=== PATIENT | female | born 1970 ===

== ENCOUNTER 2020-05-03 10:36 | Outpatient (REF) | payer MEDICAID, SELFPAY | END 2020-05-03 10:37 | disposition home or self-care (01) | LOC: HO.LAB 10:36 | PROVIDERS: PCP Physician Assistant Medical; Visit Provider Internal Medicine Gastroenterology | DX: Z13.89 Encounter for screening for other disorder (principal) ==

== ENCOUNTER 2020-05-07 10:52 | Outpatient (REF) | payer MEDICAID, SELFPAY | END 2020-05-07 10:53 | disposition home or self-care (01) | LOC: HO.LNP 10:52 | PROVIDERS: Visit Provider Internal Medicine Gastroenterology | DX: B96.81 Helicobacter pylori [H. pylori] as the cause of diseases classified elsewhere (principal) | CPT/HCPCS: 87338 ==

== ENCOUNTER → 2020-05-24 09:30 | Outpatient (BNVA) | payer MEDICAID, SELFPAY | PROVIDERS: PCP Physician Assistant Medical; Visit Provider Internal Medicine Gastroenterology | DX: Z76.89 Persons encountering health services in other specified circumstances (principal) ==

== ENCOUNTER 2020-05-26 21:18 | Emergency (ER) | payer MEDICAID, SELFPAY ==
[2020-05-26 21:29] VITALS: BP 111/79; PULSE 94; RESP 18; TEMP 37.1; O2SAT 98; BMI 28.3
--- NOTE | 2020-05-26 21:51 | CT_ITS ---
EXAMINATION: CT ABDOMEN AND PELVIS WITH CONTRAST CLINICAL INFORMATION: Abdominal pain. COMPARISON: CT abdomen and pelvis from 12/05/2019. TECHNIQUE: Multidetector volumetric imaging was performed through the abdomen and pelvis after the administration of 85 mL of Omnipaque 350 intravenous contrast. Sagittal and coronal reformatted images were obtained on the technologist's workstation. DLP: 528 mGy-cm. This CT examination was performed using dose optimization techniques as appropriate, variously including the following: *Automated exposure control. *Adjustment of mA and/or kV according to patient size (this includes techniques or standardized protocols for targeted exams where dose is matched to indication/reason for exam; i.e. extremities or head). *Use of iterative reconstruction technique. FINDINGS: Lower Chest: Mild bilateral dependent atelectasis. Otherwise, no diffuse or focal parenchymal abnormalities in the visualized lung bases. No demonstrated abnormalities of the visualized cardiac structures. Liver, Biliary Ducts, and Gallbladder: The liver is normal in size and attenuation without focal hepatic lesions or biliary ductal dilatation. The gallbladder is physiologically distended without radiopaque gallstones, pericholecystic fluid, or significant gallbladder wall thickening. Pancreas: The pancreas is normal in appearance. Adrenal Glands: The adrenal glands are normal in appearance. Spleen: The spleen is normal in appearance. Kidneys and Ureters: The kidneys demonstrate symmetric nephrograms without evidence of nephrolithiasis or hydronephrosis. No ureterolithiasis or hydroureter. Urinary Bladder: The urinary bladder is partially distended without focal wall thickening. No bladder calculi are demonstrated. Gastrointestinal System: The stomach is decompressed and therefore not well evaluated on this exam. The small bowel is of normal caliber without regions of abnormal wall enhancement. Potential mild circumferential wall thickening of the distal rectum. Otherwise, the colon is normal in appearance without focal wall thickening or pericolonic inflammatory change. Normal appendix. Genitourinary: Partially calcified 1.8 cm nodule along the posterior wall of the uterus is consistent with a uterine fibroid. Mildly lobulated contours of the remainder of the uterus suggestive of additional small noncalcified fibroids. Fibroids No adnexal soft tissue masses. Intra-abdominal and Retroperitoneal Spaces: No intra-abdominal free fluid collections or gas. No mesenteric, retroperitoneal, or inguinal lymphadenopathy. Vasculature: The abdominal aorta is of normal contour and caliber. Musculoskeletal: Mild to moderate multilevel degenerative changes of the spine. Advanced degenerative disc disease at L5-S1. No lytic or sclerotic osseous lesions demonstrated. No soft tissue masses demonstrated. CT/CT abdomen pelvis w con IMPRESSION: 1. Inflammatory change previously demonstrated at the splenic flexure of the colon is largely resolved compared to exam from 12/05/2019. Potential slight wall thickening of the distal rectum. Recommend correlation with symptoms of proctitis. 2. Multi-fibroid uterus. 3. No additional CT abnormalities explain the patient's symptoms.
[2020-05-26 22:00] VITALS: BP 114/78; PULSE 81; RESP 16; O2SAT 98
[2020-05-26] MEDS: HYDROmorphone HCl 0.5 MG/0.5 ML SYRINGE IVPUSH (22:01)
--- NOTE | 2020-05-26 22:01 | ED_ITS ---
HPI - Abdominal Pain General Chief Complaint: Abdominal Pain Stated Complaint: Abdominal pian Time Seen by Provider: 05/26/20 21:45 History of Present Illness HPI narrative: patient is a 49-year-old female presents today with having abdominal pain that is ongoing for the last 3 days. It is worse over the left side. No history of similar pain in the past. History of diverticulitis in the past. No cough no congestion or upper respiratory symptoms. No diaphoresis. No fever. Positive BM. Patient did have some diarrhea. History of H pylori infections in the past. Patient denies any vomiting. Positive nausea. He is sexually active does not think she is . No vaginal discharge. No pain on urination. Patient from home. No recent travel. Related Data Home Medications Medication Instructions Recorded Confirmed acetaminophen 650 mg 650 mg PO Q12H 05/24/20 05/24/20 tablet,extended release lisinopril 10 mg tablet 10 mg PO DAILY 05/24/20 05/24/20 omeprazole 20 mg capsule,delayed 20 mg PO DAILY 05/24/20 05/24/20 release Previous Rx's Medication Instructions Recorded amoxicillin 500 mg capsule 500 mg PO TID 10 Days #30 cap 05/24/20 bismuth subsalicylate 262 mg 2 tab PO QID PRN 10 Days #80 tab 05/24/20 chewable tablet metronidazole 500 mg tablet 500 mg PO TID 10 Days #30 tab 05/24/20 Allergies Allergy/AdvReac Type Severity Reaction Status Date / Time doxycycline Allergy Unknown Itching Verified 05/26/20 21:28 oxycodone Allergy Unknown Itching Verified 05/26/20 21:28 Tylox Allergy Unknown Itching Uncoded 05/24/20 09:32 Review of Systems Review of Systems Constitutional: No Weight loss, No Fever, No Chills, No Night Sweats, No Fatigue, No Malaise ENT/Mouth: No Hearing loss, No Ear Pain, No Nasal Congestion, No Sinus Pain, No Hoarseness, No sore throat, No Rhinorrhea, No Swallowing Difficulty Eyes: No Eye Pain, No Swelling, No Redness, No Foreign Body, No Discharge, No Vision Changes Cardiovascular: No Chest Pain, No SOB, No Dyspnea on Exertion, No Orthopnea, No Edema, No Palpitations Respiratory: No Cough, No Sputum, No Wheezing, No Smoke Exposure, No Dyspnea Gastrointestinal: positive nausea, positive abdominal pain positive diarrhea Genitourinary: no irregular bleeding, No Dysuria, No Urinary Frequency, No Hem aturia, No Urinary Incontinence, No Urgency, No Flank Pain, No Urinary Flow Changes, No Hesitancy Musculoskeletal: No joint pain, No Myalgias, No Joint Swelling Skin: No Skin Lesions, No rash Neuro: No Weakness, No Numbness, No Paresthesias, No Loss of Consciousness, No Dizziness, No Headache Psych: No Anxiety/Panic, No Depression, No SI/HI/AH/VH, No Social Issues, Heme/Lymph: No Bruising, No Bleeding,No Lymphadenopathy Endocrine: No Polyuria, No Polydipsia, No Temperature Intolerance Physical Exam Vital Signs: Vital Signs: Last Vital Signs Temp 98.7 F 05/26/20 21:29 Pulse 81 05/27/20 00:00 Resp 16 05/27/20 00:00 BP 128/87 05/27/20 00:00 Pulse Ox 98 05/27/20 00:00 Body Mass Index 28.3 Appearance: Alert. Oriented X3. No acute distress. Eyes: Pupils equal, round and reactive to light. ENT: Pharynx normal. Neck: Normal inspection. Neck supple. No lymph nodes noted. No crepitus CVS: Normal heart rate and rhythm. Pulses normal. Normal S1 and S2 Respiratory: No respiratory distress. Breath sounds normal. No Wheezing. No rales Abdomen: mild left lower quadrant tenderness no rebound or guarding Skin: Skin warm and dry. Normal skin color. Normal skin turgor. Extremities: No lower extremity edema. Neurovascular intact to all extremities. No Lacerations. No Rash Neuro: Oriented X 3. No motor deficit. No sensory deficit. Moving all extermities. No slurred speech MDM - Abdominal Pain MDM Narrative Medical decision making narrative: Patient's urine showed no evidence of infection. test is negative. No evidence for ectopic . Electrolytes unremarkable. CT scan of the abdomen showed no evidence of bowel obstruction, abscess, perforation. No evidence for kidney stone.Question mild proctitis noted. Positive fibroid noted. Patient well-appearing will discharge patient home. Close follow-up on an outpatient basis. Differential Diagnosis Differential diagnosis: Likely abdominal pain Medical Records Attestation: I reviewed the patient's medical records. Lab Data Attestation: I reviewed the patient's lab results. Result diagrams: 05/26/20 21:59 05/26/20 21:59 Labs: Lab Results 05/26/20 05/26/20 05/26/20 Range/Units 21:59 21:59 21:59 WBC 6.1 (4.8-10.8) X10*3/uL RBC 3.77 L (4.20-5.50) X10*6/uL Hgb 11.8 L (12.0-16.0) g/dl Hct 35.9 L (37-47) % MCV 95.2 (80-98) fL MCH 31.3 (27.0-33.0) pg MCHC 32.9 (31.0-35.0) g/dl RDW 12.5 (11.0-16.0) % Plt Count 240 (160-400) X10*3/uL MPV 10.9 (9.4-12.3) fL Immature Gran % (Auto) 0.2 (0.0-0.4) % Neut % (Auto) 40.0 L (45-73) % Lymph % (Auto) 47.6 H (20-40) % [place] % (Auto) 8.6 (2-11) % Eos % (Auto) 3.1 (0-4) % Baso % (Auto) 0.5 (0-2) % Lymph # (Auto) 2.9 (1.2-4.9) X10*3/uL [place] # (Auto) 0.5 (0.1-1.2) X10*3/uL Eos # (Auto) 0.2 (0.0-0.4) X10*3/uL Baso # (Auto) 0.0 (0.0-0.2) X10*3/uL Abs Immat Gran (auto) 0.01 (0.00-0.03) X10*3/uL Absolute Neuts (auto) 2.5 (2.0-8.3) X10*3/uL Absolute Nucleated RBC 0.000 (0.0-0.012) X10*3/uL Nucleated RBC % (auto) 0.0 (0.0-0.2) /100WBC Hold Blue Top SEE NOTE Sodium 142 (135-145) mmol/L Potassium 3.7 (3.3-5.1) mmol/l Chloride 107 (96-108) mmol/L Carbon Dioxide 26 (22-29) mmol/L Anion Gap 13 (12-20) BUN 16 (9-16) mg/dL Creatinine 0.67 (0.5-1.4) mg/dL Estim Creat Clear Calc 82.3 Estimated GFR > 60 Random Glucose 93 (60-115) mg/dL Calcium 8.6 (8.4-10.2) mg/dL Total Bilirubin 0.3 (0.0-1.0) mg/dL AST 18 (5-31) U/L ALT 15 (0-31) U/L Alkaline Phosphatase 79 (39-117) U/L Total Protein 6.8 (6.5-8.0) g/dL Albumin 4.2 (3.5-5.0) g/dL Lipase 22 (8-78) U/L Urine Color Urine Appearance Urine pH (5.0-8.0) Ur Specific [place] (1.005-1.025) Urine Protein (NEG-TRACE) MG/DL Urine Glucose (UA) (NEG) MG/DL Urine Ketones (NEG) MG/DL Urine Blood (NEG) Urine Nitrite (NEG) Ur Leukocyte Esterase (NEG) Urine Test (NEGATIVE) 05/26/20 Range/Units 22:03 WBC (4.8-10.8) X10*3/uL RBC (4.20-5.50) X10*6/uL Hgb (12.0-16.0) g/dl Hct (37-47) % MCV (80-98) fL MCH (27.0-33.0) pg MCHC (31.0-35.0) g/dl RDW (11.0-16.0) % Plt Count (160-400) X10*3/uL MPV (9.4-12.3) fL Immature Gran % (Auto) (0.0-0.4) % Neut % (Auto) (45-73) % Lymph % (Auto) (20-40) % [place] % (Auto) (2-11) % Eos % (Auto) (0-4) % Baso % (Auto) (0-2) % Lymph # (Auto) (1.2-4.9) X10*3/uL [place] # (Auto) (0.1-1.2) X10*3/uL Eos # (Auto) (0.0-0.4) X10*3/uL Baso # (Auto) (0.0-0.2) X10*3/uL Abs Immat Gran (auto) (0.00-0.03) X10*3/uL Absolute Neuts (auto) (2.0-8.3) X10*3/uL Absolute Nucleated RBC (0.0-0.012) X10*3/uL Nucleated RBC % (auto) (0.0-0.2) /100WBC Hold Blue Top Sodium (135-145) mmol/L Potassium (3.3-5.1) mmol/l Chloride (96-108) mmol/L Carbon Dioxide (22-29) mmol/L Anion Gap (12-20) BUN (9-16) mg/dL Creatinine (0.5-1.4) mg/dL Estim Creat Clear Calc Estimated GFR Random Glucose (60-115) mg/dL Calcium (8.4-10.2) mg/dL Total Bilirubin (0.0-1.0) mg/dL AST (5-31) U/L ALT (0-31) U/L Alkaline Phosphatase (39-117) U/L Total Protein (6.5-8.0) g/dL Albumin (3.5-5.0) g/dL Lipase (8-78) U/L Urine Color YELLOW Urine Appearance CLEAR Urine pH 6.0 (5.0-8.0) Ur Specific [place] 1.025 (1.005-1.025) Urine Protein NEG (NEG-TRACE) MG/DL Urine Glucose (UA) NEG (NEG) MG/DL Urine Ketones NEG (NEG) MG/DL Urine Blood NEG (NEG) Urine Nitrite NEG (NEG) Ur Leukocyte Esterase NEG (NEG) Urine Test NEGATIVE (NEGATIVE) Discharge Plan Discharge Clinical Impression: Abdominal pain in female, Fibroid Patient Disposition: Home, Self-Care Prescriptions: No Action metronidazole 500 mg tablet 500 mg PO TID 10 Days Qty: 30 RF: 0 lisinopril 10 mg tablet 10 mg PO DAILY RF: 0 omeprazole 20 mg capsule,delayed release(DR/EC) 20 mg PO DAILY RF: 0 acetaminophen [Tylenol 8 Hour] 650 mg tablet extended release 650 mg PO Q12H RF: 0 bismuth subsalicylate 262 mg tablet,chewable 2 tab PO QID PRN (Reason: diarrhea) 10 Days Qty: 80 RF: 0 amoxicillin 500 mg capsule 500 mg PO TID 10 Days Qty: 30 RF: 0 Referrals: Physician,Unknown [Primary Care Provider] - 2 days Print Language: [place] COUNTS INCLUDE 234 BEDS AT THE [facility] Past Medical History Attestation statement: The following information was validated with the patient. Surgical History History of colonoscopy Hx of endoscopy Family History Family History Father Alive and well Mother Hx of diabetes insipidus Social History Social History Alcohol intake: current Alcohol intake frequency: holidays/special occasions only Smoking Status: Never smoker Substance Use Type: Marijuana Advance Directives: No Advance Directives Information Provided: No
[2020-05-26] MEDS: 0.9 % Sodium Chloride 1,000 ML 999 ML IVCONT (22:02)
[2020-05-26 22:07] LABS: MANUAL DIFF FLAG NO
[2020-05-26 22:10] LABS: Basophils Percent Auto 0.5 % (0-2); Eosinophils Absolute Auto 0.2 X10*3/uL (0.0-0.4); Eosinophils Percent Auto 3.1 % (0-4); Hematocrit 35.9 % (37-47); Hemoglobin 11.8 g/dl (12.0-16.0); Imm Gran Abs Auto 0.01 X10*3/uL (0.00-0.03); Imm Gran Pct Auto 0.2 % (0.0-0.4); Lymphocytes Absolute Auto 2.9 X10*3/uL (1.2-4.9); Lymphocytes Percent Auto 47.6 % (20-40); Mean Corpuscular HGB Conc 32.9 g/dl (31.0-35.0); Mean Corpuscular Hemoglobin 31.3 pg (27.0-33.0); Mean Corpuscular Volume 95.2 fL (80-98); Mean Platelet Volume 10.9 fL (9.4-12.3); Monocytes Absolute Auto 0.5 X10*3/uL (0.1-1.2); Monocytes Percent Auto 8.6 % (2-11); Neutrophils Absolute Auto 2.5 X10*3/uL (2.0-8.3); Platelet Count 240 X10*3/uL (160-400); Red Blood Count 3.77 X10*6/uL (4.20-5.50); Red Cell Distribution Width 12.5 % (11.0-16.0); White Blood Count 6.1 X10*3/uL (4.8-10.8)
[2020-05-26 22:14] LABS: Glucose Urine UA NEG (NEG); Leukocyte Esterase Urine NEG (NEG); Nitrite Urine NEG (NEG); Specific Gravity - Urine 1.025 (1.005-1.025); Urine Blood NEG (NEG); Urine Ketones NEG (NEG); Urine Protein NEG (NEG-TRACE)
[2020-05-26 22:17] LABS: Appearance Urine CLEAR; Color Urine YELLOW
[2020-05-26 22:18] LABS: UPreg QC Valid YES; Urine Pregnancy NEGATIVE (NEGATIVE)
[2020-05-26 22:30] LABS: Alanine Aminotransferase 15 U/L (0-31); Albumin Level 4.2 g/dL (3.5-5.0); Alkaline Phosphatase 79 U/L (39-117); Anion Gap 13 (12-20); Aspartate Amino Transferase 18 U/L (5-31); Bilirubin Total 0.3 mg/dL (0.0-1.0); Blood Urea Nitrogen 16 mg/dL (9-16); Calcium 8.6 mg/dL (8.4-10.2); Carbon Dioxide 26 mmol/L (22-29); Chloride 107 mmol/L (96-108); Creatinine Clr Calc Pharmacy 82.3; Estimated Glomerular Filt Rate > 60; Glucose Random 93 mg/dL (60-115); Lipase 22 U/L (8-78); Potassium 3.7 mmol/l (3.3-5.1); Sodium 142 mmol/L (135-145); Total Protein 6.8 g/dL (6.5-8.0)
[2020-05-26] MEDS: iohexoL 350 MG/ML 100 ML INFUS..BTL IV (22:49)
[2020-05-26 23:46] VITALS: BP 116/74; RESP 16; O2SAT 98
[2020-05-27] VITALS: BP 128/87; PULSE 81; RESP 16; O2SAT 98
== END 2020-05-27 00:27 | disposition home or self-care (01) ==
PROVIDERS: Emergency Provider Emergency Medicine Emergency Medical Services
DX: R10.32 Left lower quadrant pain (principal); D25.9 Leiomyoma of uterus, unspecified; I10 Essential (primary) hypertension
CPT/HCPCS: 36415; 74177; 80053; 81003; 81025; 83690; 85025; 99284; J1170; Q9967

== ENCOUNTER 2020-08-08 11:24 | Emergency (ER) | payer MEDICAID, SELFPAY | END 2020-08-08 14:24 | disposition left against medical advice (07) | PROVIDERS: Emergency Provider Emergency Medicine; PCP Physician Assistant Medical | DX: R10.9 Unspecified abdominal pain (principal) ==

== ENCOUNTER 2020-08-14 07:16 | Outpatient (REF) | payer MEDICAID, SELFPAY | END 2020-08-14 07:17 | disposition home or self-care (01) | LOC: HO.LNP 07:16 | PROVIDERS: Visit Provider Internal Medicine Gastroenterology | DX: K29.70 Gastritis, unspecified, without bleeding (principal); B96.81 Helicobacter pylori [H. pylori] as the cause of diseases classified elsewhere; R10.9 Unspecified abdominal pain | CPT/HCPCS: 87338 ==

== ENCOUNTER → 2020-09-06 09:15 | Outpatient (BNVA) | payer MEDICAID, SELFPAY | PROVIDERS: PCP Physician Assistant Medical; Visit Provider Internal Medicine Gastroenterology ==

== ENCOUNTER 2020-09-27 09:58 | Outpatient (REF) | payer MEDICAID, SELFPAY ==
--- NOTE | ~2020-09-27 | US_ITS ---
EXAMINATION: US PELVIS, COMPLETE CLINICAL INFORMATION: Leiomyoma of the uterus. COMPARISON: CT 05/26/2020. Ultrasound 03/02/2009. TECHNIQUE: Transabdominal and transvaginal imaging was performed. FINDINGS: LMP: Postmenopausal. Uterus is anteverted, measuring 8.2 x 4 x 5.7 cm. Endometrial thickness 0.6 cm. Heterogeneous echotexture of the myometrium. Multiple heterogeneous hypoechoic foci within the uterus, probably reflecting fibroids. Hypoechoic focus in the fundus measuring 2.6 cm; hypoechoic focus in the mid body anteriorly measuring 0.8 cm; hypoechoic focus in the posterior body measuring 1.7 cm. Right ovary measures 2.2 x 1 x 2.6 cm. Volume 3 mL. Left ovary measures 2.3 x 1.1 x 1.7 cm. Volume 2.3 mL. Bilateral ovaries appear unremarkable. No free fluid in the cul-de-sac. US/US pelvic complete IMPRESSION: 1. Multiple hypoechoic foci in the uterine parenchyma, probable fibroids. Largest measures 2.6 cm. 2. Endometrial thickness 0.6 cm. Patient is postmenopausal. Please clinically correlate. If the patient is symptomatic, further evaluation would be needed. Guidelines for postmenopausal patients the endometrial thicknesses limits are as follows: ? 8mm or less is normal if no bleeding (10mm is okay if on tamoxifen) ? 4mm max if bleeding ? Pre-menopausal patients, the endometrium can become very thick during the menstrual cycle, normally up to 15mm
--- NOTE | ~2020-09-27 | US_ITS ---
EXAMINATION: US ABDOMEN COMPLETE CLINICAL INFORMATION: Generalized abdominal pain. COMPARISON: CT abdomen and pelvis 05/26/2020. Ultrasound abdomen complete 10/30/2012. TECHNIQUE: Real-time imaging of the abdominal viscera. FINDINGS: PANCREAS: The visualized head and body of the pancreas appears unremarkable. Remainder of the pancreas is obscured by bowel gas. ABDOMINAL AORTA: The proximal, mid, and distal segments are normal in caliber. INFERIOR VENA CAVA: Visualized portions are normal. LIVER: Normal. The liver is normal in size. The liver contour is normal. Parenchymal echogenicity is normal. No focal hepatic lesion. There is no intrahepatic biliary duct dilatation seen. GALLBLADDER: Normal. The gallbladder is physiologically distended without evidence of stones, sludge, polyps, wall thickening or pericholecystic fluid. COMMON BILE DUCT: Normal in caliber measuring 0.4 cm in diameter. RIGHT KIDNEY: Normal. No hydronephrosis. No renal calculi or focal parenchymal lesions. The kidney measures 11.0 cm in maximum dimension. LEFT KIDNEY: Normal. No hydronephrosis. No renal calculi or focal parenchymal lesions. The kidney measures 10.8 cm in maximum dimension. SPLEEN: Normal. The spleen measures 10.2 cm in maximum dimension. FREE FLUID: None. US/US abdomen complete IMPRESSION: 1. No acute findings seen. 2. Unremarkable abdominal ultrasound. Etiology of patient's symptoms has not been determined by ultrasound.
--- NOTE | ~2020-09-27 | US_ITS ---
EXAMINATION: US PELVIS, COMPLETE CLINICAL INFORMATION: Leiomyoma of the uterus. COMPARISON: CT 05/26/2020. Ultrasound 03/02/2009. TECHNIQUE: Transabdominal and transvaginal imaging was performed. FINDINGS: LMP: Postmenopausal. Uterus is anteverted, measuring 8.2 x 4 x 5.7 cm. Endometrial thickness 0.6 cm. Heterogeneous echotexture of the myometrium. Multiple heterogeneous hypoechoic foci within the uterus, probably reflecting fibroids. Hypoechoic focus in the fundus measuring 2.6 cm; hypoechoic focus in the mid body anteriorly measuring 0.8 cm; hypoechoic focus in the posterior body measuring 1.7 cm. Right ovary measures 2.2 x 1 x 2.6 cm. Volume 3 mL. Left ovary measures 2.3 x 1.1 x 1.7 cm. Volume 2.3 mL. Bilateral ovaries appear unremarkable. No free fluid in the cul-de-sac. US/US transvaginal IMPRESSION: 1. Multiple hypoechoic foci in the uterine parenchyma, probable fibroids. Largest measures 2.6 cm. 2. Endometrial thickness 0.6 cm. Patient is postmenopausal. Please clinically correlate. If the patient is symptomatic, further evaluation would be needed. Guidelines for postmenopausal patients the endometrial thicknesses limits are as follows: ? 8mm or less is normal if no bleeding (10mm is okay if on tamoxifen) ? 4mm max if bleeding ? Pre-menopausal patients, the endometrium can become very thick during the menstrual cycle, normally up to 15mm
== END 2020-09-27 09:59 | disposition home or self-care (01) ==
LOC: HO.US 09:58
PROVIDERS: Visit Provider Internal Medicine Gastroenterology
DX: R10.84 Generalized abdominal pain (principal); D25.9 Leiomyoma of uterus, unspecified
CPT/HCPCS: 76700; 76830; 76856

== ENCOUNTER → 2020-10-04 12:18 | Outpatient (BNVA) | payer MEDICAID, SELFPAY | PROVIDERS: PCP Physician Assistant Medical; Visit Provider Internal Medicine Gastroenterology ==

== ENCOUNTER 2021-01-10 01:13 | Emergency (ER) | payer MEDICAID, SELFPAY ==
[2021-01-10 01:21] VITALS: BP 119/47; PULSE 63; RESP 16; TEMP 36.4; O2SAT 100; BMI 27.3
--- NOTE | 2021-01-10 01:22 | ED.ABDPAIN ---
HPI - Abdominal Pain General Chief Complaint: Abdominal Pain Stated Complaint: abdominal pain and dizziness Time Seen by Provider: 01/10/21 01:21 Source: patient Mode of arrival: ambulatory Limitations: no limitations History of Present Illness HPI narrative: Patient's history of GERD, dysphagia, intermittent episode of abdominal pain and with diarrhea alternating with constipation had endoscopy in 02/08 which shows mild gastric erythema and chronic appearing erosions colonoscopy showed hyperplastic polyp and moderate diverticulosis , patient had a episode of diverticulitis 2013 patient been treated for H pylori in 02/08. last night patient had heavy meal went to sleep at 09:30 woke up prior to arrival with diffuse abdominal pain nausea and diarrhea. Patient denies any urine complaints no fever no chills Related Data Home Medications Medication Instructions Recorded Confirmed acetaminophen 650 mg 650 mg PO Q12H 05/24/20 10/04/20 tablet,extended release lisinopril 10 mg tablet 10 mg PO DAILY 05/24/20 10/04/20 Previous Rx's Medication Instructions Recorded omeprazole 20 mg capsule,delayed 20 mg PO DAILY #30 cap 01/07/21 release dicyclomine 20 mg PO QID PRN #20 tab 01/10/21 Allergies Allergy/AdvReac Type Severity Reaction Status Date / Time doxycycline Allergy Unknown Itching Verified 01/10/21 01:27 oxycodone Allergy Unknown Itching Verified 01/10/21 01:27 Tylox Allergy Unknown Itching Uncoded 01/10/21 01:27 Review of Systems Review of Systems Yes all other systems are reviewed and are negative Physical Exam Vital Signs: Vital Signs: Last Vital Signs Temp 97.6 F 01/10/21 01:21 Pulse 73 01/10/21 03:46 Resp 16 01/10/21 03:46 BP 99/65 01/10/21 03:46 Pulse Ox 97 01/10/21 03:46 Body Mass Index 27.3 Appearance: Alert. Oriented X3. Mild distress Eyes: PERRLA, ENT: Pharynx normal. Oral Mucosa moist Neck: Normal inspection. Neck supple. CVS: Normal heart rate and rhythm. Pulses normal. Respiratory: No respiratory distress. Equal air entry bilateral, no wheezing/rales/rhonchi Abdomen: Soft , diffusely tender no rebound tenderness or guarding Bowel sounds are present, no mass palpable, no CVA tenderness Skin: Skin warm and dry. Normal skin color. Normal skin turgor. Extremities: No lower extremity edema. No calf tenderness Neuro: Oriented X 3. No motor deficit. MDM - Abdominal Pain MDM Narrative Medical decision making narrative: Patient feeling much better now taking p.o. fluid will discharge patient hyome Lab Data Attestation: I reviewed the patient's lab results. Result diagrams: 01/10/21 01:34 01/10/21 01:34 Labs: Lab Results 01/10/21 01/10/21 01/10/21 Range/Units 01:34 01:34 03:14 WBC 6.9 (4.8-10.8) X10*3/uL RBC 3.76 L (4.20-5.50) X10*6/uL Hgb 11.6 L (12.0-16.0) g/dl Hct 35.3 L (37-47) % MCV 93.9 (80-98) fL MCH 30.9 (27.0-33.0) pg MCHC 32.9 (31.0-35.0) g/dl RDW 12.8 (11.0-16.0) % Plt Count 234 (160-400) X10*3/uL MPV 10.3 (9.4-12.3) fL Immature Gran % (Auto) 0.3 (0.0-0.4) % Neut % (Auto) 37.2 L (45-73) % Lymph % (Auto) 48.8 H (20-40) % [place] % (Auto) 10.2 (2-11) % Eos % (Auto) 3.1 (0-4) % Baso % (Auto) 0.4 (0-2) % Lymph # (Auto) 3.3 (1.2-4.9) X10*3/uL [place] # (Auto) 0.7 (0.1-1.2) X10*3/uL Eos # (Auto) 0.2 (0.0-0.4) X10*3/uL Baso # (Auto) 0.0 (0.0-0.2) X10*3/uL Abs Immat Gran (auto) 0.02 (0.00-0.03) X10*3/uL Absolute Neuts (auto) 2.6 (2.0-8.3) X10*3/uL Absolute Nucleated RBC 0.000 (0.0-0.012) X10*3/uL Nucleated RBC % (auto) 0.0 (0.0-0.2) /100WBC Sodium 142 (135-145) mmol/L Potassium 3.3 (3.3-5.1) mmol/L Chloride 107 (96-108) mmol/L Carbon Dioxide 25 (22-29) mmol/L Anion Gap 13 (12-20) BUN 17 H (9-16) mg/dL Creatinine 0.70 (0.5-1.4) mg/dL Estim Creat Clear Calc 80.0 Estimated GFR > 60 Random Glucose 88 (60-115) mg/dL Calcium 8.9 (8.4-10.2) mg/dL Total Bilirubin 0.3 (0.0-1.0) mg/dL AST 17 (5-31) U/L ALT 10 (0-31) U/L Alkaline Phosphatase 74 (39-117) U/L Total Protein 6.9 (6.5-8.0) g/dL Albumin 4.2 (3.5-5.0) g/dL Lipase 17 (8-78) U/L Urine Color STRAW Urine Appearance CLEAR Urine pH 7.0 (5.0-8.0) Ur Specific [place] 1.010 (1.005-1.025) Urine Protein NEG (NEG-TRACE) MG/DL Urine Glucose (UA) NEG (NEG) MG/DL Urine Ketones NEG (NEG) MG/DL Urine Blood 1+ H (NEG) Urine Nitrite NEG (NEG) Ur Leukocyte Esterase NEG (NEG) Urine RBC 0-2 (0) /HPF Urine WBC 0-2 (0-4) /HPF Ur Squamous Epith Cells 1+ /LPF Urine Bacteria NONE /LPF Hyaline Casts 0-2 /LPF Discharge Plan Discharge Clinical Impression: Irritable bowel syndrome Qualifiers: Irritable bowel syndrome type: with diarrhea Qualified Code(s): K58.0 - Irritable bowel syndrome with diarrhea Patient Disposition: Home, Self-Care Instructions: Irritable Bowel Syndrome (ED) Additional Instructions: Drink plenty of fluid take medication as prescribed follow with PCP/helper metal [place] Prescriptions: New dicyclomine 20 mg tablet 20 mg PO QID PRN (Reason: abdominal pain) Qty: 20 RF: 0 No Action omeprazole 20 mg capsule,delayed release(DR/EC) 20 mg PO DAILY Qty: 30 RF: 3 lisinopril 10 mg tablet 10 mg PO DAILY RF: 0 acetaminophen [Tylenol 8 Hour] 650 mg tablet extended release 650 mg PO Q12H RF: 0 Stand Alone Forms: Work/School Release Interventions: ED Discharge Assessment Last Done: 01/10/21 04:09 Discharge Date/Time: 01/10/21 04:11 [facility] Past Medical History Medical History Diverticulitis Surgical History History of colonoscopy Hx of endoscopy Family History Family History Father Alive and well Mother Hx of diabetes insipidus Social History Social History Household Members: Family, Children and Other Alcohol intake: current Alcohol intake frequency: a few times a month Substance Use Type: Marijuana Advance Directives: No Advance Directives Information Provided: Yes Patient : No
--- NOTE | 2021-01-10 01:35 | PC.NURSE ---
IV established, labs obtained. at bedside for primary eval.
[2021-01-10 01:37] VITALS: BP 124/86; PULSE 72; O2SAT 100
[2021-01-10 01:39] LABS: MANUAL DIFF FLAG NO
[2021-01-10 01:41] LABS: Basophils Percent Auto 0.4 % (0-2); Eosinophils Absolute Auto 0.2 X10*3/uL (0.0-0.4); Eosinophils Percent Auto 3.1 % (0-4); Hematocrit 35.3 % (37-47); Hemoglobin 11.6 g/dl (12.0-16.0); Imm Gran Abs Auto 0.02 X10*3/uL (0.00-0.03); Imm Gran Pct Auto 0.3 % (0.0-0.4); Lymphocytes Absolute Auto 3.3 X10*3/uL (1.2-4.9); Lymphocytes Percent Auto 48.8 % (20-40); Mean Corpuscular HGB Conc 32.9 g/dl (31.0-35.0); Mean Corpuscular Hemoglobin 30.9 pg (27.0-33.0); Mean Corpuscular Volume 93.9 fL (80-98); Mean Platelet Volume 10.3 fL (9.4-12.3); Monocytes Absolute Auto 0.7 X10*3/uL (0.1-1.2); Monocytes Percent Auto 10.2 % (2-11); Neutrophils Absolute Auto 2.6 X10*3/uL (2.0-8.3); Neutrophils Percent Auto 37.2 % (45-73); Platelet Count 234 X10*3/uL (160-400); Red Blood Count 3.76 X10*6/uL (4.20-5.50); Red Cell Distribution Width 12.8 % (11.0-16.0); White Blood Count 6.9 X10*3/uL (4.8-10.8)
[2021-01-10] MEDS: 0.9 % Sodium Chloride 1,000 ML 999 ML IVCONT (01:47)
[2021-01-10] MEDS: ondansetron HCL 4 MG/2 ML VIAL IVPUSH (01:47)
[2021-01-10] MEDS: Dicyclomine HCl 10 MG CAPSULE 20 MG PO (01:47)
--- NOTE | 2021-01-10 01:49 | PC.NURSE ---
Medicated per MAR.
[2021-01-10 02:04] LABS: Alanine Aminotransferase 10 U/L (0-31); Albumin Level 4.2 g/dL (3.5-5.0); Alkaline Phosphatase 74 U/L (39-117); Anion Gap 13 (12-20); Aspartate Amino Transferase 17 U/L (5-31); Bilirubin Total 0.3 mg/dL (0.0-1.0); Blood Urea Nitrogen 17 mg/dL (9-16); Calcium 8.9 mg/dL (8.4-10.2); Carbon Dioxide 25 mmol/L (22-29); Chloride 107 mmol/L (96-108); Estimated Glomerular Filt Rate > 60; Glucose Random 88 mg/dL (60-115); Lipase 17 U/L (8-78); Potassium 3.3 mmol/L (3.3-5.1); Sodium 142 mmol/L (135-145); Total Protein 6.9 g/dL (6.5-8.0)
--- NOTE | 2021-01-10 03:06 | PC.NURSE ---
Pt ambulating to the bathroom for UA.
[2021-01-10 03:21] LABS: Glucose Urine UA NEG (NEG); Leukocyte Esterase Urine NEG (NEG); Nitrite Urine NEG (NEG); Urine Blood 1+ (NEG); Urine Ketones NEG (NEG); Urine Protein NEG (NEG-TRACE)
--- NOTE | 2021-01-10 03:23 | PC.NURSE ---
Pt off to CT on hospital bed.
[2021-01-10 03:25] LABS: Appearance Urine CLEAR; Color Urine STRAW
[2021-01-10 03:31] LABS: Hyaline Casts Urine 0-2 /LPF; RBC Urine 0-2 /HPF (0); Squamous Epithelial Cell Urine 1+ /LPF; WBC Urine 0-2 /HPF (0-4)
[2021-01-10 03:46] VITALS: BP 99/65; PULSE 73; RESP 16; O2SAT 97
== END 2021-01-10 04:11 | disposition home or self-care (01) ==
PROVIDERS: Emergency Provider Internal Medicine; PCP Internal Medicine
DX: K58.0 Irritable bowel syndrome with diarrhea (principal); K21.9 Gastro-esophageal reflux disease without esophagitis; I10 Essential (primary) hypertension; Z79.899 Other long term (current) drug therapy
CPT/HCPCS: 36415; 80053; 81001; 83690; 85025; 96361; 96374; 99284; J2405

== ENCOUNTER 2021-03-21 09:55 | Outpatient (REF) | payer MEDICAID, SELFPAY ==
--- NOTE | ~2021-03-21 | XR_ITS ---
EXAMINATION: XR SHOULDER, RIGHT CLINICAL INFORMATION: Pain. COMPARISON: 09/03/2018 TECHNIQUE: Three views of the right shoulder. FINDINGS: There is some mild sclerotic change at the insertion of the superior rotator cuff. There is no evidence for an acute fracture or dislocation. The glenohumeral articulation is felt to be within normal limits. Possible acromial spurring. XR/XR shoulder RT min 2V IMPRESSION: Once again some degeneration superiorly along the humeral head. Findings may suggest degeneration at the insertion of the superior rotator cuff. No acute bony finding. If further evaluation is warranted recommend MRI
== END 2021-03-21 09:56 | disposition home or self-care (01) ==
LOC: HO.HOSX 09:55
PROVIDERS: Visit Provider Physician Assistant
DX: M54.12 Radiculopathy, cervical region (principal); M25.511 Pain in right shoulder
CPT/HCPCS: 73030; 99212

== ENCOUNTER → 2021-05-03 11:08 | Outpatient (BNVA) | payer MEDICAID, SELFPAY | PROVIDERS: Visit Provider Nurse Practitioner Family | DX: M54.12 Radiculopathy, cervical region (principal); S16.1XXD Strain of muscle, fascia and tendon at neck level, subsequent encounter | CPT/HCPCS: 99202 ==

== ENCOUNTER 2021-05-21 15:43 | Outpatient (REF) | payer MEDICAID, SELFPAY ==
--- NOTE | ~2021-05-21 | MR_ITS ---
MR CERVICAL SPINE WITHOUT IV CONTRAST CLINICAL INFORMATION: Cervical region radiculopathy. COMPARISON: None TECHNIQUE: MRI of the cervical spine was obtained using routine sequences without contrast. FINDINGS: This is a limited, motion degraded, and incomplete MRI of the cervical spine secondary to patient claustrophobia. Sagittal T2-weighted imaging is significantly limited by motion. No definite cord signal abnormalities appreciated on the axial series. There is no bone marrow edema. There are no acute fractures. Craniocervical junction is unremarkable. Partially imaged intracranial compartment is unremarkable. Cervical arterial flow voids are maintained. No significant extra spinal soft tissue findings. C2-C3: Shallow central disc protrusion without central canal stenosis. No foraminal stenosis. C3-C4: Slight annular disc bulge. Uncovertebral joint spurring results in mild right-sided foraminal encroachment C4-C5: Disc osteophyte mildly narrows the central canal. Uncovertebral joint hypertrophy and hypertrophic facet arthropathy result in mild left-sided foraminal encroachment. C5-C6: Disc osteophyte and ligamentum flavum thickening result in mild narrowing of the central canal. Uncovertebral joint hypertrophy and hypertrophic facet arthropathy result in moderate to severe bilateral foraminal stenosis. C6-C7: Posterior disc contour is normal. No central canal stenosis and no foraminal stenosis. C7-T1: Posterior disc contour is normal. No central canal stenosis. Uncovertebral joint spurring and facet arthropathy result in mild right-sided foraminal encroachment. MR/MR cervical spine wo con IMPRESSION: - This is a limited, motion degraded, and incomplete MRI of the cervical spine secondary to patient claustrophobia. - Spondylitic changes throughout the cervical spine, greatest at C5-C6 where multifactorial degenerative changes result in moderate to severe bilateral foraminal stenosis. Additional mild spondylitic changes as discussed above.
== END 2021-05-21 15:44 | disposition home or self-care (01) ==
LOC: HO.MRI 15:43
PROVIDERS: Visit Provider Nurse Practitioner Family
DX: M54.12 Radiculopathy, cervical region (principal)
CPT/HCPCS: 72141

== ENCOUNTER 2021-06-22 11:54 | Emergency (ER) | payer MEDICAID, SELFPAY | END 2021-06-22 14:24 | disposition left against medical advice (07) | PROVIDERS: Emergency Provider Emergency Medicine | DX: R10.9 Unspecified abdominal pain (principal); R11.2 Nausea with vomiting, unspecified ==

== ENCOUNTER 2021-06-23 05:32 | Emergency (ER) | payer MEDICAID, SELFPAY ==
[2021-06-23 05:52] VITALS: BP 161/62; PULSE 67; RESP 16; TEMP 36.8; O2SAT 99; BMI 27.2
--- NOTE | 2021-06-23 06:09 | ED_ITS ---
HPI - General Adult General Chief complaint: Upper Respiratory Symptoms Stated complaint: Flu Like Symptoms Time Seen by Provider: 06/23/21 06:00 Source: patient Mode of arrival: ambulatory Limitations: no limitations History of Present Illness HPI narrative: Patient comes to emergency room complaining of nausea, body aches, back pain. Patient states that she was exposed to a COVID-19 co-worker several days ago. Patient complaining of headache, patient has been taking Tylenol, states she cannot take ibuprofen due to peptic ulcer disease Related Data Home Medications Medication Instructions Recorded Confirmed acetaminophen 650 mg 650 mg PO Q12H 05/24/20 10/04/20 tablet,extended release (Tylenol 8 Hour) lisinopril 10 mg tablet 10 mg PO DAILY 05/24/20 10/04/20 tramadol 50 mg tablet 50 mg PO BID PRN 05/03/21 Previous Rx's Medication Instructions Recorded dicyclomine 20 mg tablet 20 mg PO QID PRN #20 tab 01/10/21 omeprazole 20 mg capsule,delayed 20 mg PO DAILY #30 cap 05/11/21 release tizanidine 2 mg tablet 2 mg PO BID PRN #60 tab 05/28/21 acetaminophen 500 mg capsule 500 mg PO QID PRN #14 cap 06/23/21 ondansetron HCl 4 mg tablet 4 mg PO Q6H PRN #10 tab 06/23/21 (Zofran) Allergies Allergy/AdvReac Type Severity Reaction Status Date / Time doxycycline Allergy Unknown Itching Verified 06/23/21 05:55 oxycodone Allergy Unknown Itching Verified 06/23/21 05:55 Tylox Allergy Unknown Itching Uncoded 06/23/21 05:55 Review of Systems Review of Systems: Constitutional : No Weight loss, complaint of chills, fatigue, and generalized malaise ENT/Mouth : No Hearing loss, No Ear Pain, No Nasal Congestion, No Sinus Pain, No Hoarseness, No sore throat, No Rhinorrhea, No Swallowing Difficulty Eyes: No Eye Pain, No Swelling, No Redness, No Foreign Body, No Discharge, No Vision Changes Cardiovascular : No Chest Pain, No SOB, No Dyspnea on Exertion, No Orthopnea, No Edema, No Palpitations Respiratory : No Cough, No Sputum, No Wheezing, No Smoke Exposure, No Dyspnea Gastrointestinal : Complaining of nausea, 1 episode of vomiting, No Diarrhea, No Constipation, No abdominal Pain, No Hematochezia, No Melena Genitourinary : no irregular bleeding, No Dysuria, No Urinary Frequency, No Hematuria, No Urinary Incontinence, No Urgency, No Flank Pain, No Urinary Flow Changes, No Hesitancy Musculoskeletal : No joint pain, complaining of diffuse Myalgias, No Joint Swelling Skin : No Skin Lesions, No rash Neuro : No Weakness, No Numbness, No Paresthesias, No Loss of Consciousness, No Dizziness, No Headache Psych : No Anxiety/Panic, No Depression, No SI/HI/AH/VH, No Social Issues, Heme/Lymph: No Bruising, No Bleeding,No Lymphadenopathy Endocrine : No Polyuria, No Polydipsia, No Temperature Intolerance [facility] Past Medical History Medical History Diverticulitis Surgical History History of colonoscopy Hx of endoscopy Family History Family History Father Alive and well Mother Hx of diabetes insipidus Social History Social History (Updated 03/21/21 @ 11:02 by Wendy Cooley, [facility]) Household Members: Family, Children and Other Alcohol intake: current Alcohol intake frequency: a few times a month Substance Use Type: Marijuana Advance Directives: No Advance Directives Information Provided: No Patient : No Current occupational status: employed 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 Oriented X3. No acute distress. Well- appearing Eyes: Pupils equal, round and reactive to light. ENT: Pharynx normal. Neck: Normal inspection. Neck supple. No lymph nodes noted. No crepitus CVS: Normal heart rate and rhythm. Pulses normal. Normal S1 and S2 Respiratory: No respiratory distress. Breath sounds normal. No Wheezing. No rales Abdomen: Soft and nontender. No rigidity. No distention. Skin: Skin warm and dry. Normal skin color. Normal skin turgor. Extremities: No lower extremity edema. No Lacerations. No Rash Neuro: Oriented X 3. No motor deficit. No sensory deficit. Moving all extermities. No slurred speech. Course Course Course Narrative: Patient tested negative for COVID-19. Patient likely having a viral syndrome. Patient given oral Zofran in the emergency room. Medical Decision Making Lab Data Labs: Lab Results 06/23/21 Range/Units 05:41 COVID-19 (LISA) Negative (Negative) COVID-19 Clin Com See Note Discharge Plan Discharge Clinical Impression: Acute viral syndrome Patient Disposition: Home, Self-Care Instructions: Viral Syndrome (ED) Additional Instructions: Please follow-up with your primary care physician tomorrow. If you have any worsening or new symptoms, please return to the emergency room or call 911 Prescriptions: New ondansetron HCl [Zofran] 4 mg tablet 4 mg PO Q6H PRN (Reason: nausea and vomiting) Qty: 10 RF: 0 acetaminophen 500 mg capsule 500 mg PO QID PRN (Reason: fever or pain) Qty: 14 RF: 0 No Action omeprazole 20 mg capsule,delayed release(DR/EC) 20 mg PO DAILY Qty: 30 RF: 3 dicyclomine 20 mg tablet 20 mg PO QID PRN (Reason: abdominal pain) Qty: 20 RF: 0 lisinopril 10 mg tablet 10 mg PO DAILY RF: 0 acetaminophen [Tylenol 8 Hour] 650 mg tablet extended release 650 mg PO Q12H RF: 0 tizanidine 2 mg tablet 2 mg PO BID PRN (Reason: muscle spasticity) Qty: 60 RF: 0
[2021-06-23 06:17] LABS: COVID-19 Test Negative (Negative)
[2021-06-23] MEDS: Ondansetron ODT 4 MG TAB.RAPDIS TRANSLINGU (06:34)
== END 2021-06-23 06:35 | disposition home or self-care (01) ==
PROVIDERS: Emergency Provider Emergency Medicine
DX: B34.9 Viral infection, unspecified (principal); Z20.822 Contact with and (suspected) exposure to COVID-19
CPT/HCPCS: 36415; 87635; 99283

== ENCOUNTER 2021-10-16 03:58 | Emergency (ER) | payer MEDICAID, SELFPAY ==
--- NOTE | ~2021-10-16 | XR_ITS ---
EXAMINATION: XR CHEST CLINICAL INFORMATION: Covid positive. COMPARISON: Chest radiograph 11/05/2019 TECHNIQUE: Frontal view of the chest was obtained. FINDINGS: Normal appearance of the cardiomediastinal structures. No effusions or pneumothoraces. Normal pattern of pulmonary vasculature. No focal pulmonary consolidation. XR/XR chest 1V IMPRESSION: *No acute cardiopulmonary abnormalities. No focal pulmonary consolidation.
[2021-10-16 04:19] VITALS: BMI 27.2
--- NOTE | 2021-10-16 04:47 | ED.URI ---
HPI - URI/Sore Throat General Chief Complaint: Upper Respiratory Symptoms Stated Complaint: Covid symptoms/ + on 10/04 Time Seen by Provider: 10/16/21 04:41 Source: patient Mode of arrival: ambulatory Limitations: no limitations History of Present Illness HPI Narrative: Patient vaccinated against COVID has not received a booster dose with history of asthma tested positive for COVID on 10/04. Since then patient is still complaining of cough congestion and not getting better received a dose of Decadron for few days. Also she had fever few days ago no nausea no vomiting no diarrhea she tested herself again on 10/14 was positive at home. Patient does have cough , mostly dry feel congested Related Data Home Medications Medication Instructions Recorded Confirmed acetaminophen 650 mg 650 mg PO Q12H 05/24/20 10/04/20 tablet,extended release (Tylenol 8 Hour) lisinopril 10 mg tablet 10 mg PO DAILY 05/24/20 10/04/20 tramadol 50 mg tablet 50 mg PO BID PRN 05/03/21 Previous Rx's Medication Instructions Recorded dicyclomine 20 mg tablet 20 mg PO QID PRN #20 tab 01/10/21 tizanidine 2 mg tablet 2 mg PO BID PRN #60 tab 05/28/21 acetaminophen 500 mg capsule 500 mg PO QID PRN #14 cap 06/23/21 ondansetron HCl 4 mg tablet 4 mg PO Q6H PRN #10 tab 06/23/21 (Zofran) omeprazole 20 mg capsule,delayed 20 mg PO DAILY #30 cap 09/16/21 release azithromycin 250 mg tablet 250 mg PO DAILY 4 Days #4 tab 10/16/21 (Zithromax) benzonatate 200 mg capsule 200 mg PO TID PRN #30 cap 10/16/21 dexamethasone 6 mg tablet 6 mg PO DAILY #6 tab 10/16/21 (Decadron) Allergies Allergy/AdvReac Type Severity Reaction Status Date / Time doxycycline Allergy Unknown Itching Verified 06/23/21 05:55 oxycodone Allergy Unknown Itching Verified 06/23/21 05:55 Tylox Allergy Unknown Itching Uncoded 06/23/21 05:55 Review of Systems Review of Systems: Yes all other systems are reviewed and are negative PMFSH Past Medical History Medical History Diverticulitis Surgical History History of colonoscopy Hx of endoscopy Family History Family History Father Alive and well Mother Hx of diabetes insipidus Social History Social History Household Members: Family, Children and Other Alcohol intake: current Alcohol intake frequency: a few times a month Substance Use Type: Marijuana Advance Directives: No Current occupational status: employed 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 Oriented X3. No acute distress. ENT: Pharynx normal. Oral Mucosa moist Neck: Normal inspection. Neck supple. CVS: Normal heart rate and rhythm. Pulses normal. Respiratory: No respiratory distress. Equal air entry bilateral, prolonged expiration no wheezing or rales Abdomen: Soft and nontender. Bowel sounds are present, no mass palpable, no CVA tenderness Skin: Skin warm and dry. Normal skin color. Normal skin turgor. Extremities: No lower extremity edema. No calf tenderness Neuro: Oriented X 3. MDM - URI/Sore Throat MDM Narrative Medical decision making narrative: Patient's chest x-ray negative for any infiltrate COVID still positive discharge patient home on Zithromax and Decadron Lab Data Attestation: I reviewed the patient's lab results. Labs: Lab Results 10/16/21 Range/Units 04:44 Influenza Type A (PCR) NEGATIVE (Negative) Influenza Type B (PCR) NEGATIVE (Negative) RSV RNA Qual (PCR) NEGATIVE (Negative) SARS-CoV-2 RNA (RT-PCR) POSITIVE A (Negative) Discharge Plan Discharge Clinical Impression: COVID-19, Bronchitis Patient Disposition: Home, Self-Care Instructions: Acute Bronchitis (ED), COVID-19 (Coronavirus Disease 2019) (ED) Additional Instructions: Take medication as prescribed Stay isolated until get better Prescriptions: New azithromycin [Zithromax] 250 mg tablet 250 mg PO DAILY 4 Days Qty: 4 0RF Rx Instructions: start on day 2 of therapy benzonatate 200 mg capsule 200 mg PO TID PRN (Reason: cough) Qty: 30 0RF dexamethasone [Decadron] 6 mg tablet 6 mg PO DAILY Qty: 6 0RF No Action omeprazole 20 mg capsule,delayed release(DR/EC) 20 mg PO DAILY Qty: 30 3RF dicyclomine 20 mg tablet 20 mg PO QID PRN (Reason: abdominal pain) Qty: 20 0RF ondansetron HCl [Zofran] 4 mg tablet 4 mg PO Q6H PRN (Reason: nausea and vomiting) Qty: 10 0RF acetaminophen 500 mg capsule 500 mg PO QID PRN (Reason: fever or pain) Qty: 14 0RF lisinopril 10 mg tablet 10 mg PO DAILY 0RF acetaminophen [Tylenol 8 Hour] 650 mg tablet extended release 650 mg PO Q12H 0RF Label Comments: Takes 2 tabs in the morning and 1 tablet in the evening. tizanidine 2 mg tablet 2 mg PO BID PRN (Reason: muscle spasticity) Qty: 60 0RF Rx Instructions: stop use of flexeril. start with 1/2 tab as medication can be sedating Stand Alone Forms: Work/School Release
[2021-10-16] MEDS: Azithromycin 500 MG TABLET PO (04:57)
[2021-10-16 05:27] LABS: Influenza A PCR NEGATIVE (Negative); Influenza B PCR NEGATIVE (Negative); Resp Syncy Virus RNA Qual PCR NEGATIVE (Negative); SARS COV2 PCR INHOUSE POSITIVE (Negative)
[2021-10-16 06:10] VITALS: BP 141/83; PULSE 75; RESP 18; O2SAT 99
[2021-10-16] MEDS: Benzonatate 100 MG CAPSULE 200 MG PO (06:34)
[2021-10-16] MEDS: dexAMETHasone 6 MG TABLET PO (06:35)
== END 2021-10-16 06:38 | disposition home or self-care (01) ==
PROVIDERS: Emergency Provider Internal Medicine; PCP Physician Assistant Medical
DX: U07.1 COVID-19 (principal); J40 Bronchitis, not specified as acute or chronic; J45.909 Unspecified asthma, uncomplicated
CPT/HCPCS: 0241U; 71045; 99283; J8540

== ENCOUNTER → 2021-12-31 09:33 | Outpatient (BNVA) | payer MEDICAID, SELFPAY | PROVIDERS: PCP Physician Assistant Medical; Visit Provider Physician Assistant | DX: M25.511 Pain in right shoulder (principal); M54.2 Cervicalgia; M54.12 Radiculopathy, cervical region; S16.1XXA Strain of muscle, fascia and tendon at neck level, initial encounter | CPT/HCPCS: 99212 ==

== ENCOUNTER → 2022-01-08 10:31 | Outpatient (BNVA) | payer MEDICAID, SELFPAY | PROVIDERS: PCP Physician Assistant Medical; Visit Provider Anesthesiology | DX: M54.2 Cervicalgia (principal); M54.12 Radiculopathy, cervical region; G35 Multiple sclerosis | CPT/HCPCS: 99212 ==

== ENCOUNTER 2022-02-11 10:41 | Outpatient (REF) | payer MEDICAID, SELFPAY ==
--- NOTE | ~2022-02-11 | XR_ITS ---
EXAMINATION: XR CERVICAL SPINE CLINICAL INFORMATION: Cervical radiculopathy at C5 COMPARISON: MR cervical spine 05/21/2021 TECHNIQUE: 6 views of the cervical spine, inclusive of flexion and extension views, were obtained. FINDINGS: Mild grade 1 anterolisthesis at C7-T1 and mild retrolisthesis at C5-C6, both unchanged between flexion and extension views. Atlantodens interval and C1-C2 alignment are maintained. No additional fixed or dynamic subluxation. No acute fracture or prevertebral soft tissue swelling. Straightening of the normal cervical lordosis. Disc degenerative changes at C5-C6 with moderate disc height loss, endplate sclerosis, and endplate osteophytes. Mild disc degenerative changes at C3-C4 and C4-C5 with preserved disc heights. Advanced facet arthrosis at C7-T1 on the right. Bilateral oblique views of the cervical spine remarkable for moderate right osseous neural foraminal stenosis at C5-C6 and milder neural foraminal narrowing at C3-C4 and C7-T1. On the left, moderate neural foraminal stenosis at C5-C6. XR/XR cervical spine w flex/ext IMPRESSION: 1. Mild retrolisthesis at C5-C6 and grade 1 anterolisthesis at C7-T1, unchanged between flexion and extension views. No dynamic subluxation. 2. No fracture. 3. Disc degenerative change most advanced at C5-C6. 4. Bilateral neural foraminal stenosis, as above and moderate at C5-C6 bilaterally.
== END 2022-02-11 10:42 | disposition home or self-care (01) ==
LOC: HO.XRAY 10:41
PROVIDERS: Visit Provider Psychiatry & Neurology Neurology
DX: M54.12 Radiculopathy, cervical region (principal)
CPT/HCPCS: 72052

== ENCOUNTER 2022-04-17 17:34 | Emergency (ER) | payer OTHER, MEDICAID, SELFPAY ==
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
--- NOTE | 2022-04-17 17:55 | ED_ITS ---
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 [Primary Care Provider] - 2 days <SONIA Mccoy - Last Filed: 04/17/22 19:13>
[2022-04-17 17:56] VITALS: BP 155/84; PULSE 89; RESP 16; TEMP 36.9; O2SAT 100
[2022-04-17 18:00] VITALS: BP 141/66; PULSE 95; O2SAT 98
[2022-04-17 18:43] LABS: Basophils Percent Auto 0.1 % (0-2); Hematocrit 36.2 % (37.0-47.0); Hemoglobin 12.1 g/dl (12.0-16.0); Imm Gran Abs Auto 0.03 X10*3/uL (0.00-0.03); Imm Gran Pct Auto 0.3 % (0.0-0.4); Lymphocytes Absolute Auto 1.5 X10*3/uL (1.2-4.9); Lymphocytes Percent Auto 16.2 % (20-40); MANUAL DIFF FLAG NO; Mean Corpuscular HGB Conc 33.4 g/dl (31.0-35.0); Mean Corpuscular Hemoglobin 30.6 pg (27.0-33.0); Mean Corpuscular Volume 91.6 fL (80.0-98.0); Mean Platelet Volume 10.1 fL (9.4-12.3); Monocytes Absolute Auto 0.7 X10*3/uL (0.1-1.2); Monocytes Percent Auto 7.4 % (2-11); Neutrophils Absolute Auto 7.2 x10*3/uL (2.0-8.3); Platelet Count 290 X10*3/uL (160-400); Red Blood Count 3.95 X10*6/uL (4.20-5.50); Red Cell Distribution Width 12.7 % (11.0-16.0); White Blood Count 9.5 X10*3/uL (4.8-10.8)
[2022-04-17 19:00] LABS: Alanine Aminotransferase 19 U/L (0-31); Albumin Level 4.8 g/dL (3.5-5.0); Alkaline Phosphatase 72 U/L (39-117); Anion Gap 18 (12-20); Aspartate Amino Transferase 24 U/L (5-31); Bilirubin Direct 0.2 mg/dL (0.0-0.5); Bilirubin Total 0.5 mg/dL (0.0-1.0); Blood Urea Nitrogen 25 mg/dL (9-16); Calcium 9.6 mg/dL (8.4-10.2); Carbon Dioxide 25 mmol/L (22-29); Chloride 104 mmol/L (96-108); Estimated Glomerular Filt Rate > 60; Glucose Random 116 mg/dL (60-115); Lipase 11 U/L (8-78); Potassium 5.1 mmol/L (3.3-5.1); Sodium 142 mmol/L (135-145)
[2022-04-17] MEDS: iohexoL 350 MG/ML 100 ML INFUS..BTL IV (19:36)
[2022-04-17 19:46] LABS: COVID-19 Test Negative (Negative)
[2022-04-17] MEDS: 0.9 % Sodium Chloride 1,000 ML 999 ML IV (19:48)
[2022-04-18] MEDS: Ketorolac Tromethamine 30 MG/ML VIAL IVPUSH (00:26)
== END 2022-04-18 00:32 | disposition home or self-care (01) ==
PROVIDERS: Physician Assistant; Emergency Provider Internal Medicine; PCP Physician Assistant Medical
DX: S20.213A Contusion of bilateral front wall of thorax, initial encounter (principal); S89.91XA Unspecified injury of right lower leg, initial encounter; M54.2 Cervicalgia; R51.9 Headache, unspecified; M54.6 Pain in thoracic spine; M25.562 Pain in left knee; M25.561 Pain in right knee; R10.9 Unspecified abdominal pain; V43.52XA Car driver injured in collision with other type car in traffic accident, initial encounter; Y93.9 Activity, unspecified; Y92.410 Unspecified street and highway as the place of occurrence of the external cause; Y99.9 Unspecified external cause status; Z20.822 Contact with and (suspected) exposure to COVID-19; Z79.899 Other long term (current) drug therapy
CPT/HCPCS: 70450; 71260; 72125; 73562; 73590; 74177; 80048; 80076; 83690; 85025; 85610; 87635; 96361; 96374; 99283; 99284; J1885; Q9967

== ENCOUNTER 2022-06-26 10:00 | Outpatient (RCR) | payer OTHER, MEDICAID, SELFPAY | END 2022-07-01 13:58 | disposition home or self-care (01) | LOC: HO.PT 10:00 | PROVIDERS: PCP Physician Assistant Medical; Visit Provider Nurse Practitioner Family | DX: M54.2 Cervicalgia (principal) | CPT/HCPCS: 97110; 97140; 97162 ==

== ENCOUNTER 2022-07-11 05:05 | Emergency (ER) | payer MEDICAID, SELFPAY ==
--- NOTE | ~2022-07-11 | XR_ITS ---
EXAMINATION: XR CHEST CLINICAL INFORMATION: Acute left-sided pain COMPARISON: 10/16/2021 TECHNIQUE: Frontal view of the chest was obtained. FINDINGS: Lungs are well-inflated and clear. Trachea is midline in position. No interstitial disease, consolidation or mass. No pleural effusion or pneumothorax. Cardiac silhouette and pulmonary vessels are normal in size. The mediastinum and curry have normal contour. The visualized bones, and upper abdomen, are unremarkable. XR/XR chest 1V IMPRESSION: No acute cardiopulmonary abnormality. No evidence of pneumonia, pleural effusion or pneumothorax.
--- NOTE | ~2022-07-11 | CT_ITS ---
EXAMINATION: CT ANGIOGRAM OF THE CHEST WITH AND WITHOUT CONTRAST (CT PULMONARY ANGIOGRAM FOR PE) CLINICAL INFORMATION: Acute left pleuritic chest pain COMPARISON: 04/17/2022 TECHNIQUE: Prior to contrast administration, noncontrast localization images were obtained. Subsequently, multidetector volumetric imaging was performed from the thoracic inlet to below the diaphragms following the administration of 65 mL Omnipaque 350 intravenous contrast. No contrast reaction reported Sagittal, coronal, and MIP oblique sagittal reformatted images were obtained on the CT workstation, uploaded to PACS, and reviewed. This CT examination was performed using dose optimization techniques as appropriate, variously including the following: *Automated exposure control *Adjustment of mA and/or kV according to patient size (this includes techniques or standardized protocols for targeted exams where dose is matched to indication/reason for exam; i.e. extremities or head) *Use of iterative reconstruction technique Total exam dose-length product 262 mGy-cm FINDINGS: QUALITY OF STUDY/CONTRAST BOLUS: Satisfactory. PULMONARY ARTERIES: No central or segmental pulmonary emboli. THORACIC AORTA: No aneurysm or dissection. LUNG: No focal consolidation, nodules or masses. PLEURA: No pleural effusion or pneumothorax. MEDIASTINUM: Normal heart size. No pericardial effusion. No hilar or mediastinal lymphadenopathy. No evidence of septal bowing or right heart strain. CORONARY ARTERY CALCIFICATION: None visualized on this study. CHEST WALL/AXILLA: No axillary or internal mammary lymphadenopathy. OSSEOUS STRUCTURES: No acute or suspicious osseous abnormality. UPPER ABDOMEN: Unremarkable. No reflux of contrast into the hepatic veins to suggest elevated right heart pressures. CT/CT angio chest PE protocol IMPRESSION: No pulmonary embolus seen. No etiology for pleuritic chest pain identified. VTE: negative
[2022-07-11 05:09] VITALS: BP 143/92; PULSE 99; RESP 16; TEMP 36.4; O2SAT 99; BMI 28.8
[2022-07-11 05:48] LABS: MANUAL DIFF FLAG NO
[2022-07-11 05:49] LABS: Basophils Percent Auto 0.9 % (0-2); Eosinophils Absolute Auto 0.1 X10*3/uL (0.0-0.4); Eosinophils Percent Auto 3.2 % (0-4); Hematocrit 38.2 % (37.0-47.0); Hemoglobin 12.9 g/dl (12.0-16.0); Imm Gran Abs Auto 0.01 X10*3/uL (0.00-0.03); Imm Gran Pct Auto 0.2 % (0.0-0.4); Lymphocytes Absolute Auto 1.8 X10*3/uL (1.2-4.9); Lymphocytes Percent Auto 41.4 % (20-40); Mean Corpuscular HGB Conc 33.8 g/dl (31.0-35.0); Mean Corpuscular Hemoglobin 30.6 pg (27.0-33.0); Mean Corpuscular Volume 90.7 fL (80.0-98.0); Mean Platelet Volume 9.7 fL (9.4-12.3); Monocytes Absolute Auto 0.4 X10*3/uL (0.1-1.2); Neutrophils Percent Auto 45.3 % (45-73); Platelet Count 253 X10*3/uL (160-400); Red Blood Count 4.21 X10*6/uL (4.20-5.50); Red Cell Distribution Width 12.4 % (11.0-16.0); White Blood Count 4.3 X10*3/uL (4.8-10.8)
[2022-07-11 06:18] LABS: Anion Gap 14 (12-20); Blood Urea Nitrogen 10 mg/dL (9-16); Carbon Dioxide 23 mmol/L (22-29); Chloride 107 mmol/L (96-108); Creatinine Clr Calc Pharmacy 85.1; Estimated Glomerular Filt Rate > 60; Glucose Random 92 mg/dL (60-115); Potassium 4.1 mmol/L (3.3-5.1); Sodium 140 mmol/L (135-145)
[2022-07-11 06:24] LABS: Troponin-I High Sensitivity < 3.5 ng/L (<3.5-17.0)
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
--- NOTE | 2022-07-11 07:15 | ECG_ITS ---
Test Reason : CHESTPAIN Blood Pressure : / mmHG Vent. Rate : 085 BPM Atrial Rate : 085 BPM P-R Int : 160 ms QRS Dur : 074 ms QT Int : 376 ms P-R-T Axes : 081 050 064 degrees QTc Int : 447 ms Normal sinus rhythm Normal ECG When compared with ECG of 23-JUN-2018 09:36, No significant change was found Referred By: Garrick Florian Electronically Signed By:BLAKE CORONADO MD
[2022-07-11 07:35] VITALS: BP 150/91; PULSE 86; RESP 16; TEMP 36.8; O2SAT 100
[2022-07-11] MEDS: Aspirin 81 MG TAB.CHEW 324 MG PO (07:58)
[2022-07-11] MEDS: Morphine Sulfate 4 MG/ML CARTRIDGE IVPUSH (07:58)
[2022-07-11 08:17] LABS: Troponin-I High Sensitivity 3.4 ng/L (<3.5-17.0)
[2022-07-11] MEDS: iohexoL 350 MG/ML 100 ML INFUS..BTL 65 ML IV (08:19)
[2022-07-11 09:35] VITALS: BP 140/92; PULSE 79; RESP 12; TEMP 36.8; O2SAT 99
[2022-07-11 09:50] LABS: Troponin-I High Sensitivity 3.7 ng/L (<3.5-17.0)
== END 2022-07-11 10:58 | disposition home or self-care (01) ==
PROVIDERS: Emergency Provider Emergency Medicine
DX: R07.9 Chest pain, unspecified (principal); R07.89 Other chest pain; I10 Essential (primary) hypertension
CPT/HCPCS: 36415; 71045; 71275; 80048; 84484; 85025; 93005; 96374; 99284; J2270; Q9967

== ENCOUNTER 2022-08-21 11:11 | Outpatient (REF) | payer MEDICAID, SELFPAY ==
--- NOTE | ~2022-08-21 | XR_ITS ---
EXAMINATION: XR HAND, RIGHT CLINICAL INFORMATION: Pain right hand. COMPARISON: None TECHNIQUE: PA, lateral, and oblique views of the right hand. FINDINGS: The bones and soft tissues are normal. No fracture. Alignment is anatomic. Joint spaces are maintained. No erosions or soft tissue calcifications. XR/XR hand RT min 3V IMPRESSION: Normal right hand.
[2022-08-21 13:36] LABS: Erythrocyte Sedimentation Rate 27 MM/HR (0-20)
[2022-08-21 13:59] LABS: C Reactive Protein < 0.10 mg/dL (< or = 0.50)
[2022-08-21 14:05] LABS: Rheumatoid Factor < 13.0 IU/mL (<15.0)
[2022-08-23 15:53] LABS: Anti Nuclear Antibody Screen NEGATIVE (NEGATIVE)
== END 2022-08-21 11:12 | disposition home or self-care (01) ==
LOC: HO.XRAY 11:11
PROVIDERS: PCP Physician Assistant Medical; Visit Provider Physician Assistant Medical
DX: M79.641 Pain in right hand (principal)
CPT/HCPCS: 36415; 73130; 85652; 86038; 86039; 86140; 86431

== ENCOUNTER 2022-09-30 09:27 | Outpatient (REF) | payer OTHER, SELFPAY ==
--- NOTE | ~2022-09-30 | XR_ITS ---
EXAMINATION: XR HAND, RIGHT CLINICAL INFORMATION: Pain. COMPARISON: None available. TECHNIQUE: PA, lateral, and oblique views of the right hand. FINDINGS: The bones and soft tissues are normal. No fracture. Alignment is anatomic. Joint spaces are maintained. No erosions or soft tissue calcifications. XR/XR hand RT min 3V IMPRESSION: Normal right hand.
== END 2022-09-30 09:28 | disposition home or self-care (01) ==
LOC: HO.HOSX 09:27
PROVIDERS: Visit Provider Orthopaedic Surgery
DX: M79.641 Pain in right hand (principal); M25.641 Stiffness of right hand, not elsewhere classified; G56.03 Carpal tunnel syndrome, bilateral upper limbs; M67.40 Ganglion, unspecified site
CPT/HCPCS: 73130

== ENCOUNTER → 2022-10-15 14:29 | Outpatient (BNVA) | payer OTHER, MEDICAID, SELFPAY | PROVIDERS: PCP Physician Assistant Medical; Visit Provider Orthopaedic Surgery | DX: Z13.89 Encounter for screening for other disorder (principal) ==

== ENCOUNTER 2022-10-28 01:58 | Emergency (ER) | payer OTHER, SELFPAY ==
--- NOTE | ~2022-10-28 | XR_ITS ---
EXAMINATION: XR HAND, RIGHT CLINICAL INFORMATION: Pain, old fracture COMPARISON: 09/30/2022 TECHNIQUE: PA, lateral, and oblique views of the right hand. FINDINGS: Osseous alignment is anatomic. No acute fracture is seen. No significant focal soft tissue abnormality identified. XR/XR hand RT 2V IMPRESSION: No acute findings identified.
[2022-10-28 01:59] VITALS: BP 150/92; PULSE 75; RESP 18; TEMP 36.6; O2SAT 98; BMI 22.1
--- NOTE | 2022-10-28 02:31 | PC.NURSE ---
Pt aox4 resting at the bedside. Reports R hand pain for several months. Reports following physical therapy with no improvement. Unable to make a fist, able to close the hand with difficulty/pain. Pending x-ray result of R hand and physician julissa.
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
[2022-10-28 03:29] VITALS: BP 171/77; PULSE 62; RESP 12; O2SAT 97
--- NOTE | 2022-10-28 03:30 | PC.NURSE ---
Pt aox4. Discharge instructions reviewed with pt. Pt verbalizes understanding. Ambulatory with steady gait at discharge.
== END 2022-10-28 03:31 | disposition home or self-care (01) ==
PROVIDERS: Emergency Provider Emergency Medicine Emergency Medical Services
DX: M79.641 Pain in right hand (principal); M79.601 Pain in right arm; Z79.899 Other long term (current) drug therapy; F12.90 Cannabis use, unspecified, uncomplicated
CPT/HCPCS: 73120; 99283

== ENCOUNTER → 2022-11-18 08:37 | Outpatient (BNVA) | payer OTHER, MEDICAID, SELFPAY | PROVIDERS: Visit Provider Orthopaedic Surgery ==

== ENCOUNTER 2022-11-27 11:30 | Outpatient (RCR) | payer OTHER, MEDICAID, SELFPAY ==
--- NOTE | 2022-09-29 11:48 | MHC.OT.DC ---
[address] [phone] F: [phone] Occupational Therapy Discharge Note Patient Name: María Carranza Provider: Lexy Bergman Diagnosis: Right hand pain Date of Surgery: Date of Evaluation: 07/01/22 Date of Discharge: 09/18/22 Treatments to Date: 10 Cancellations to Date: 3 No Shows to Date: 6 Discharge Status: Recommend MD Follow-up Discharge Summary: High pain, not on any pains meds currently, x-ray came back (-) for osseous changes. Pt with good follow through w/ ice massage and gentle range as able. Primary complaint of pain from right middle finger to shoulder No further progress made w/ therapy and now pt trying to kaycee tape w/ ring finger w/ some relief for everyday activity participation. Pt no showed last two scheduled appointments Electronically Signed By: Toya Raya OT CHT CLT Reviewed/agree with student documentation: Therapist: Please Sign and return to therapist, thank you for your referral.
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
== END 2023-11-17 14:12 ==
LOC: HO.OT 11:30
PROVIDERS: Absent Provider Orthopaedic Surgery; PCP Physician Assistant Medical; Visit Provider Nurse Practitioner
DX: M79.641 Pain in right hand (principal)
CPT/HCPCS: 29130; 97035; 97110; 97140; 97166; 97760

== ENCOUNTER 2022-12-11 07:01 | Day surgery (SDC) | payer MEDICAID, SELFPAY ==
[2022-12-05 19:34] VITALS: BMI 28.1
--- NOTE | 2022-12-09 14:52 | HO.ANESPROP2 ---
Documented by User: Meredith Mae NP 12/09/22 14:53 HPI - Anesthesia Eval Consult details Narrative: 52yo F for Right Carpal Tunnel Release, Right Middle finger Trigger Release,Middle finger manipulation of joints PMFSH Active Problems Active Problems: All Active Problems (Updated 12/08/22 @ 11:27 by Cecile Ling RN) GERD without esophagitis (Acute) Dysphagia, pharyngoesophageal phase (Acute) Helicobacter pylori gastritis (Acute) Chronic constipation (Acute) Vitamin B12 deficiency (Acute) Colon cancer screening (Acute) Hypertension (Acute) Asthma (Acute) Migraine headache (Acute) Vitamin D deficiency (Acute) Major depression (Acute) Generalized abdominal pain (Acute) Cervical radiculopathy (Acute) Strain of cervical portion of right trapezius muscle (Acute) Cervicalgia (Acute) COVID-19 (Acute) Multiple sclerosis (Acute) Stiffness of right hand joint (Acute) Right hand pain (Acute) Carpal tunnel syndrome of right wrist (Acute) Carpal tunnel syndrome of left wrist (Acute) Past Medical History Medical History Anxiety Asthma Diverticulitis GERD (gastroesophageal reflux disease) Hypertension Multiple sclerosis Family History Family History Father Alive and well Mother Hx of diabetes insipidus Surgical History Surgical History History of colonoscopy Hx of endoscopy Social History Social History Household Members: Family, Children and Other Alcohol intake: current Alcohol intake frequency: does not drink Patient Tobacco Use Status: Never used Tobacco Use of substances other than those prescribed or required for medical reasons: Yes Substance Use Type: Marijuana Substance Use Frequency: Daily Are you DNR?: No Advance Directives: No Advance Directives Information Provided: Yes Advance Directives on File: No Recently lost weight without trying: No Nutrition Risks: No Nutritional Risk Patient : No Current occupational status: employed 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 Allergies Allergy/AdvReac Type Severity Reaction Status Date / Time doxycycline Allergy Unknown Itching Verified 12/08/22 11:36 oxycodone Allergy Unknown Itching Verified 12/08/22 11:36 Tylox Allergy Unknown Itching Uncoded 12/08/22 11:36 Home Medications Medication Instructions Recorded Confirmed Last Taken Type lisinopril 10 mg tablet 10 mg PO DAILY 05/24/20 12/05/22 Unknown History albuterol sulfate 2.5 mg/3 mL 1 mg inhalation Q6H PRN Shortness 12/31/21 12/05/22 Unknown History (0.083 %) solution for nebulization Of Breath loratadine 10 mg tablet 10 mg PO DAILY PRN Allergy Symptoms 12/31/21 12/05/22 Unknown History duloxetine 30 mg capsule,delayed 30 mg PO DAILY 09/30/22 12/05/22 Unknown History release Exam Exam Date and Time: December 09, 2022 1452 Height,Weight and Vital Signs: Height 4 ft 11 in Weight 63.049 kg Pertinent Lab Results Pertinent Lab Results: Laboratory Tests 07/11/22 07/11/22 05:42 05:42 WBC 4.3 L Hgb 12.9 Hct 38.2 Plt Count 253 Sodium 140 Potassium 4.1 Chloride 107 Carbon Dioxide 23 BUN 10 Creatinine 0.64 Narrative Narrative: EKG 06/2022 Vent. Rate : 085 BPM ? ? Atrial Rate : 085 BPM ?? P-R Int : 160 ms? QRS Dur : 074 ms ? ? QT Int : 376 ms ? ? ? P-R-T Axes : 081 050 064 degrees ?? QTc Int : 447 ms ? Normal sinus rhythm Normal ECG When compared with ECG of 23-JUN-2018 09:36, No significant change was found Assessment and Plan Assessment Anesthesia Assessment: Chart Reviewed Documented by User: Ritu Pascal MD 12/11/22 08:52 [facility] Past Medical History Medical History Anxiety Asthma Diverticulitis GERD (gastroesophageal reflux disease) Hypertension Multiple sclerosis Family History Family History Father Alive and well Mother Hx of diabetes insipidus Family history of problems with anesthesia: No Surgical History Surgical History History of colonoscopy Hx of endoscopy History of Problems with Anesthesia: No Social History Social History Household Members: Family, Children and Other Alcohol intake: current Alcohol intake frequency: does not drink Patient Tobacco Use Status: Never used Tobacco Use of substances other than those prescribed or required for medical reasons: Yes Substance Use Type: Marijuana Substance Use Frequency: Daily Are you DNR?: No Advance Directives: No Advance Directives Information Provided: Yes Advance Directives on File: No Recently lost weight without trying: No Nutrition Risks: No Nutritional Risk Patient : No Current occupational status: employed 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 Allergies Allergy/AdvReac Type Severity Reaction Status Date / Time doxycycline Allergy Unknown Itching Verified 12/08/22 11:36 oxycodone Allergy Unknown Itching Verified 12/08/22 11:36 Tylox Allergy Unknown Itching Uncoded 12/08/22 11:36 Home Medications Medication Instructions Recorded Confirmed Last Taken Type lisinopril 10 mg tablet 10 mg PO DAILY 05/24/20 12/05/22 Unknown History albuterol sulfate 2.5 mg/3 mL 1 mg inhalation Q6H PRN Shortness 12/31/21 12/05/22 Unknown History (0.083 %) solution for nebulization Of Breath loratadine 10 mg tablet 10 mg PO DAILY PRN Allergy Symptoms 12/31/21 12/05/22 Unknown History duloxetine 30 mg capsule,delayed 30 mg PO DAILY 09/30/22 12/05/22 Unknown History release Exam Airway Mallampati Class: II TM Dist: >3cm Neck ROM: Full Partial: Upper Heart: rrr Lungs: cta Assessment and Plan Assessment Anesthesia Assessment: Anesthesia Plan Discussed and Smoking Cess. Discussed Final Anesthetic Review Family History of Problems with Anesthesia: No History of Problems with Anesthesia: No NPO: Yes ASA Class: III Final Preanesthetic Review: No Changes in Pt Med Stat, Meds/Allgs Chart Reviewed, Consent Obtained/Reviewed and Anes Risks/Benef Reviewed Patient Risk: Intermediate Procedure Risk: Low Anesthetic Plan Anesthetic Plan: GA Disposition: Standard PACU
[2022-12-11 07:32] VITALS: BP 125/101; PULSE 68; RESP 16; TEMP 36.9; O2SAT 99
[2022-12-11] MEDS: Lactated Ringers 1,000 ML 100 ML IVCONT (07:49)
[2022-12-11 10:05] VITALS: BP 145/86; PULSE 68; RESP 12; TEMP 36.1; O2SAT 96
[2022-12-11] MEDS: oxyCODONE HCl Immed Release 5 MG TABLET PO (10:08)
[2022-12-11] MEDS: Acetaminophen 1,000 MG/100 ML PIGGYBACK 400 MG IV (10:08)
[2022-12-11 10:10] VITALS: BP 144/101; PULSE 66; RESP 16; O2SAT 96
[2022-12-11 10:15] VITALS: BP 134/80; PULSE 66; RESP 14; O2SAT 96
--- NOTE | 2022-12-11 10:17 | P.OP_ITS ---
Operative Note Operative Note Date of Service: 12/11/22 Narrative: Operative Note Narrative: Preop diagnosis: 1. Right carpal tunnel syndrome 2. Right middle finger trigger finger 3. Right middle finger PIP and MCP joint stiffness Postop diagnosis: Same Procedure: 1. Right carpal tunnel release 2. Right middle finger trigger release 3. Right middle finger PIP and MCP joints closed manipulations under anesthesia Surgeon: Maribel Squires MD Anesthesia: General Anesthesia [plus regional block] Findings: no locking or catching after A1 mohan release. Thickened transverse carpal ligament. Before leaving the operating room I was able to bring all of the fingers including the middle finger to a fully closed fist and then back into full extension. The PIP joint flexion contracture was brought out to 0 degrees. Implants: None Tourniquet time: 12 minutes EBL: 5.0 ml Specimen: none Drains: None Complications: None Disposition: Brought to the recovery room in stable condition Plan: Follow-up in 10-14 days for wound check, suture removal and to check pathology early or new referral to OT hand therapy to maintain middle finger range of motion. Indications: The patient is a [age] year old woman with right carpal t unnel syndrome, right middle finger trigger finger, and stiffness of the right middle finger a PIP and MCP joints that has been resistant to non operative measures. . The risks and benefits of operative treatment, including but not limited to risk of damage to blood vessels, nerves, tendons, infection, recurrence, persistent pain or numbness, incomplete resolution of preoperative symptoms, or need for further surgery were discussed with the patient and they wished to proceed with surgery. Procedure: Once consent was obtained patient was brought back to the operating suite and placed in the operating table in a supine position. . Perioperative antibiotics and anesthesia was administered by the anesthesia team. A tourniquet was applied to the proximal aspect of the Right upper extremity and the limb was prepped and draped in a standard surgical fashion. The limb was elevated exsanguinated with Esmarch bandage and the tourniquet inflated to 250 mm of mercury for a total tourniquet time of 12 minutes. I 1st performed a gentle closed manipulation of the right middle finger PIP and MCP joints. She had an approximately 20 degree PIP joint flexion contracture, and initially was only able to actively bring her middle finger to about 2-3 cm from her palm in preop hold. Gentle closed manipulation was performed on the right middle finger PIP joint and the MCP joints. after closed manipulation was able to bring the middle finger into full extension, thus resolving the PIP joint flexion contracture, and I was also able to bring the finger to a fully closed fist improving the MCP joint flexion. A 2.0 cm longitudinal incision was made centered over the right carpal tunnel. The incision was made through the skin to the subcutaneous tissues using a #15 blade. Dissection was made down to the level of the transverse carpal ligament with care being taken to protect the palmar cutaneous nerve. Once the transverse carpal ligament was clearly visualized, a longitudinal incision was made in the transverse carpal ligament 1st using a #15 blade, then using tenotomy scissors under direct visualization. Care was taken to look for and protect the motor branch of the median nerve when seen in this area. Once satisfied with our carpal tunnel release the wound was irrigated with normal saline. A 1.5 cm oblique incision was made centered over the A1 mohan of the right middle finger . The incision was made through the skin to the subcutaneous tissues using a #15 blade. Careful dissection was made down to the level of the A1 mohan using tenotomy scissors, with care being taken to protect the nearby neurovascular structures. A longitudinal incision was made in the A1 mohan 1st using a #15 blade, then using tenotomy scissors under direct visualization. The A1 mohan was noted to be thickened. Following our A1 mohan release, we no longer saw any locking or catching of the digit with flexion and extension. At this point the tourniquet was deflated and hemostasis obtained with a brief period of local pressure . The Wounds were copiously irrigated with normal saline. The skin edges were reapproximated with 5-0 nylon suture. The wound was infiltrated with some happens some plain ropivacaine for postop pain control and a sterile dressing was applied. The patient appears to have tolerated the procedure well and with no complications. All digits were well vascularized conclusion of the case.
--- NOTE | 2022-12-11 10:17 | MHC.SHP ---
Pre-Procedural Eval Section A Date of Service: 12/11/22 The patient is an INPATIENT: No Changes since office visit: No Cold of Flu in the past 2 weeks, No New Medical Problems, No Changes in Medication and No Patient answered all questions The History & Physical has been completed within 30 days and I have reviewed it.: Yes Section B Chief Complaint: Stiffness of right hand,carpal tunnel release Allergies: Allergies Allergy/AdvReac Type Severity Reaction Status Date / Time doxycycline Allergy Unknown Itching Verified 12/08/22 11:36 oxycodone Allergy Unknown Itching Verified 12/08/22 11:36 Tylox Allergy Unknown Itching Uncoded 12/08/22 11:36 Plan I have reviewed the history and physical and performed a pertinent physical examination on my patient. No changes have occurred unless specified. Time Spent With Patient Time: Total time managing care of this patient today ____ minutes.
[2022-12-11 10:20] VITALS: BP 141/83; PULSE 62; RESP 14; O2SAT 98
[2022-12-11 10:35] VITALS: BP 139/79; PULSE 60; RESP 16; TEMP 36.1; O2SAT 98
== END 2022-12-11 11:01 | disposition home or self-care (01) ==
PROVIDERS: PCP Physician Assistant Medical; Visit Provider Orthopaedic Surgery
PROC: (CPT 64721; principal; 2022-12-11 08:40)
PROC: (CPT 26055; 2022-12-11 08:40)
DX: G56.01 Carpal tunnel syndrome, right upper limb (principal); M65.331 Trigger finger, right middle finger; M25.641 Stiffness of right hand, not elsewhere classified; M79.641 Pain in right hand; I10 Essential (primary) hypertension; G35 Multiple sclerosis; J45.909 Unspecified asthma, uncomplicated; Z79.899 Other long term (current) drug therapy; Z88.1 Allergy status to other antibiotic agents; Z88.8 Allergy status to other drugs, medicaments and biological substances
CPT/HCPCS: 64721; 26055; 26340 ×2; J0131; J1100; J2250; J2405; J2795; J3010

== ENCOUNTER → 2022-12-24 15:12 | Outpatient (BNVA) | payer OTHER, MEDICAID, SELFPAY | PROVIDERS: Visit Provider Orthopaedic Surgery ==

== ENCOUNTER 2023-01-15 07:48 | Day surgery (SDC) | payer OTHER, SELFPAY ==
--- NOTE | 2023-01-15 07:51 | W.PM.OPN ---
Operative Note Operative Note Date of Service: 01/15/23 Narrative: Preop diagnosis: 1. left Carpal tunnel syndrome Postop diagnosis: same Procedure: 1. left Carpal tunnel release Surgeon: Maribel Squires MD Anesthesia: local block using 1% lidocaine with epinephrine Findings: Thickened transverse carpal ligament. EBL: Less than 5 mL Specimens: None Complications: None Disposition: Brought to recovery room in stable condition Plan: Follow-up for 10-14 days for wound check and suture removal Indications: The patient is 52 years old, with left carpal tunnel syndrome that has been unresponsive to nonoperative management. The risks and benefits of operative treatment including but not limited to risk of damage to blood vessels, nerves, tendons, infection, persistent pain, persistent symptoms, or possible need for additional surgery were discussed with the patient and the patient wishes to proceed with surgery. Procedure: Once consent was obtained a local block was performed using a combination of 1% lidocaine with epinephrine. The patient was then brought back to the operating suite and placed on the operative table in supine position. The left upper extremity was prepped and draped in a standard surgical fashion. Once assured that we had a good block, a 2.0 cm longitudinal incision was made centered over the carpal tunnel. The incision was made through the skin to the subcutaneous tissues using a #15 blade. Dissection was made down to the level of the transverse carpal ligament with care being taken to protect the palmar cutaneous nerve. Once the transverse carpal ligament was clearly visualized, a longitudinal incision was made in the transverse carpal ligament 1st using a #15 blade, then using tenotomy scissors under direct visualization. Care was taken to look for and protect the motor branch of the median nerve when seen in this area. Once satisfied with our carpal tunnel release the wound was copiously irrigated with normal saline and hemostasis was obtained with a brief period of local pressure. The skin edges were reapproximated with some 5.0 nylon suture material and a sterile dressing was applied. The patient appears to have tolerated the procedure well and with no complications. All digits were well vascularized at the conclusion of the case.
[2023-01-15 08:14] VITALS: BMI 23.1
[2023-01-15 09:49] VITALS: BP 150/88; PULSE 67; RESP 16; O2SAT 100
== END 2023-01-15 10:12 | disposition home or self-care (01) ==
PROVIDERS: PCP Physician Assistant Medical; Visit Provider Orthopaedic Surgery
PROC: (CPT 64721; principal; 2023-01-15 08:40)
DX: G56.02 Carpal tunnel syndrome, left upper limb (principal); R20.0 Anesthesia of skin; I10 Essential (primary) hypertension; G35 Multiple sclerosis; J45.909 Unspecified asthma, uncomplicated; F12.90 Cannabis use, unspecified, uncomplicated; Z88.1 Allergy status to other antibiotic agents; Z88.8 Allergy status to other drugs, medicaments and biological substances
CPT/HCPCS: 64721; J0171

== ENCOUNTER → 2023-01-15 07:48 | Outpatient (BNV) | payer OTHER, SELFPAY | PROVIDERS: PCP Physician Assistant Medical; Visit Provider Orthopaedic Surgery | DX: G56.02 Carpal tunnel syndrome, left upper limb (principal) | CPT/HCPCS: 64721 ==

== ENCOUNTER 2023-01-28 11:35 | Outpatient (AMB) | payer OTHER, MEDICAID, SELFPAY ==
[2023-01-28 11:44] VITALS: BMI 23.0
--- NOTE | 2023-01-28 11:44 | MHC.OFFVIS ---
Intake Vital Signs 01/28/23 11:44 Height 5 ft 4 in Weight 134 lb BMI 23.0 Intake Visit Reasons: PO LT CTR 01/15/23AR Intake Note: María a 52 year old right hand dominant female who presents today for a post operative left CTR on 01/15/23 AR. Patient reports pain and tenderness near incision. Her pain will radiate into her forearm. Her numbness and tingling has subsided. She states continues to have swelling her in right hand and pain in her middle finger. She is not able to make a fully closed fist. Patient continues working with OT. Allergies doxycycline Allergy (Unknown, Verified 01/28/23 11:47) Itching oxycodone Allergy (Unknown, Verified 01/28/23 11:47) Itching Tylox Allergy (Unknown, Uncoded 01/28/23 11:47) Itching HPI PO LT CTR 01/15/23AR HPI Details 52-year-old female who returns to the office today for post-op left CTR, 01/15/[address] Squires. She states she has pain and tenderness at the incision site which radiates into her forearm. She also reports her numbness and tingling has subsided. She continues to work with occupational therapy as instructed. She also c/o swelling in her right hand and pain in her middle finger which makes her unable to make a fully closed fist. 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 Sutures are intact. She has trace swelling. No erythema no drainage. Full sensation. Assessment & Plan Assessment & Plan (1) Carpal tunnel syndrome of left wrist: Code(s): G56.02 - Carpal tunnel syndrome, left upper limb Plan Sutures removed today, steri strips applied. She will continue to work on some scar massage and some ROM exercises. She is also going to physical therapy for her right wrist s/p carpal tunnel and trigger release with Dr. Squires approximately 6 weeks ago. She is still having difficulty with full flexion of her middle finger and it does have some swelling. I am going to send her a prescription of Celebrex to the pharmacy to take twice a day for 2 weeks and then once a day to see if this helps with her swelling. I did recommend that she see Dr. Squires in 6 weeks for another follow-up on the right hand. Medications: New celecoxib (Celebrex) 200 mg PO BID 60 caps 3RF 30 days Patient Instructions: Scribed for Perla Orozco PA-C, by Bhavik Fam medical assistant dermatology, on 01/28/2023 at 11:30 AM EST. I, Perla Orozco PA-C, have personally reviewed and agree with the information entered by the scribe. Coding Level of Care Code Global (65553) Diagnoses Carpal tunnel syndrome of left wrist G56.02
== END 2023-01-28 12:02 | disposition home or self-care (01) ==
PROVIDERS: PCP Physician Assistant Medical; Visit Provider Physician Assistant
DX: G56.02 Carpal tunnel syndrome, left upper limb (principal)
CPT/HCPCS: 99024

== ENCOUNTER → 2023-01-28 11:35 | Outpatient (BNVA) | payer OTHER, MEDICAID, SELFPAY | PROVIDERS: PCP Physician Assistant Medical; Visit Provider Physician Assistant ==

== ENCOUNTER 2023-02-17 11:00 | Outpatient (RCR) | payer OTHER, SELFPAY ==
--- NOTE | 2023-02-17 12:06 | MHC.OT.DC ---
[address] [phone] F: [phone] Occupational Therapy Discharge Note Patient Name: María Carranza Provider: Maribel Squires Diagnosis: Right hand CTR Right middle finger trigger release Date of Surgery: 12/11/22 Date of Evaluation: 01/21/23 Date of Discharge: 02/17/23 Treatments to Date: 4 Cancellations to Date: 2 No Shows to Date: Discharge Status: Improved Function Independent with HEP Discharge Summary: Pt seen 1 x a week due to pt request ROM on right WNL last appt, middle finger stiff today with small superficial laceration on middle phalanx. Right hand sensation improved. Diminished light touch bilaterally. Pt also reports bilateral foot paresthesia. Bilateral manager package strength low. Pt reports not doing light hand strengthening due to pain. I anticipated con't slow improvement with pt HEP Electronically Signed By: Toya Raya OT CHT CLT Reviewed/agree with student documentation: Therapist: Please Sign and return to therapist, thank you for your referral.
== END 2023-02-17 12:06 | disposition home or self-care (01) ==
LOC: HO.OT 11:00
PROVIDERS: PCP Physician Assistant Medical; Visit Provider Orthopaedic Surgery
DX: M25.641 Stiffness of right hand, not elsewhere classified (principal)
CPT/HCPCS: 97110; 97167; 97530

== ENCOUNTER 2023-03-11 12:30 | Outpatient (AMB) | payer MEDICAID, SELFPAY ==
--- NOTE | 2023-03-11 12:43 | A.OFFVIS_ITS ---
Intake Vital Signs 03/11/23 13:33 Height 5 ft 4 in Weight 134 lb BMI 23.0 Intake Visit Reasons: PO-R hand S/P CTS w/ Trigger release MF Intake Note: María a 52 year old female who presents today for a follow up of right and left hand s/p CTR. Patient reports pain and stiffness in bilateral hand with her right hand being the worse. Constant pain that is currently 7 out of 10. Her pain increases with pinching or gripping items, affection AODL such as brushing teeth and putting on clothes. Continues to do at home exercises. Denies injury, numbness or tingling. Allergies doxycycline Allergy (Unknown, Verified 01/28/23 11:47) Itching oxycodone Allergy (Unknown, Verified 01/28/23 11:47) Itching Tylox Allergy (Unknown, Uncoded 01/28/23 11:47) Itching HPI PO-R hand S/P CTS w/ Trigger release MF HPI Details 52-year-old female who returns to the [facility] today for a follow-up of right and left-hand s/p CTR. She states she has stiffness and constant pain in her bilateral hands which is worse in her right hand. She rates the pain as 7 on the scale of 0-10. Her pain is aggravated with pinching or gripping items which is affecting her AODL such as brushing teeth and putting on clothes. She continues to perform exercises at home. She denies any numbness or tingling and has not had any injury in the past. 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 NVI. Assessment & Plan Assessment & Plan (1) Trigger thumb: Code(s): M65.319 - Trigger thumb, unspecified thumb Qualifiers: Laterality: right Qualified Code(s): M65.311 - Trigger thumb, right thumb Plan Since she does not have active catching or locking, we will treat this with a night splint which was given to her in the office today. If symptoms persist or worsens and she has active catching or locking, she will see Dr. Squires to discuss surgical intervention. Patient Instructions: Scribed for Perla Orozco PA-C, by Bhavik Fam certified medical biller, on 03/11/2023 at 1:00 PM EST. I, Perla Orozco PA-C, have personally reviewed and agree with the information entered by the scribe. Coding Level of Care Code Est Pt Level 3 (73223) Diagnoses Trigger finger of right thumb M65.311 Laterality: right
[2023-03-11 13:33] VITALS: BMI 23.0
== END 2023-03-11 13:30 | disposition home or self-care (01) ==
PROVIDERS: PCP Physician Assistant Medical; Visit Provider Physician Assistant
DX: M65.311 Trigger thumb, right thumb (principal)
CPT/HCPCS: 99213

== ENCOUNTER → 2023-03-11 12:30 | Outpatient (BNVA) | payer OTHER, MEDICAID, SELFPAY | PROVIDERS: PCP Physician Assistant Medical; Visit Provider Physician Assistant ==

== ENCOUNTER 2023-03-19 09:24 | Outpatient (AMB) | payer OTHER, SELFPAY ==
--- NOTE | 2023-03-19 09:44 | A.OFFVIS_ITS ---
Intake Intake Visit Reasons: Follow up Allergies doxycycline Allergy (Unknown, Verified 03/19/23 09:48) Itching oxycodone Allergy (Unknown, Verified 03/19/23 09:48) Itching Tylox Allergy (Unknown, Uncoded 01/28/23 11:47) Itching HPI Follow up HPI Details GI CLINIC VISIT FOR THIS 52-YEAR-OLD PASHTO-SPEAKING FEMALE FOR FOLLOW-UP OF COLITIS AND BLACK STOOLS. Patient returns after a hiatus of 2.5 years PATIENT WAS SEEN AT [facility] ON 12/14/2019 WITH ABDOMINAL PAIN: Chief Complaint: ABDOMINAL PAIN. This started several weeks; patient history of IBS with diarrhea been having pain for last 3 weeks was seen here on 12/[address] scan was done which was negative except for slight colitis patient comes back for continuing pain and diarrhea without any significant blood. No fever no chills and is still present. It is described as cramping and it is described as generalized in location. At its maximum, severity described as mild. When seen in the E.D., severity described as moderate. Modifying factors- worsened by food. Not relieved by anything. The patient has had nausea and diarrhea. No loss of appetite or vomiting. Similar symptoms previously. Patient has had similar symptoms several times . Varying from previously LABS IN [facility] : 12/16/19 Normal ESR and CRP, normal iron studies with ferritin of 66, vitamin B12 200, folate greater than 20, methylmalonic acid normal at 122, celiac serologies were normal 12/14/19 REVIEWED IMAGING STUDIES: 09/27/20 PELVIC US SHOWED: 1. Multiple hypoechoic foci in the uteri ne parenchyma, probable fibroids. Largest measures 2.6 cm. 2. Endometrial thickness 0.6 cm. Patient is postmenopausal. Please clinically correlate. If the patient is symptomatic, further evaluation would be needed. Guidelines for postmenopausal patients the endometrial thicknesses limits are as follows: ? 8mm or less is normal if no bleeding (10mm is okay if on tamoxifen) ? 4mm max if bleeding ? Pre-menopausal patients, the endometrium can become very thick during the menstrual cycle, normally up to 15mm 12/05/[address] SCAN SHOWED: Inflammation of a short segment of colon at the splenic flexure and proximal descending colon, suspicious for colitis. Correlation with recent or followup colonoscopy is advised to exclude an underlying mass lesion. ENDOSCOPIC STUDIES: 02/06/2020 EGD AND COLONOSCOPY SHOWED: Endoscopy Findings: ESOPHAGUS: Tortuous esophagus with increased tertiary contractions without stricture - biopsies obtained from proximal esophagus to check for EOE. GE junction at 38 cms. No esophagitis or Barretts. STOMACH: Mild gastric erythema with a 6-7 mm gastric ulcer and multiple linear chronic appearing erosions - likely related to naproxen use. Biopsies were obtained from the ulcer and gastric antrum. DUODENUM: Normal - bxed to check for celiac sprue Colonoscopy Findings: One 10-12 mm polyp removed Moderate diverticulosis seen in the sigmoid colon Plan: Pt advised to start taking Omeprazole twice daily. To decrease Naprosyn from 500 mg two tab every morning to 1 tablet once daily with 500 mg acetaminophen. Patient has an appointment on 03/12/20 in the GI Clinic with Jody Stokes M.D. Repeat Colonoscopy interval based on path results - in 3-5 years if polyps are adenomatous and due to positive FH of colon cancer (in a maternal cousin) Above findings were reviewed with the patient and Gastritis and Colon polyps handouts were provided. BIOPSIES SHOWED: A. Small bowel, biopsy: Small intestinal mucosa within normal limits. B. Stomach, antrum, biopsy: - Antral-type mucosa with severe chronic, focally active, inflammation. - Positive for H. pylori. C. Stomach, ulcer, biopsy: - Antral-type mucosa with severe chronic, focally active, inflammation. - Positive for H. pylori D. Esophagus, biopsy: Squamous epithelium within normal limits; no inflammation seen. E. Colon, right, biopsy: Colonic mucosa within normal limits. F. Colon, descending, polypectomy: Hyperplastic mucosal polyp. G. Colon, left, biopsy: Colonic mucosa within normal limits. TODAY'S VISIT: Patient cc: on and off abdominal pain, GERD, N+V, and diarrhea. Denies any constipation. Has abdominal pain off and on. Tried Dicyclomine and stopped taking it since it made her feel very tired and patient is unclear if it helped her abdominal pain. No periods for 8 months or more - occasional spotting Pt states Its better now because i have been controlling what I eat but its been bothering me. I watched what I eat and I try not to eat a lot or greasy food it messes with my stomach. My stomach has been feeling warm and feeling like I'm gonna throw up after I drank coffee. I don't even drink cream in my coffee no more. Having a lot of periumblical abdominal pain here and there - radiating into the lower abdomen and pelvis. Had bad pain 3 days ago. Avoiding foods (like Pizza & ice cream) which make her stomach upset. Notes pain after she drinks coffee in the morning. Taking her medication once daily. Stomach can get hard and notes burning Can wake up at night with abdominal pain which can last upto 3 hours. PAST VISITS: Results of stool antigen for H Pylori - positive. Advised re-treatment with quadruple therapy. Has been feeling OK. Feeling better. No pain if she takes Omperazole. Noted recurrent pain 2/10 after she ran out of her prescription. Having neck pains and advised to take Tylenol Arthiritis. Has been referred to PT. MAHER, fatigue and nausea last week and felt sick to her stomach. Took tylenol for HAs. Denies fever or SOB. Was taking crackers and water. [place] like she had a bug. Feels OK and MAHER has resolved. Continues to have abdominal pain when she eats. Not taking Omeprazole Having a BM daily Lab results were reviewed with the patient. Doing well, avoiding fried and spicy foods and other foods. Notes abd pain when she eats pork, pork chops Red meat can cause pain intermittently. Has diarrhea when she has [place] rice. [place] and three of her brothers have fever and are throwing up. Had burning when she went to the bathroom yesterday - denies blood in the stool. Noted irritation around the anus and used vaseline. Notes some blood on wiping. Has a normal BM every morning. Denies abdominal pain. Thinks she has a yeast infection after she had antibiotics. Used medications x 5 days. Denies taking Omeprazole or Citrucil since she does not like to take pills. Intermittent episodes of abdominal pain for the past 7-8 yrs. Has been trying to eat better and watch out what she eats. Advised to avoid seeds/corn. Has been eating little since she feels full. Notes nausea. Gets sick if she does not follow her diet. Had abd pain 2 weeks ago after she had a salad with cheese for dinner. Was sick with nausea and vomiting and diarrhea with dark stools x 3 days. Seen in ED and started on antibiotics. [place] better for 2 days. Then sick again this past weekend. Has been eating soup, jello, water. Pain starts in the upper abdomen and becomes generalized. Pain is cramping and sometimes constant Sometimes radiates to the back. Gets pains in her hands if she does not take the Naprosyn. Having BM daily, had diarrhea recently. Intermittent constipation and has to strain and push and strain. Drinks a Frappe and is able to have a BM after 2 hrs. Also notes intermittent dysphagia with episodes of choking. Has chronic bronchitis and saw a Pulmonary doctor. PATIENT DENIES MAJOR CARDIAC OR PULMONARY PROBLEMS, LOUD SNORING OR SLEEP APNEA DENIES PROBLEMS WITH ANESTHESIA IN THE PAST. DENIES BEING ON CHRONIC ANTICOAGULATION and takes an NSAID every day. PATIENT DENIES KNOWN FAMILY HISTORY OF COLON POLYPS, COLON CANCER OR OTHER GI MALIGNANCIES. 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 pylori] as the cause of diseases classified elsewhere (4) Chronic constipation: Code(s): K59.09 - Other constipation (5) Vitamin B12 deficiency: Code(s): E53.8 - Deficiency of other specified B group vitamins (6) Colon cancer screening: Comment: 01/2020 Colonoscopy showed a 10-12 mm hyperplastic polyp and moderate diverticulosis seen in the sigmoid colon Repeat Colonoscopy is advised in 5 yrs due to positive FH of colon cancer (in a maternal cousin). Code(s): Z12.11 - Encounter for screening for malignant neoplasm of colon Plan 52 YF with hypertension referred to GI with history of GERD, dysphagia, intermittent episodes of abdominal pain with diarrhea alternating with constipation. She was hospitalized and treated for diverticulitis in 2012. Recent CT scan showed inflammatory changes in the splenic flexure and DC. Her symptoms and CT findings are likely due to IBD, ischemic colitis, recurrent diverticulitis. She can have associated IBS or celiac disease. Labs showed normal CRP, sed rate and iron studies. Vitamin B12 level was 200 - lower limit of normal and patient was advised to start oral vitamin B12 replacement. 02/06/2020 EGD AND COLONOSCOPY SHOWED: Endoscopy Findings: ESOPHAGUS: Tortuous esophagus with increased tertiary contractions without stricture - biopsies obtained from proximal esophagus to check for EOE. GE junction at 38 cms. No esophagitis or Barretts. STOMACH: Mild gastric erythema with a 6-7 mm gastric ulcer and multiple linear chronic appearing erosions - likely related to naproxen use. Biopsies were obtained from the ulcer and gastric antrum and were positive for H Pylori. Colonoscopy Findings: One 10-12 mm hyperplastic polyp removed and moderate diverticulosis seen in the sigmoid colon patient was treated with the amoxicillin, clarithromycin and omeprazole twice daily for H pylori gastritis in 01/2020. Follow-up stool test was positive for was H pylori antigen - she was re- treated with Bismuth, metronidazole and amoxicillin ( since she is allergic to doxycycline).. Patient will be scheduled for an abdominal ultrasound to look for non radiopaque stones and a pelvic ultrasound to follow-up on uterine fibroids seen on past CT scan. 09/27/20 PELVIC US SHOWED: 1. Multiple hypoechoic foci in the uterine parenchyma, probable fibroids. Largest measures 2.6 cm. 2. Endometrial thickness 0.6 cm. Patient is postmenopausal. Please clinically correlate. If the patient is symptomatic, further evaluation would be needed. Pt was referred to OBGYn to followup on above pelvic ultrasound findings. Patient sees an OBGYN in [place] and will call the GI clinic with the name and address of the clinic for the referral. FU in 6 months. Coding Diagnoses GERD without esophagitis K21.9 Dysphagia, pharyngoesophageal phase R13.14 Helicobacter pylori gastritis K29.70; B96.81 Chronic constipation K59.09 Vitamin B12 deficiency E53.8 Colon cancer screening Z12.11
--- NOTE | 2023-03-19 09:51 | MHC.OFFVIS ---
Intake Vital Signs 03/19/23 09:56 Height 5 ft 4 in Weight 134 lb BMI 23.0 BP 148/82 H Blood Pressure Location Lt brachial Position Sitting Pulse 79 Intake Visit Reasons: Follow up Intake Note: Patient follow up for chronic constipation. Patient cc: abdominal pain, Nauseas, GERD, constipation on and off, dysphagia on and off, and loose weight. 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 Accompanied by: Self / Same As Patient Allergies doxycycline Allergy (Unknown, Verified 03/19/23 09:48) Itching oxycodone Allergy (Unknown, Verified 03/19/23 09:48) Itching Tylox Allergy (Unknown, Uncoded 01/28/23 11:47) Itching Medication List - Last Reconciled 03/19/23 by Jody Stokes MD acetaminophen 500 mg PO QID PRN albuterol sulfate 1 mg inhalation Q6H PRN duloxetine 60 mg PO DAILY lisinopril 40 mg PO DAILY HPI Follow up HPI Details GI CLINIC VISIT FOR THIS 52-YEAR-OLD THAI-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 LABS IN [facility] : 12/16/19 Normal ESR and CRP, normal iron studies with ferritin of 66, vitamin B12 200, folate greater than 20, methylmalonic acid normal at 122, celiac serologies were normal 12/14/19 REVIEWED IMAGING STUDIES: 09/27/20 PELVIC US SHOWED: 1. Multiple hypoechoic foci in the uterine parenchyma, probable fibroids. Largest measures 2.6 cm. 2. Endometrial thickness 0.6 cm. Patient is postmenopausal. Please clinically correlate. If the patient is symptomatic, further evaluation would be needed. Guidelines for postmenopausal patients the endometrial thicknesses limits are as follows: ? 8mm or less is normal if no bleeding (10mm is okay if on tamoxifen) ? 4mm max if bleeding ? Pre-menopausal patients, the endometrium can become very thick during the menstrual cycle, normally up to 15mm 12/05/[address] SCAN SHOWED: Inflammation of a short segment of colon at the splenic flexure and proximal descending colon, suspicious for colitis. Correlation with recent or followup colonoscopy is advised to exclude an underlying mass lesion. ENDOSCOPIC STUDIES: 02/06/2020 EGD AND COLONOSCOPY SHOWED: Endoscopy Findings: ESOPHAGUS: Tortuous esophagus with increased tertiary contractions without stricture - biopsies obtained from proximal esophagus to check for EOE. GE junction at 38 cms. No esophagitis or Barretts. STOMACH: Mild gastric erythema with a 6-7 mm gastric ulcer and multiple linear chronic appearing erosions - likely related to naproxen use. Biopsies were obtained from the ulcer and gastric antrum. DUODENUM: Normal - bxed to check for celiac sprue Colonoscopy Findings: One 10-12 mm polyp removed Moderate diverticulosis seen in the sigmoid colon Plan: Pt advised to start taking Omeprazole twice daily. To decrease Naprosyn from 500 mg two tab every morning to 1 tablet once daily with 500 mg acetaminophen. Patient has an appointment on 03/12/20 in the GI Clinic with Jody Stokes M.D. Repeat Colonoscopy interval based on path results - in 3-5 years if polyps are adenomatous and due to positive FH of colon cancer (in a maternal cousin) Above findings were reviewed with the patient and Gastritis and Colon polyps handouts were provided. BIOPSIES SHOWED: A. Small bowel, biopsy: Small intestinal mucosa within normal limits. B. Stomach, antrum, biopsy: - Antral-type mucosa with severe chronic, focally active, inflammation. - Positive for H. pylori. C. Stomach, ulcer, biopsy: - Antral-type mucosa with severe chronic, focally active, inflammation. - Positive for H. pylori D. Esophagus, biopsy: Squamous epithelium within normal limits; no inflammation seen. E. Colon, right, biopsy: Colonic mucosa within normal limits. F. Colon, descending, polypectomy: Hyperplastic mucosal polyp. G. Colon, left, biopsy: Colonic mucosa within normal limits. TODAY'S VISIT: Patient follow up for chronic constipation. Patient cc: abdominal pain, Nauseas, GERD, constipation on and off, dysphagia on and off, and loose weight. Notes recurrent abdominal pain since she ran out of Omeprazole Ate a burger and had nausea and abdominal pain x 3 days. Stomach starts hurting when she eats pork chops, burgers and coffee Unable to eat icecream since she gets abdominal pain. Has lost weight (weighed 146 lbs a few months ago) Intermittent dysphagia to solids Tries to have a BM daily - notes intermittent constipation. PAST VISITS: Has abdominal pain off and on. Tried Dicyclomine and stopped taking it since it made her feel very tired and patient is unclear if it helped her abdominal pain. No periods for 8 months or more - occasional spotting Pt states Its better now because i have been controlling what I eat but its been bothering me. I watched what I eat and I try not to eat a lot or greasy food it messes with my stomach. My stomach has been feeling warm and feeling like I'm gonna throw up after I drank coffee. I don't even drink cream in my coffee no more. Having a lot of periumblical abdominal pain here and there - radiating into the lower abdomen and pelvis. Had bad pain 3 days ago. Avoiding foods (like Pizza & ice cream) which make her stomach upset. Notes pain after she drinks coffee in the morning. Taking her medication once daily. Stomach can get hard and notes burning Can wake up at night with abdominal pain which can last upto 3 hours. Results of stool antigen for H Pylori - positive. Advised re-treatment with quadruple therapy. Has been feeling OK. Feeling better. No pain if she takes Omperazole. Noted recurrent pain 2/10 after she ran out of her prescription. Having neck pains and advised to take Tylenol Arthiritis. Has been referred to PT. MAHER, fatigue and nausea last week and felt sick to her stomach. Took tylenol for HAs. Denies fever or SOB. Was taking crackers and water. [place] like she had a bug. Feels OK and MAHER has resolved. Continues to have abdominal pain when she eats. Not taking Omeprazole Having a BM daily Lab results were reviewed with the patient. Doing well, avoiding fried and spicy foods and other foods. Notes abd pain when she eats pork, pork chops Red meat can cause pain intermittently. Has diarrhea when she has [place] rice. [place] and three of her brothers have fever and are throwing up. Had burning when she went to the bathroom yesterday - denies blood in the stool. Noted irritation around the anus and used vaseline. Notes some blood on wiping. Has a normal BM every morning. Denies abdominal pain. Thinks she has a yeast infection after she had antibiotics. Used medications x 5 days. Denies taking Omeprazole or Citrucil since she does not like to take pills. Intermittent episodes of abdominal pain for the past 7-8 yrs. Has been trying to eat better and watch out what she eats. Advised to avoid seeds/corn. Has been eating little since she feels full. Notes nausea. Gets sick if she does not follow her diet. Had abd pain 2 weeks ago after she had a salad with cheese for dinner. Was sick with nausea and vomiting and diarrhea with dark stools x 3 days. Seen in ED and started on antibiotics. [place] better for 2 days. Then sick again this past weekend. Has been eating soup, jello, water. Pain starts in the upper abdomen and becomes generalized. Pain is cramping and sometimes constant Sometimes radiates to the back. Gets pains in her hands if she does not take the Naprosyn. Having BM daily, had diarrhea recently. Intermittent constipation and has to strain and push and strain. Drinks a Frappe and is able to have a BM after 2 hrs. Also notes intermittent dysphagia with episodes of choking. Has chronic bronchitis and saw a Pulmonary doctor. PATIENT DENIES MAJOR CARDIAC OR PULMONARY PROBLEMS, LOUD SNORING OR SLEEP APNEA DENIES PROBLEMS WITH ANESTHESIA IN THE PAST. DENIES BEING ON CHRONIC ANTICOAGULATION and takes an NSAID every day. PATIENT DENIES KNOWN FAMILY HISTORY OF COLON POLYPS, COLON CANCER OR OTHER GI MALIGNANCIES. 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 Review of Systems Const All systems reviewed & are unremarkable except as noted in HPI and below Physical Exam Vital Signs: Last Vital Signs Pulse 79 03/19/23 09:56 BP 148/82 H 03/19/23 09:56 BMI result Body Mass Index 23.0 Const General: healthy appearing and no acute distress Nutritional Appearance: average body habitus Orientation/consciousness: patient oriented x3 Limitations: no limitations HEENT Head: Yes normal to inspection Ears: hearing grossly normal bilaterally Eyes Sclerae: sclerae normal Pupils: Equal, round and reactive pupils present Neck Neck: Yes normal visual inspection Chest Chest palpation & inspection: normal inspection of the chest Resp Effort & Inspection: normal respiratory effort Auscultation: clear to auscultation bilaterally Cardio Palpation: normal PMI Rate: regular rate Rhythm: regular rhythm Heart sounds: S1 normal heart sound present, S2 normal heart sound present and no murmurs GI Palpation (GI): Soft to palpation, nontender and No hepatosplenomegaly present Auscultation: normal bowel sounds Rectal Exam - Female: deferred Skin General skin exam: no rashes or lesions noted Neuro General: patient oriented x3, gait normal and moves all extremities Cranial nerves: Yes Equal, round and reactive pupils present Psych Appearance: grossly normal Mental Status: mental status grossly normal Assessment & Plan Assessment & Plan (1) GERD without esophagitis: Code(s): K21.9 - Gastro-esophageal reflux disease without esophagitis (2) Dysphagia, pharyngoesophageal phase: Code(s): R13.14 - Dysphagia, pharyngoesophageal phase (3) Helicobacter pylori gastritis: Comment: treated and FU H pylori stool antigen was negative Code(s): K29.70 - Gastritis, unspecified, without bleeding; B96.81 - Helicobacter pylori [H. pylori] as the cause of diseases classified elsewhere (4) Chronic constipation: Code(s): K59.09 - Other constipation (5) Vitamin B12 deficiency: Code(s): E53.8 - Deficiency of other specified B group vitamins (6) Colon cancer screening: Comment: 01/2020 Colonoscopy showed a 10-12 mm hyperplastic polyp and moderate diverticulosis seen in the sigmoid colon Repeat Colonoscopy is advised in 5 yrs due to positive FH of colon cancer (in a maternal cousin). Due 11/2024 Code(s): Z12.11 - Encounter for screening for malignant neoplasm of colon Plan 52 YF with hypertension referred to GI with history of GERD, dysphagia, intermittent episodes of abdominal pain with diarrhea alternating with constipation. She was hospitalized and treated for diverticulitis in 2012. Recent CT scan showed inflammatory changes in the splenic flexure and DC. Her symptoms and CT findings are likely due to IBD, ischemic colitis, recurrent diverticulitis. She can have associated IBS or celiac disease. Labs showed normal CRP, sed rate and iron studies. Vitamin B12 level was 200 - lower limit of normal and patient was advised to start oral vitamin B12 replacement. 02/06/2020 EGD AND COLONOSCOPY SHOWED: Endoscopy Findings: ESOPHAGUS: Tortuous esophagus with increased tertiary contractions without stricture - biopsies obtained from proximal esophagus to check for EOE. GE junction at 38 cms. No esophagitis or Barretts. STOMACH: Mild gastric erythema with a 6-7 mm gastric ulcer and multiple linear chronic appearing erosions - likely related to naproxen use. Biopsies were obtained from the ulcer and gastric antrum and were positive for H Pylori. Colonoscopy Findings: One 10-12 mm hyperplastic polyp removed and moderate diverticulosis seen in the sigmoid colon patient was treated with the amoxicillin, clarithromycin and omeprazole twice daily for H pylori gastritis in 01/2020. Follow-up stool test was positive for was H pylori antigen - she was re-treated with Bismuth, metronidazole and amoxicillin ( since she is allergic to doxycycline).. Patient will be scheduled for an abdominal ultrasound to look for non radiopaque stones and a pelvic ultrasound to follow-up on uterine fibroids seen on past CT scan. 09/27/20 PELVIC US SHOWED: 1. Multiple hypoechoic foci in the uterine parenchyma, probable fibroids. Largest measures 2.6 cm. 2. Endometrial thickness 0.6 cm. Patient is postmenopausal. Please clinically correlate. If the patient is symptomatic, further evaluation would be needed. Pt will be referred to OBGYn to followup on above pelvic ultrasound findings. Patient sees an OBGYN in [place] [employer] and will call the GI clinic with the name and address of the clinic for the referral. 03/19/23 Notes recurrent abdominal pain since she ran out of Omeprazole and refill sent Patient advised to take senna daily for a week for constipation and then p.r.n. FU in 4 months. Medications: New sennosides-docusate sodium 8.6-50 mg (Senna with Docusate Sodium) Please take every other day at bedtime 1 tab-cap PO BEDTIME 60 tabs 2RF 60 days omeprazole 20 mg PO BID 180 caps 1RF 90 days K21.9 - Gastro-esophageal reflux disease without esophagitis omeprazole 20 mg PO DAILY 90 days 90 caps 1RF K21.9 - Gastro-esophageal reflux disease without esophagitis Coding Level of Care Code Est Pt Level 4 (42585) Diagnoses GERD without esophagitis K21.9 Dysphagia, pharyngoesophageal phase R13.14 Helicobacter pylori gastritis K29.70; B96.81 Chronic constipation K59.09 Vitamin B12 deficiency E53.8 Colon cancer screening Z12.11 Time Spent (min) 23
[2023-03-19 09:56] VITALS: BP 148/82; PULSE 79; BMI 23.0
== END 2023-03-19 10:29 | disposition home or self-care (01) ==
PROVIDERS: Visit Provider Internal Medicine Gastroenterology
DX: K21.9 Gastro-esophageal reflux disease without esophagitis (principal); R13.14 Dysphagia, pharyngoesophageal phase; K29.70 Gastritis, unspecified, without bleeding; B96.81 Helicobacter pylori [H. pylori] as the cause of diseases classified elsewhere; K59.09 Other constipation; E53.8 Deficiency of other specified B group vitamins; Z12.11 Encounter for screening for malignant neoplasm of colon
CPT/HCPCS: 99214

== ENCOUNTER → 2023-03-19 09:24 | Outpatient (BNVA) | payer OTHER, SELFPAY | PROVIDERS: Visit Provider Internal Medicine Gastroenterology ==

== ENCOUNTER 2023-04-10 08:05 | Outpatient (AMB) | payer OTHER, SELFPAY ==
--- NOTE | 2023-04-10 08:07 | A.OFFVIS_ITS ---
Intake Vital Signs 04/10/23 08:12 Height 5 ft 4 in Weight 134 lb BMI 23.0 Intake Visit Reasons: New Prob- B/L thumb pain Intake Note: María is a 52 year old right hand dominant female who presents today for a follow up visit for her bilateral thumb trigger fingers. She was last seen with Perla who provided patient with night splint for the right hand, and instructed to follow up with hand surgeon if active locking an catching becomes apparent. She explains that the right thumb is locking swollen and painful, the left thumb is painful but not locking. Denies numbness and tingling. 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 Her chief complaint today is of painful locking and catching of her right thumb. She is also developing some painful locking catching of her left thumb. She is status post bilateral carpal tunnel releases with me as well as a release of the right middle finger trigger finger. She does report excellent improvement in numbness and tingling in both hands. She says she also no longer has locking or catching of the right middle finger and has work to get good range of motion in the fingers of both hands. Please see my note from 12/24/2022 for additional information as necessary. 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 All surgical incisions are well healed now. Sensation intact and normal to the tips of all digits bilaterally. She can make a fist bilaterally and extend all fingers with no locking and catching of the fingers. However, she has visible palpable and painful locking and catching of the right thumb. She also has some visible catching of the left thumb. She is tender to palpation over the A1 pulleys of both thumbs, with significantly more tenderness on the right side. No swelling or erythema. Smooth wrist range of motion. Office Procedures Fracture Care Details: No fracture, injection Fracture Billing Code: Fracture Billing Code Results Reviewed Results Reviewed: 04/10/23 08:53 Lidocaine HCl 1 % [Xylocaine 1 %] 2 ml .ROUTE .STK-MED ONE dexAMETHasone sod phosphate [Decadron] 4 mg .ROUTE .STK-MED ONE Assessment & Plan Assessment & Plan (1) Trigger finger of right thumb: Code(s): M65.311 - Trigger thumb, right thumb (2) Trigger finger of left thumb: Code(s): M65.312 - Trigger thumb, left thumb (3) Carpal tunnel syndrome of right wrist: Code(s): G56.01 - Carpal tunnel syndrome, right upper limb (4) Carpal tunnel syndrome of left wrist: Code(s): G56.02 - Carpal tunnel syndrome, left upper limb Plan Assessment and plan: 1. Right trigger thumb This is a new problem and her most symptomatic complaint 2. Left trigger thumb Less symptomatic than the right, and also a new problem I educated her about these conditions We discussed operative and non operative treatment options. She wishes to try steroid injection on the right. Injection #1: The risks and benefits of a steroid injection including but not limited to risk of damage to blood vessels, nerves, tendons, infection, skin bleaching, failure to improve symptoms, increased pain, and possible need for further injections or other intervention were discussed with the patient and the patient wishes to proceed with the steroid injection. Once consent was obtained, I sterilely prepped the area over the A1 mohan of the flexor tendon sheath of the right thumb. I then injected the flexor tendon sheath with a combination of 1 mL of dexamethasone (4mg/ml), and 1% lidocaine. The patient tolerated the procedure well with no complications. If the patient continues to have locking and catching 4-6 weeks following this injection, they may call to schedule appointment to be seen for possible A1 mohan release. 3. Left carpal tunnel syndrome status post release Date of surgery 01/15/2023 With good resolution of symptoms and normal sensation 4. Right carpal tunnel syndrome status post release Date of surgery 12/11/2022 With good resolution of symptoms and normal sensation 5. Right middle finger trigger finger status post release Date of surgery 12/11/2022 6. Right middle finger stiffness and pain, status post finger manipulation under anesthesia Date of manipulation 12/11/2022 She no longer has locking and catching, and has good range of motion without pain. Coding Level of Care Code Est Pt Level 3 (55717) Diagnoses Trigger finger of right thumb M65.311 Trigger finger of left thumb M65.312 Carpal tunnel syndrome of right wrist G56.01 Carpal tunnel syndrome of left wrist G56.02 CPT Codes Fracture Care - Fracture Billing Code: Fracture Billing Code ([id number])
[2023-04-10 08:12] VITALS: BMI 23.0
== END 2023-04-10 09:20 | disposition home or self-care (01) ==
PROVIDERS: PCP Physician Assistant Medical; Visit Provider Orthopaedic Surgery
DX: M65.311 Trigger thumb, right thumb (principal); M65.312 Trigger thumb, left thumb; G56.01 Carpal tunnel syndrome, right upper limb; G56.02 Carpal tunnel syndrome, left upper limb
CPT/HCPCS: 20550; 99213

== ENCOUNTER → 2023-04-10 08:05 | Outpatient (BNVA) | payer OTHER, MEDICAID, SELFPAY | PROVIDERS: PCP Physician Assistant Medical; Visit Provider Orthopaedic Surgery | DX: M65.311 Trigger thumb, right thumb (principal); M65.312 Trigger thumb, left thumb; Z86.69 Personal history of other diseases of the nervous system and sense organs | CPT/HCPCS: 20550; J1100 ==

== ENCOUNTER 2023-04-18 05:17 | Emergency (ER) | payer OTHER, MEDICAID, SELFPAY ==
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
[2023-04-18 05:18] VITALS: BP 131/94; PULSE 83; RESP 16; TEMP 36.7; O2SAT 98; BMI 27.3
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
--- NOTE | 2023-04-18 05:59 | PC.NURSE ---
Pt ca&ox4, no signs of distress. Pt reports 8/10 head, neck, right side back and rib pain. Pt denies n/v. Plan of care ongoing.
--- NOTE | 2023-04-18 06:02 | PC.NURSE ---
Pt taken to CT.
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
--- NOTE | 2023-04-18 07:11 | PC.NURSE ---
This RN gave report and hand off to DWIGHT Reyes.
--- NOTE | 2023-04-18 07:35 | PC.NURSE ---
report taken from DWIGHT Calloway. pt a&o x4, pleasant, calm, and cooperative. reporting 8/10 pain that goes from R Lower Back down Right Leg to foot where pt sts is numb . pt also reporting neck pain. c-collar taken off of pt by ZAKIA Plascencia after CT scan cleared. pt to be discharged.
== END 2023-04-18 07:36 | disposition home or self-care (01) ==
PROVIDERS: Emergency Provider Student in an Organized Health Care Education/Training Program; PCP Physician Assistant Medical
DX: S16.1XXA Strain of muscle, fascia and tendon at neck level, initial encounter (principal); V43.53XA Car driver injured in collision with pick-up truck in traffic accident, initial encounter; Y93.89 Activity, other specified; Y92.414 Local residential or business street as the place of occurrence of the external cause; Y99.9 Unspecified external cause status
CPT/HCPCS: 70450; 72125; 99284

== ENCOUNTER 2023-05-20 08:01 | Outpatient (AMB) | payer OTHER, MEDICAID, SELFPAY ==
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
[2023-05-20 08:24] VITALS: BMI 27.3
== END 2023-05-20 08:58 | disposition home or self-care (01) ==
PROVIDERS: PCP Physician Assistant Medical; Visit Provider Orthopaedic Surgery
DX: M65.311 Trigger thumb, right thumb (principal); M65.312 Trigger thumb, left thumb; G56.01 Carpal tunnel syndrome, right upper limb; G56.02 Carpal tunnel syndrome, left upper limb
CPT/HCPCS: 99214

== ENCOUNTER → 2023-05-20 08:01 | Outpatient (BNVA) | payer OTHER, MEDICAID, SELFPAY | PROVIDERS: PCP Physician Assistant Medical; Visit Provider Orthopaedic Surgery ==

== ENCOUNTER 2023-06-28 00:35 | Emergency (ER) | payer OTHER, SELFPAY ==
[2023-06-28 00:37] VITALS: BP 149/106; PULSE 106; RESP 18; TEMP 37.3; O2SAT 96; BMI 29.1
--- NOTE | 2023-06-28 01:13 | ED.GENADULT ---
HPI - General Adult General Chief complaint: Dyspnea Stated complaint: Asthma, SOB Time Seen by Provider: 06/28/23 01:16 Source: patient Mode of arrival: ambulatory Limitations: no limitations History of Present Illness HPI narrative: a 52-year-old female came in for evaluation of coughing and shortness of breath for about 7 days. Son is sick with pneumonia, patient also feels runny nose, sneezing, coughing, generalized body ache, chills, with subjective fever. Related Data Home Medications Medication Instructions Recorded Confirmed albuterol sulfate 2.5 mg/3 mL 1 mg inhalation Q6H PRN Shortness 12/31/21 03/19/23 (0.083 %) solution for nebulization Of Breath duloxetine 60 mg capsule,delayed 60 mg PO DAILY 03/19/23 03/19/23 release lisinopril 40 mg tablet 40 mg PO DAILY 03/19/23 03/19/23 Previous Rx's Medication Instructions Recorded acetaminophen 500 mg capsule 500 mg PO QID PRN fever or pain 06/23/21 #14 caps omeprazole 20 mg capsule,delayed 20 mg PO BID 90 days #180 caps 03/19/23 release sennosides 8.6 mg-docusate sodium 1 tab-cap PO BEDTIME 60 days #60 03/19/23 50 mg tablet (Senna with Docusate tabs Sodium) albuterol sulfate 90 mcg/actuation 2 puff inhalation QID PRN 06/28/23 aerosol inhaler shortness of breath or wheezing #8.5 grams prednisone 20 mg tablet 20 mg PO BID #10 tabs 06/28/23 Allergies Allergy/AdvReac Type Severity Reaction Status Date / Time doxycycline Allergy Unknown Itching Verified 05/20/23 08:32 oxycodone Allergy Unknown Itching Verified 05/20/23 08:32 Tylox Allergy Unknown Itching Uncoded 05/20/23 08:32 Review of Systems Review of Systems: All other systems are reviewed and are negative Constitutional: Reports as per HPI and Reports no additional constitutional complaints Eyes: Reports as per HPI and Reports no additional eye complaints Reports system reviewed and no additional complaints, except as documented Cardiovascular: Reports as per HPI and Reports no additional cardiovascular complaints Respiratory: Reports as per HPI and Reports no additional respiratory complaints Gastrointestinal: Reports as per HPI and Reports no additional gastrointestinal complaints Genitourinary: Reports no additional female genitourinary complaints Musculoskeletal: Reports no additional musculoskeletal complaints Skin/Breast: Reports system reviewed and no additional complaints, except as docu Psychiatric: Reports no additional psychiatric complaints Endocrine: Reports no additional endocrine complaints Hematologic/Lymphatic: Reports no additional hematologic/lymphatic complaints Allergic/Immunologic: Reports no additional allergic/immunologic complaints Reports system reviewed and no additional complaints, except as documented and Reports Abnormal speech present PMFSH Past Medical History Onset Date is defined in the Problem List Problems that require an onset date and time if occurred within 24 hrs of arrival to the ED Aortic Dissection and Rupture; Neurologic impairment; Cardiopulmonary Arrest; Endotracheal Intubation; Insertion or Replacement of Mechanical Circulatory Assist Device Medical History Multiple sclerosis GERD (gastroesophageal reflux disease) Anxiety Asthma Hypertension Diverticulitis Surgical History History of carpal tunnel release (01/15/23) Hx of endoscopy History of colonoscopy Family History Family History Father Alive and well Mother Hx of diabetes insipidus Social History Social History Household Members: Family, Children and Other Alcohol intake: current Alcohol intake frequency: does not drink Patient Tobacco Use Status: Never used Tobacco Substance Use Type: Marijuana Advance Directives: No Advance Directives Information Provided: No Current occupational status: employed 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 Blood pressure elevated. Heart rate elevated. Respiratory rate normal. Temperature normal. Oxygen saturation normal. Appearance: Alert. Oriented X3. No acute distress. Head: Normal external exam. Normocephalic. Atraumatic. No Thompson signs noted. No raccoon eyes noted Eyes: PERRLA. EOMI. Conjunctiva and sclera normal. Eyelids normal. ENT: TM's Normal. Pharynx normal. Uvula midline. Moist mucous membranes. No trismus noted. No drooling noted. No muffled voice noted. Neck: Normal inspection. Neck supple. FROM. No adenopathy. Thyroid Normal. No meningeal signs. No neck mass noted. CVS: Normal heart rate and rhythm. Heart sound normal. No murmurs noted. Pulses normal throughout. Respiratory: No respiratory distress. Painless inspiration. Decreased breathing sounds bilaterally, expiratory wheezing with prolonged expiration. Chest nontender. No accessory muscle usage noted or decreased air movement noted. Abdomen: Soft and nontender. Bowel sounds normal in all 4 quadrants. No distention noted. No organomegaly noted. No visible injury noted. Back: No CVA tenderness. Full range of motion noted. Skin: Skin warm and dry. Normal skin color. Normal skin turgor. No rashes/lesions/lacerations noted. Extremities: No lower extremity edema. Extremities exhibit normal range of motion. Extremities nontender. Neuro: Oriented X 3. Cranial nerve exam: II-XII are grossly intact No motor deficit. No sensory deficit. Reflexes normal. Course Reevaluation(s) Reevaluation #1: upper respiratory symptoms patient is positive for RSV bronchitis feels better with bronchodilator and prednisone. Time: 02:00 Medications Administered Discontinued Medications Generic Name Dose Route Start Last Admin Trade Name Freq PRN Reason Stop Dose Admin Albuterol Sulfate 5 mg 06/28/23 01:11 06/28/23 01:34 Albuterol Sulfate (0.083%) 2.5 Mg/3 Ml Vial.Neb INHALE 06/28/23 01:12 5 mg ONCE ONE Administration Albuterol/Ipratropium 3 ml 06/28/23 01:11 06/28/23 01:34 Albuterol/Iprat 2.5/0.5mg 3 Ml Ampul.Neb INHALE 06/28/23 01:12 3 ml ONCE ONE Administration Guaifenesin 5 ml 06/28/23 01:12 06/28/23 01:27 Guaifenesin 100 Mg/5 Ml Liquid PO 06/28/23 01:13 5 ml ONCE ONE Administration Prednisone 40 mg 06/28/23 01:11 06/28/23 01:27 Prednisone 20 Mg Tablet PO 06/28/23 01:12 40 mg ONCE ONE Administration Medical Decision Making Differential Diagnosis Differential Diagnoses: The differential diagnosis associated with the presentation includes ( Pneumonia, pneumothorax, asthma exacerbation, bronchitis, RSV, COVID 19, influenza.) Admission/Observation Consideration of admission/observation: Escalation of care including admission/observation considered Lab Data MDM Lab Attestation statement: I reviewed the patient's lab results. Labs: Lab Results 06/28/23 Range/Units 00:46 Influenza Type A (PCR) NEGATIVE (Negative) Influenza Type B (PCR) NEGATIVE (Negative) RSV RNA Qual (PCR) POSITIVE A (Negative) SARS-CoV-2 RNA (RT-PCR) NEGATIVE (Negative) Independent Interpretation I performed an independent interpretation of an: Plain X-Ray ( Chest: No acute intrathoracic pathology.) Radiology Impression Discussion of test interpretation with radiology: I have reviewed the radiologist's reading. Discharge Plan Discharge Clinical Impression: RSV bronchitis Patient Disposition: Home, Self-Care Instructions: Respiratory Syncytial Virus (ED), Acute Bronchitis (ED) Prescriptions: New prednisone 20 mg tablet 20 mg PO BID Qty: 10 0RF albuterol sulfate 90 mcg/actuation HFA aerosol inhaler 2 puff inhalation QID PRN (Reason: shortness of breath or wheezing) Qty: 8.5 0RF No Action acetaminophen 500 mg capsule 500 mg PO QID PRN (Reason: fever or pain) Qty: 14 0RF albuterol sulfate 2.5 mg /3 mL (0.083 %) solution for nebulization 1 mg inhalation Q6H PRN (Reason: Shortness Of Breath) lisinopril 40 mg tablet 40 mg PO DAILY duloxetine 60 mg capsule,delayed release(DR/EC) 60 mg PO DAILY sennosides-docusate sodium [Senna with Docusate Sodium] 8.6-50 mg tablet 1 tab-cap PO BEDTIME 60 Days Qty: 60 2RF Rx Instructions: Please take every other day at bedtime omeprazole 20 mg capsule,delayed release(DR/EC) 20 mg PO BID 90 Days Qty: 180 1RF Referrals: Yin Flores PA-C [Primary Care Provider] -
[2023-06-28 01:30] LABS: Influenza A PCR NEGATIVE (Negative); Influenza B PCR NEGATIVE (Negative); Resp Syncy Virus RNA Qual PCR POSITIVE (Negative); SARS COV2 PCR INHOUSE NEGATIVE (Negative)
[2023-06-28 01:37] VITALS: PULSE 99; RESP 16; O2SAT 99
[2023-06-28 02:15] VITALS: BP 146/82; PULSE 82; RESP 16; O2SAT 99
== END 2023-06-28 02:50 | disposition home or self-care (01) ==
PROVIDERS: Emergency Provider Emergency Medicine; PCP Physician Assistant Medical
DX: J20.5 Acute bronchitis due to respiratory syncytial virus (principal); R05.9 Cough, unspecified; R06.02 Shortness of breath; I10 Essential (primary) hypertension; J45.909 Unspecified asthma, uncomplicated
CPT/HCPCS: 0241U; 71045; 94640; 99284; 99285

== ENCOUNTER 2023-08-13 09:02 | Day surgery (SDC) | payer OTHER, SELFPAY ==
[2023-08-13 09:14] VITALS: BMI 28.3
--- NOTE | 2023-08-13 09:31 | MHC.SHP ---
Pre-Procedural Eval Section A - 24 Hr Update-Section A only Date of Service: 08/13/23 The patient is an INPATIENT: No Changes since office visit: No Cold of Flu in the past 2 weeks, No New Medical Problems, No Changes in Medication and No Patient answered all questions The patient has been examined within 24 hours of the surgical procedure. The History & Physical has been completed within 30 days and I have reviewed it.: Yes Section B - Complete if H&P > 30 days Chief Complaint: Trigger thumb, right thumb Allergies: Allergies Allergy/AdvReac Type Severity Reaction Status Date / Time doxycycline Allergy Unknown Itching Verified 08/13/23 09:12 oxycodone Allergy Unknown Itching Verified 08/13/23 09:12 Tylox Allergy Unknown Itching Uncoded 08/13/23 09:12 Plan I have reviewed the history and physical and performed a pertinent physical examination on my patient. No changes have occurred unless specified. Time Spent With Patient Time: Total time managing care of this patient today ____ minutes.
--- NOTE | 2023-08-13 09:31 | W.PM.OPN ---
Operative Note Operative Note Date of Service: 08/13/23 Narrative: Operative Note Preop diagnosis: 1. Right thumb Trigger finger Postop diagnosis: 1. Right thumb Trigger finger Procedure: 1. Right thumb A1 mohan release Surgeon: Maribel Squires MD Anesthesia: local block using 1% lidocaine with epinephrine Findings: No locking or catching after A1 mohan release EBL: Less than 5 mL Tourniquet time: None Specimens: None Complications: None Disposition: Brought to recovery room in stable condition Plan: Follow-up for 10-14 days for wound check and suture removal Indications: The patient is 53 years old, with a right thumb trigger finger that has been unresponsive to nonoperative management. The risks and benefits of operative treatment including but not limited to risk of damage to blood vessels, nerves, tendons, infection, persistent pain, persistent symptoms, recurrence or possible need for additional surgery were discussed with the patient and the patient wishes to proceed with surgery. Procedure: Once consent was obtained a local block was performed in the preop area using a combination of 1% lidocaine with epinephrine. The patient was then brought back to the operating suite and placed on the operative table in supine position. The right upper extremity was prepped and draped in a standard surgical fashion. Once assured that we had a good block, a 1.5 cm oblique incision was made centered over the A1 mohan of the right thumb . The incision was made through the skin to the subcutaneous tissues using a #15 blade. Careful dissection was made down to the level of the A1 mohan using tenotomy scissors, with care being taken to protect the nearby neurovascular structures. A longitudinal incision was made in the A1 mohan 1st using a #15 blade, then using tenotomy scissors under direct visualization. The A1 mohan was noted to be thickened. Following our A1 mohan release, we no longer saw any locking or catching of the digit with flexion and extension. Once satisfied with our A1 mohan release the wound was copiously irrigated with normal saline and hemostasis was obtained with a brief period of local pressure. The skin edges were reapproximated with some 5.0 nylon suture material and a sterile dressing was applied. The patient appears to have tolerated the procedure well and with no complications. All digits were well vascularized at the conclusion of the case.
[2023-08-13 09:41] VITALS: BP 130/79; PULSE 87; RESP 16; TEMP 37.1; O2SAT 99
[2023-08-13 10:45] VITALS: BP 125/89; PULSE 76; RESP 18; O2SAT 99
[2023-08-13 11:17] VITALS: BP 125/89; PULSE 76; RESP 18; O2SAT 99
== END 2023-08-13 11:18 | disposition home or self-care (01) ==
PROVIDERS: PCP Physician Assistant Medical; Visit Provider Orthopaedic Surgery
PROC: (CPT 26055; principal; 2023-08-13 11:30)
DX: M65.311 Trigger thumb, right thumb (principal); G35 Multiple sclerosis; I10 Essential (primary) hypertension; J45.909 Unspecified asthma, uncomplicated; F41.9 Anxiety disorder, unspecified; Z88.1 Allergy status to other antibiotic agents; Z88.5 Allergy status to narcotic agent; F12.90 Cannabis use, unspecified, uncomplicated; Z98.890 Other specified postprocedural states
CPT/HCPCS: 26055; J0171

== ENCOUNTER → 2023-08-13 09:02 | Outpatient (BNV) | payer OTHER, SELFPAY | PROVIDERS: PCP Physician Assistant Medical; Visit Provider Orthopaedic Surgery | DX: M65.311 Trigger thumb, right thumb (principal) | CPT/HCPCS: 26055 ==

== ENCOUNTER 2023-08-26 08:49 | Outpatient (AMB) | payer OTHER, SELFPAY ==
[2023-08-26 08:51] VITALS: BMI 28.3
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
== END 2023-08-26 09:07 | disposition home or self-care (01) ==
PROVIDERS: PCP Physician Assistant Medical; Visit Provider Orthopaedic Surgery
DX: M65.311 Trigger thumb, right thumb (principal); M65.312 Trigger thumb, left thumb; G56.03 Carpal tunnel syndrome, bilateral upper limbs
CPT/HCPCS: 99024

== ENCOUNTER → 2023-08-26 08:49 | Outpatient (BNVA) | payer OTHER, SELFPAY | PROVIDERS: PCP Physician Assistant Medical; Visit Provider Orthopaedic Surgery ==

== ENCOUNTER 2023-09-10 11:00 | Outpatient (AMB) | payer OTHER, SELFPAY ==
--- NOTE | 2023-09-10 11:08 | MHC.OFFVIS ---
Vital Signs 09/10/23 11:15 Height 4 ft 11 in Weight 145 lb BMI 29.3 BP 138/89 Blood Pressure Location Lt brachial Position Sitting Pulse 76 Intake Visit Reasons: 4 month follow up Intake Note: Patient follow up for chronic constipation. Patient cc: abdominal pain with between diarrhea and constipation, Nauseas, and acid reflex with burning sensation. 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 Accompanied by: Self / Same As Patient Allergies doxycycline Allergy (Unknown, Verified 08/05/25 02:04) Itching Tylox Allergy (Unknown, Uncoded 08/05/25 02:04) Itching Medication List - Last Reconciled 09/10/23 by Jody Stokes MD acetaminophen 500 mg PO QID PRN albuterol sulfate 90 mcg/actuation 2 puffs inhalation QID PRN albuterol sulfate 1 mg inhalation Q6H PRN duloxetine 60 mg PO DAILY lisinopril 40 mg PO DAILY omeprazole 20 mg PO BID 90 days sennosides-docusate sodium 8.6-50 mg (Senna with Docusate Sodium) 1 tab-cap PO BEDTIME 60 days HPI HPI 4 month follow up: Details: GI CLINIC VISIT FOR THIS 53-YEAR-OLD 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 LABS IN [facility] : 12/16/19 Normal ESR and CRP, normal iron studies with ferritin of 66, vitamin B12 200, folate greater than 20, methylmalonic acid normal at 122, celiac serologies were normal 12/14/19 REVIEWED IMAGING STUDIES: 09/27/20 PELVIC US SHOWED: 1. Multiple hypoechoic foci in the uterine parenchyma, probablefibroids. Largest measures 2.6 cm. 2. Endometrial thickness 0.6 cm. Patient is postmenopausal. Pleaseclinically correlate. If the patient is symptomatic, further evaluation would be needed. Guidelines for postmenopausal patients the endometrial thicknesses limits are as follows: ? 8mm or less is normal if no bleeding (10mm is okay if on tamoxifen) ? 4mm max if bleeding ? Pre-menopausal patients, the endometrium can become very thick during the menstrual cycle, normally up to 15mm 12/05/[address] SCAN SHOWED: Inflammation of a short segment of colon at the splenic flexure and proximal descending colon, suspicious for colitis. Correlation with recent or followup colonoscopy is advised to exclude an underlying mass lesion. ENDOSCOPIC STUDIES: 02/06/2020 EGD AND COLONOSCOPY SHOWED: Endoscopy Findings: ESOPHAGUS: Tortuous esophagus with increased tertiary contractions without stricture - biopsies obtained from proximal esophagus to check for EOE. GE junction at 38 cms. No esophagitis or Barretts. STOMACH: Mild gastric erythema with a 6-7 mm gastric ulcer and multiple linear chronic appearing erosions - likely related to naproxen use. Biopsies were obtained from the ulcer and gastric antrum. DUODENUM: Normal - bxed to check for celiac sprue Colonoscopy Findings: One 10-12 mm polyp removed Moderate diverticulosis seen in the sigmoid colon Plan: Pt advised to start taking Omeprazole twice daily. To decrease Naprosyn from 500 mg two tab every morning to 1 tablet once daily with 500 mg acetaminophen. Patient has an appointment on 03/12/20 in the GI Clinic with Jody Stokes M.D. Repeat Colonoscopy interval based on path results - in 3-5 years if polyps are adenomatous and due to positive FH of colon cancer (in a maternal cousin) Above findings were reviewed with the patient and Gastritis and Colon polyps handouts were provided. BIOPSIES SHOWED: A. Small bowel, biopsy: Small intestinal mucosa within normal limits. B. Stomach, antrum, biopsy: - Antral-type mucosa with severe chronic, focally active, inflammation. - Positive for H. pylori. C. Stomach, ulcer, biopsy: - Antral-type mucosa with severe chronic, focally active, inflammation. - Positive for H. pylori D. Esophagus, biopsy: Squamous epithelium within normal limits; no inflammation seen. E. Colon, right, biopsy: Colonic mucosa within normal limits. F. Colon, descending, polypectomy: Hyperplastic mucosal polyp. G. Colon, left, biopsy: Colonic mucosa within normal limits. TODAY'S VISIT: Patient cc: abdominal pain with between diarrhea and constipation, Nauseas, and acid reflex with burning sensation. Takes Senna every other day BMs are intermittently hard Abd pain improved and has not resolved. Pain is usually after eating - avoids oil and uses an air frier Some foods cause pain one day and not on a different day. Had an episode of severe cramping abdominal pain with diarrhea 2 weeks ago. She sits on the toilet and drinks ice cold water and has diarrhea. Pain improves and can come back a little Intermittent nausea. 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 Notes a intermittent chocking sensation while eating. Had an episode of choking 3 weeks and resolved after she drank some soda. Had to self induce vomiting by putting her fingers in her mouth with a previous episode Had Carpel Tunnel surgery recently and not working at present. PAST VISITS: Notes recurrent abdominal pain since she ran out of Omeprazole Ate a burger and had nausea and abdominal pain x 3 days. Stomach starts hurting when she eats pork chops, burgers and coffee Unable to eat icecream since she gets abdominal pain. Has lost weight (weighed 146 lbs a few months ago) Intermittent dysphagia to solids Tries to have a BM daily - notes intermittent constipation. Has abdominal pain off and on. Tried Dicyclomine and stopped taking it since it made her feel very tired and patient is unclear if it helped her abdominal pain. No periods for 8 months or more - occasional spotting Pt states Its better now because i have been controlling what I eat but its been bothering me. I watched what I eat and I try not to eat a lot or greasy food it messes with my stomach. My stomach has been feeling warm and feeling like I'm gonna throw up after I drank coffee. I don't even drink cream in my coffee no more. Having a lot of periumblical abdominal pain here and there - radiating into the lower abdomen and pelvis. Had bad pain 3 days ago. Avoiding foods (like Pizza & ice cream) which make her stomach upset. Notes pain after she drinks coffee in the morning. Taking her medication once daily. Stomach can get hard and notes burning Can wake up at night with abdominal pain which can last upto 3 hours. Results of stool antigen for H Pylori - positive. Advised re-treatment with quadruple therapy. Has been feeling OK. Feeling better. No pain if she takes Omperazole. Noted recurrent pain 2/10 after she ran out of her prescription. Having neck pains and advised to take Tylenol Arthiritis. Has been referred to PT. MAHER, fatigue and nausea last week and felt sick to her stomach. Took tylenol for HAs. Denies fever or SOB. Was taking crackers and water. [place] like she had a bug. Feels OK and MAHER has resolved. Continues to have abdominal pain when she eats. Not taking Omeprazole Having a BM daily Lab results were reviewed with the patient. Doing well, avoiding fried and spicy foods and other foods. Notes abd pain when she eats pork, pork chops Red meat can cause pain intermittently. Has diarrhea when she has [place] rice. [place] and three of her brothers have fever and are throwing up. Had burning when she went to the bathroom yesterday - denies blood in the stool. Noted irritation around the anus and used vaseline. Notes some blood on wiping. Has a normal BM every morning. Denies abdominal pain. Thinks she has a yeast infection after she had antibiotics. Used medications x 5 days. Denies taking Omeprazole or Citrucil since she does not like to take pills. Intermittent episodes of abdominal pain for the past 7-8 yrs. Has been trying to eat better and watch out what she eats. Advised to avoid seeds/corn. Has been eating little since she feels full. Notes nausea. Gets sick if she does not follow her diet. Had abd pain 2 weeks ago after she had a salad with cheese for dinner. Was sick with nausea and vomiting and diarrhea with dark stools x 3 days. Seen in ED and started on antibiotics. [place] better for 2 days. Then sick again this past weekend. Has been eating soup, jello, water. Pain starts in the upper abdomen and becomes generalized. Pain is cramping and sometimes constant Sometimes radiates to the back. Gets pains in her hands if she does not take the Naprosyn. Having BM daily, had diarrhea recently. Intermittent constipation and has to strain and push and strain. Drinks a Frappe and is able to have a BM after 2 hrs. Also notes intermittent dysphagia with episodes of choking. Has chronic bronchitis and saw a Pulmonary doctor. PATIENT DENIES MAJOR CARDIAC OR PULMONARY PROBLEMS, LOUD SNORING OR SLEEP APNEA DENIES PROBLEMS WITH ANESTHESIA IN THE PAST. DENIES BEING ON CHRONIC ANTICOAGULATION and takes an NSAID every day. PATIENT DENIES KNOWN FAMILY HISTORY OF COLON POLYPS, COLON CANCER OR OTHER GI MALIGNANCIES. 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 Review of Systems Const All systems reviewed & are unremarkable except as noted in HPI and below Physical Exam Vital Signs: Last Vital Signs Pulse 76 09/10/23 11:15 BP 138/89 09/10/23 11:15 BMI result Body Mass Index 29.3 Const General: healthy appearing, no acute distress, anxious and other (Talkative) Nutritional Appearance: overweight Orientation/consciousness: patient oriented x3 Limitations: no limitations HEENT Head: Yes normal to inspection Ears: hearing grossly normal bilaterally Eyes Sclerae: sclerae normal Pupils: Equal, round and reactive pupils present Neck Neck: Yes normal visual inspection Chest Chest palpation & inspection: normal inspection of the chest Resp Effort & Inspection: normal respiratory effort Auscultation: clear to auscultation bilaterally Cardio Palpation: normal PMI Rate: regular rate Rhythm: regular rhythm Heart sounds: S1 normal heart sound present, S2 normal heart sound present and no murmurs GI Palpation (GI): Soft to palpation, nontender and No hepatosplenomegaly present Auscultation: normal bowel sounds Rectal Exam - Female: deferred Skin General skin exam: no rashes or lesions noted Neuro General: patient oriented x3, gait normal and moves all extremities Cranial nerves: Yes Equal, round and reactive pupils present Psych Appearance: grossly normal Mental Status: mental status grossly normal Assessment & Plan Assessment & Plan (1) GERD without esophagitis: Code(s): K21.9 - Gastro-esophageal reflux disease without esophagitis Category: Medical (2) Dysphagia, pharyngoesophageal phase: Code(s): R13.14 - Dysphagia, pharyngoesophageal phase Category: Medical (3) Helicobacter pylori gastritis: Comment: treated and FU H pylori stool antigen was negative Code(s): K29.70 - Gastritis, unspecified, without bleeding; B96.81 - Helicobacter pylori [H. pylori] as the cause of diseases classified elsewhere Category: Medical (4) Chronic constipation: Code(s): K59.09 - Other constipation Category: Medical (5) Colon cancer screening: Comment: 01/2020 Colonoscopy showed a 10-12 mm hyperplastic polyp and moderate diverticulosis seen in the sigmoid colon Repeat Colonoscopy is advised in 5 yrs due to positive FH of colon cancer (in a maternal cousin). Due 11/2024 Code(s): Z12.11 - Encounter for screening for malignant neoplasm of colon Category: Medical (6) Vitamin B12 deficiency: Code(s): E53.8 - Deficiency of other specified B group vitamins Category: Medical (7) Generalized abdominal pain: Code(s): R10.84 - Generalized abdominal pain Category: Medical Plan 53 YF with hypertension referred to GI with history of GERD, dysphagia, intermittent episodes of abdominal pain with diarrhea alternating with constipation. She was hospitalized and treated for diverticulitis in 2012. Past CT scan showed inflammatory changes in the splenic flexure and DC. Her symptoms and CT findings are likely due to IBD, ischemic colitis, recurrent diverticulitis. She can have associated IBS or celiac disease. Labs showed normal CRP, sed rate and iron studies. Vitamin B12 level was 200 - lower limit of normal and patient was advised to start oral vitamin B12 replacement. 02/06/2020 EGD AND COLONOSCOPY SHOWED: Endoscopy Findings: ESOPHAGUS: Tortuous esophagus with increased tertiary contractions without stricture - biopsies obtained from proximal esophagus to check for EOE. GE junction at 38 cms. No esophagitis or Barretts. STOMACH: Mild gastric erythema with a 6-7 mm gastric ulcer and multiple linear chronic appearing erosions - likely related to naproxen use. Biopsies were obtained from the ulcer and gastric antrum and were positive for H Pylori. Colonoscopy Findings: One 10-12 mm hyperplastic polyp removed and moderate diverticulosis seen in the sigmoid colon patient was treated with the amoxicillin, clarithromycin and omeprazole twice daily for H pylori gastritis in 01/2020. Follow-up stool test was positive for was H pylori antigen - she was re-treated with Bismuth, metronidazole and amoxicillin ( since she is allergic to doxycycline). Patient will be scheduled for an abdominal ultrasound to look for non radiopaque stones and a pelvic ultrasound to follow-up on uterine fibroids seen on past CT scan. 09/27/20 PELVIC US SHOWED: 1. Multiple hypoechoic foci in the uterine parenchyma, probable fibroids. Largest measures 2.6 cm. 2. Endometrial thickness 0.6 cm. Patient is postmenopausal. Please clinically correlate. If the patient is symptomatic, further evaluation would be needed. Pt was referred to OBGYn to followup on above pelvic ultrasound findings. Patient sees an OBGYN in [place] and will call the GI clinic with the name and address of the clinic for the referral. 03/19/23 Notes recurrent abdominal pain since she ran out of Omeprazole and refill sent Patient advised to take senna daily for a week for constipation and then p.r.n. 09/10/23 Pt complains of intermittent episodes of dysphagia - likely due to esophageal motility disorder/esophageal spasm and intermittent episodes of abdominal pain with diarrhea Pt was advised to: 1. Schedule a barium swallow 2. Eat slowly and chew her food well and take it with sips of fluids 3. Keep a log of episodes of abdominal pain and the foods which are associated with abdominal pain episodes 4. Take Dicyclomine prn for abdominal pain 5. To go to the ER if she has an episode of severe pain FU in 3 months (Fu of dysphagia, abd pain, constipation) Orders: Orders Comprehensive Met. Panel 09/10/23 R10.84 - Generalized abdominal pain, K59.09 - Other constipation Vitamin D 25-OH Total 09/10/23 R10.84 - Generalized abdominal pain, K59.09 - Other constipation Lipase 09/10/23 R10.84 - Generalized abdominal pain, K59.09 - Other constipation Calprotectin, Fecal 09/10/23 R10.84 - Generalized abdominal pain, K59.09 - Other constipation [place] barium swallow 09/10/23 R13.14 - Dysphagia, pharyngoesophageal phase C Reactive Protein 09/10/23 R10.84 - Generalized abdominal pain, K59.09 - Other constipation Complete Blood Count Auto Diff 09/10/23 R10.84 - Generalized abdominal pain, K59.09 - Other constipation Vitamin B12 and Folate 09/10/23 R10.84 - Generalized abdominal pain, K59.09 - Other constipation Medications: New dicyclomine 20 mg PO TID PRN 20 tabs 3RF abdominal pain 30 days R10.84 - Generalized abdominal pain Patient Instructions: 1. Schedule a barium swallow 2. Eat slowly and chew your food well and take it with sips of fluids 3. Keep a log of episodes of abdominal pain and the foods which are associated with abdominal pain episodes 4. Take Dicyclomine prn for abdominal pain 5. Please go to the ER if you have an episode of severe pain Coding Level of Care Code Est Pt Level 4 (51465) Diagnoses GERD without esophagitis K21.9 Dysphagia, pharyngoesophageal phase R13.14 Helicobacter pylori gastritis K29.70; B96.81 Chronic constipation K59.09 Colon cancer screening Z12.11 Vitamin B12 deficiency E53.8 Generalized abdominal pain R10.84 Time Spent (min) 27
[2023-09-10 11:15] VITALS: BP 138/89; PULSE 76; BMI 29.3
== END 2023-09-10 11:52 | disposition home or self-care (01) ==
PROVIDERS: PCP Physician Assistant Medical; Visit Provider Internal Medicine Gastroenterology
DX: K21.9 Gastro-esophageal reflux disease without esophagitis (principal); R13.14 Dysphagia, pharyngoesophageal phase; K29.70 Gastritis, unspecified, without bleeding; B96.81 Helicobacter pylori [H. pylori] as the cause of diseases classified elsewhere; K59.09 Other constipation; Z12.11 Encounter for screening for malignant neoplasm of colon; E53.8 Deficiency of other specified B group vitamins; R10.84 Generalized abdominal pain
CPT/HCPCS: 99499

== ENCOUNTER → 2023-09-10 11:00 | Outpatient (BNVA) | payer OTHER, SELFPAY | PROVIDERS: PCP Physician Assistant Medical; Visit Provider Internal Medicine Gastroenterology ==

== ENCOUNTER 2023-09-14 11:01 | Outpatient (AMB) | payer OTHER, SELFPAY ==
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
[2023-09-14 11:08] VITALS: BP 130/70; PULSE 69; RESP 14; O2SAT 99; BMI 30.3
== END 2023-09-14 12:01 | disposition home or self-care (01) ==
PROVIDERS: PCP Physician Assistant Medical; Visit Provider Anesthesiology
DX: G89.0 Central pain syndrome (principal); M54.2 Cervicalgia; M54.12 Radiculopathy, cervical region
CPT/HCPCS: 99214

== ENCOUNTER → 2023-09-14 11:01 | Outpatient (BNVA) | payer OTHER, SELFPAY | PROVIDERS: PCP Physician Assistant Medical; Visit Provider Anesthesiology ==

== ENCOUNTER 2023-09-29 11:06 | Outpatient (REF) | payer OTHER, SELFPAY ==
[2023-09-29 11:23] LABS: MANUAL DIFF FLAG NO
[2023-09-29 11:49] LABS: Basophils Percent Auto 0.5 % (0-2); Eosinophils Absolute Auto 0.1 X10*3/uL (0.0-0.4); Eosinophils Percent Auto 2.5 % (0-4); Hematocrit 37.6 % (37.0-47.0); Hemoglobin 12.5 g/dl (12.0-16.0); Imm Gran Abs Auto 0.01 X10*3/uL (0.00-0.03); Imm Gran Pct Auto 0.2 % (0.0-0.4); Lymphocytes Percent Auto 35.2 % (20-40); Mean Corpuscular HGB Conc 33.2 g/dl (31.0-35.0); Mean Corpuscular Hemoglobin 30.6 pg (27.0-33.0); Mean Corpuscular Volume 91.9 fL (80.0-98.0); Mean Platelet Volume 10.5 fL (9.4-12.3); Monocytes Absolute Auto 0.4 X10*3/uL (0.1-1.2); Monocytes Percent Auto 7.9 % (2-11); Neutrophils Percent Auto 53.7 % (45-73); Platelet Count 295 X10*3/uL (160-400); Red Blood Count 4.09 X10*6/uL (4.20-5.50); Red Cell Distribution Width 12.6 % (11.0-16.0); White Blood Count 5.6 X10*3/uL (4.8-10.8)
[2023-09-29 12:49] LABS: Alanine Aminotransferase 14 U/L (0-31); Albumin Level 4.3 g/dL (3.5-5.0); Alkaline Phosphatase 81 U/L (39-117); Anion Gap 12 (12-20); Aspartate Amino Transferase 20 U/L (5-31); Bilirubin Total 0.4 mg/dL (0.0-1.0); Blood Urea Nitrogen 10 mg/dL (9-16); C Reactive Protein < 0.10 mg/dL (< or = 0.50); Calcium 8.7 mg/dL (8.4-10.2); Carbon Dioxide 27 mmol/L (22-29); Chloride 108 mmol/L (96-108); Estimated Glomerular Filt Rate > 60; Glucose Random 93 mg/dL (60-115); Lipase 12 U/L (8-78); Potassium 3.9 mmol/L (3.3-5.1); Sodium 143 mmol/L (135-145); Total Protein 7.5 g/dL (6.5-8.0); Vitamin D 25-OH Total 5.8 ng/mL (>30)
[2023-09-29 13:07] LABS: Folate 7.3 ng/mL (> or = 4.0); Vitamin B12 217 pg/mL (200-900)
== END 2023-09-29 11:07 | disposition home or self-care (01) ==
LOC: HO.LAB 11:06
PROVIDERS: PCP Physician Assistant Medical; Visit Provider Internal Medicine Gastroenterology
DX: R10.84 Generalized abdominal pain (principal); K59.09 Other constipation
CPT/HCPCS: 36415; 80053; 82306; 82607; 82746; 83690; 85025; 86140

== ENCOUNTER 2023-09-29 12:04 | Outpatient (AMB) | payer OTHER, SELFPAY ==
[2023-09-29 12:07] VITALS: BMI 30.3
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
== END 2023-09-29 13:05 | disposition home or self-care (01) ==
PROVIDERS: PCP Physician Assistant Medical; Visit Provider Orthopaedic Surgery
DX: M65.311 Trigger thumb, right thumb (principal); M65.312 Trigger thumb, left thumb; G56.03 Carpal tunnel syndrome, bilateral upper limbs
CPT/HCPCS: 99024

== ENCOUNTER 2023-10-16 10:00 | Outpatient (RCR) | payer OTHER, SELFPAY ==
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
--- NOTE | 2023-09-29 13:59 | MHC.OT.OP ---
[address] [phone] F: [phone] Occupational Therapy Progress Note Patient Name: María Carranza Diagnosis: S/P R TRIGGER THUMB RELEASE Date of Surgery: 08/13/23 Date of Evaluation: 09/02/23 Treatments to Date: 6 Cancellations to Date: 1 No Shows to Date: 0 Subjective: Pt REPORTS WORSENING PAIN WITH FOLDING CLOTHES. PAIN AT REST 3/10 COMPLAINT FOR RADIAL WRIST PAIN > VOLAR THUMB COMPLAINT OF BILATERAL HAND NUMBNESS WITH HOLDING PHONE AND TEXTING. I BARELY USE THIS ONE (RIGHT HAND) I DON'T KNOW WHY I GET THE SWELLING. Pain Score: 7 Pain Location: R THUMB Objective Measures: OUTBOUND SALES ADVISOR R 20 LB L 30 LB LAT PINCH R 5 LB L 10 LB Status: Not Progressing Assessment: MARÍA REPORTS CONTINUED HIGH RIGHT THUMB AND RADIAL WRIST PAIN AT A 3-7 AND CONTINUED THUMB SWELLING. MILD THUMB IPJ EFFUSION NOTED SHE ALSO REPORTS BILATERAL HAND NUMBNESS WTH HOLDING HER PHONE AND TEXTING BUT BARELY USES THE RIGHT HAND IMPROVED HAND HYPERSENSISTIVITY NOTED WITH PALPATION AND THER EX OUTBOUND SALES ADVISOR AND PINCH STRENGTHS LOW AND SHE REPORTS MINIMAL IMPROVEMENT IN HER HAND FUNCTION WITH REQUIRING HER DAUGTHER TO STRAIGHTEN HER HAIR Short Term Goals: IND HEP MET WILL REPORT <5/10 PAIN AT REST MET IND USE OF HEAT/ICE MET IND EDEMA MANAGEMENT STRATEGIES KAPANDJI OPPOSITION TO 8/10 IND ADL CLOSURE BOARD Half-Way Goals: Pt TO TOLERATE 7 MINS OF ROUGH TEXTURES MET TOLERATE 10 POUND LIFT FLOOR TO WAIST WITH <4/10 PAIN R HAND GROSS GRASP >25 POUNDS QUICK DASH <70% Frequency and Duration: The patient will be seen 2X WK X 3 WKS Treatment Plan: Therapeutic Exercise Therapeutic Activity Home Exercise Program Patient Education Ultrasound Electronically Signed By: FRANCIS GONZALEZ OT CHT CLT Reviewed/agree with student documentation: N/A Therapist:
--- NOTE | 2023-10-21 09:57 | MHC.OT.DC ---
[address] [phone] F: [phone] Occupational Therapy Discharge Note Patient Name: María Carranza Provider: Dr Maribel Squires Diagnosis: S/P R TRIGGER THUMB RELEASE Date of Surgery: 08/13/23 Date of Evaluation: 09/02/23 Date of Discharge: 10/21/23 Treatments to Date: 8 Cancellations to Date: 1 No Shows to Date: 0 Discharge Summary: 2 months s/p trigger release, progressing w/ post-op course but is very limited in daily activities due to other RUE issues including forearm and shoulder pain, is undergoing neuro work-up. She has not returned to work yet and per PCP is holding return still. She continues to have moderate pain in right hand, specifically joint pain (D1 IP and MCP's) moreso than active pain w/ light use and range of thumb and wrist. She is Ind w/ her home program and has good follow through w/ joint protection and scar management of right thumb. At this time we have completed course of rehab for post-op trigger finger release and she is Ind w/ self management techniques, but will pursue further work-up for cont'd RUE pain. Electronically Signed By: MITCHEL Stanley/Mary CHT Reviewed/agree with student documentation: N/A Therapist: Please Sign and return to therapist, thank you for your referral.
== END 2023-10-21 10:26 | disposition home or self-care (01) ==
LOC: HO.OT 10:00
PROVIDERS: PCP Physician Assistant Medical; Visit Provider Orthopaedic Surgery
DX: M65.311 Trigger thumb, right thumb (principal)
CPT/HCPCS: 97035; 97110; 97140; 97166

== ENCOUNTER 2023-11-27 07:17 | Outpatient (AMB) | payer OTHER, SELFPAY ==
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
[2023-11-27 07:24] VITALS: BP 99/78; PULSE 79; BMI 30.1
== END 2023-11-27 08:08 | disposition home or self-care (01) ==
PROVIDERS: PCP Physician Assistant Medical; Visit Provider Internal Medicine Gastroenterology
DX: K21.9 Gastro-esophageal reflux disease without esophagitis (principal); R13.14 Dysphagia, pharyngoesophageal phase; K29.70 Gastritis, unspecified, without bleeding; B96.81 Helicobacter pylori [H. pylori] as the cause of diseases classified elsewhere; K59.09 Other constipation; Z12.11 Encounter for screening for malignant neoplasm of colon; R10.84 Generalized abdominal pain
CPT/HCPCS: 99214

== ENCOUNTER → 2023-11-27 07:17 | Outpatient (BNVA) | payer OTHER, SELFPAY | PROVIDERS: PCP Physician Assistant Medical; Visit Provider Internal Medicine Gastroenterology ==

== ENCOUNTER → 2024-04-13 10:09 | Outpatient (BNV) | payer OTHER, SELFPAY | PROVIDERS: PCP Physician Assistant Medical; Visit Provider Physician Assistant Surgical | DX: R13.10 Dysphagia, unspecified (principal) | CPT/HCPCS: 74221; 74246 ==

== ENCOUNTER 2024-04-13 10:10 | Outpatient (REF) | payer OTHER, SELFPAY ==
--- NOTE | ~2024-04-13 | FL_ITS ---
EXAMINATION: XR FLUOROSCOPY UPPER GI WITH AIR CLINICAL INFORMATION: Dysphagia. COMPARISON: None TECHNIQUE: Fluoroscopic air contrast upper GI examination was performed utilizing standard techniques with thin and thick barium and effervescent granules. Numerous spot images were obtained. FINDINGS: Mild reversal of the cervical lordosis, nonspecific. Lateral cine images of the oropharynx and hypopharynx demonstrate normal swallow mechanism with normal epiglottic inversion and soft palate elevation. No tracheal penetration, glottic or subglottic aspiration identified. No nasopharyngeal reflux present. Hypopharyngeal structures appear normal without evidence of mass or diverticulum. There was no significant cricopharyngeal achalasia. Dual and single contrast images of the esophagus demonstrate a normal caliber, contour, and mucosal pattern. No evidence of stricture, mass, or ulcerations identified. Esophageal peristalsis was normal. A tiny type I hiatal hernia is present. No significant gastroesophageal reflux was seen during the course of the examination and on reflux views. Dual contrast and single contrast images of the stomach demonstrated a normal contour. The gastric rugal folds have a mildly thickened appearance, suggestive of gastritis. There are multiple focal areas of contrast pooling in the fundus of the stomach that may represent small superficial aphthous ulcers. Contrast freely passed into the gastric antrum and duodenal bulb without delay. Single and air-contrast images of the duodenal bulb demonstrate no abnormality. The duodenal sweep has a normal appearance, course, and mucosal fold appearance. FLUOROSCOPY TIME: 3 minutes 42 seconds Number of Spot Images: 7 Number of Cine: 16 DOSE AREA PRODUCT: 1755 uGy-m2 (microgray-meter squared) FL/FL barium swallow with air IMPRESSION: 1. Tiny type I hiatal hernia. 2. Thickened appearance of the gastric rugal folds. In addition there are multiple focal areas of contrast pooling in the fundus of the stomach. These findings are suggestive of erosive gastritis. Recommend correlation with EGD. This procedure was performed by Didier Garza PA-C, and supervised by Dr. Escobar Electronically signed by: Philippe Escobar MD 04/14/2024 03:08 PM EDT
== END 2024-04-13 10:11 | disposition home or self-care (01) ==
LOC: HO.XRAY 10:10
PROVIDERS: PCP Physician Assistant Medical; Visit Provider Internal Medicine Gastroenterology
DX: R13.14 Dysphagia, pharyngoesophageal phase (principal)
CPT/HCPCS: 74221

== ENCOUNTER 2024-06-23 09:23 | Outpatient (AMB) | payer OTHER, SELFPAY ==
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
[2024-06-23 10:03] VITALS: BP 144/91; PULSE 88; BMI 29.1
== END 2024-06-23 10:39 | disposition home or self-care (01) ==
PROVIDERS: PCP Physician Assistant Medical; Visit Provider Internal Medicine Gastroenterology
DX: K21.9 Gastro-esophageal reflux disease without esophagitis (principal); R13.14 Dysphagia, pharyngoesophageal phase; K29.70 Gastritis, unspecified, without bleeding; B96.81 Helicobacter pylori [H. pylori] as the cause of diseases classified elsewhere; K59.09 Other constipation; E53.8 Deficiency of other specified B group vitamins; Z12.11 Encounter for screening for malignant neoplasm of colon; R10.84 Generalized abdominal pain; R11.0 Nausea
CPT/HCPCS: 99499

== ENCOUNTER 2024-08-04 10:58 | Outpatient (REF) | payer OTHER, SELFPAY | END 2024-08-04 10:59 | disposition home or self-care (01) | LOC: HO.LAB 10:58 | PROVIDERS: PCP Physician Assistant Medical; Visit Provider Internal Medicine Gastroenterology | DX: Z13.89 Encounter for screening for other disorder (principal) ==

== ENCOUNTER 2024-09-02 10:30 | Emergency (ER) | payer OTHER, SELFPAY ==
--- NOTE | ~2024-09-02 | CT_ITS ---
EXAMINATION: CT ABDOMEN PELVIS WITH IV CONTRAST HISTORY: abd pain, N/V/D COMPARISON: Comparison is made with the prior examination dated 04/17/2022. TECHNIQUE: CT scan of the abdomen and pelvis was performed following administration of 85 mL Omnipaque 350 using standard departmental protocol. Coronal and sagittal reformatted images were generated and reviewed. Oral contrast material was not administered at the request of the referring physician. This CT exam was performed with one or more of the following dose reduction techniques: automated exposure control, adjustment of the mA and/or kV according to patient size, use of iterative reconstruction technique. DLP: 448 mGy-cm FINDINGS: LOWER CHEST: The visualized lung bases are clear. There is no pleural effusion. CARDIOVASCULATURE: The heart is normal in size. There is no pericardial effusion. LIVER: The liver is normal in size and contour. No liver mass is identified. There is focal fatty infiltration adjacent to the fissure for ligamentum teres.. The hepatic and portal veins are patent. GALLBLADDER / BILE DUCTS: The gallbladder is unremarkable. There is no intra or extrahepatic biliary ductal dilatation. SPLEEN: The spleen is normal in size. No focal splenic lesion is identified. PANCREAS: The pancreas is unremarkable in appearance. ADRENAL GLANDS: Within normal limits. KIDNEYS/RETROPERITONEUM: No renal calculi are identified. There is no hydronephrosis. No renal masses are identified. LYMPH NODES: No abdominal or pelvic lymphadenopathy. VASCULATURE: The abdominal aorta is normal in caliber. MESENTERY/PERITONEUM: No free fluid. No masses. There is no free intraperitoneal gas. STOMACH: The stomach is collapsed, limiting evaluation. SMALL BOWEL: The small bowel is normal in caliber. COLON: The colon is unremarkable. APPENDIX: Normal. URINARY BLADDER/PELVIC ORGANS: The urinary bladder is unremarkable. There is a 1.3 cm calcified uterine fibroid. BONES / SOFT TISSUES: There is degenerative disc disease of the spine. CT/CT abdomen pelvis w IV con IMPRESSION: No inflammatory process is identified in the abdomen or pelvis. Electronically signed by: Vitaly Che MD 09/02/2024 02:01 PM EDT
[2024-09-02 10:39] VITALS: BP 139/101; PULSE 95; RESP 18; TEMP 36.9; O2SAT 97; BMI 28.5
--- NOTE | 2024-09-02 10:40 | ED.ABDPAIN ---
HPI - Abdominal Pain General Chief Complaint: Abdominal Pain Stated Complaint: Flu Symptoms Time Seen by Provider: 09/02/24 11:44 Source: patient Mode of arrival: ambulatory Limitations: no limitations History of Present Illness HPI narrative: This is a 54yof with a pmhx of MS, carpal tunnel syndrome, depression, chronic constipation/abdominal pain, HTN, H. pylori, GERD, dysphagia who presents for evaluation of abdominal pain, decreased oral intake and postprandial vomiting. She states that a couple of weeks ago she started getting sick and was diagnosed with Flu B at the end of July. She states having headache, myalgias, fevers, chills, headache, cough and congestion. She states she later developed nausea/vomiting and diarrhea as well. She states being prescribed medications for her nausea and abdominal, which she reports has not helped. She states continuing to experience subjective fevers, chills, headache and lightheadedness. She states she has lost at least 10 lbs during the last several weeks. She states she often vomiting after eating, but states she has made some adjustments to her diet and she has tolerated oral intake. She states she does have an appetite and feels hungry. She states feeling weak. She states no chest pain, dyspnea, palpitations, syncope, back pain, dysuria, urinary frequency, melena or hematochezia. She states no recent antibiotics. Related Data Home Medications ?Medication ?Instructions ?Recorded ?Confirmed albuterol sulfate 2.5 mg/3 mL 1 mg inhalation Q6H PRN Shortness 12/31/21 06/23/24 (0.083 %) solution for nebulization Of Breath duloxetine 60 mg capsule,delayed 60 mg PO DAILY 03/19/23 06/23/24 release lisinopril 40 mg tablet 40 mg PO DAILY 03/19/23 06/23/24 tramadol 50 mg tablet 50 mg PO DAILY PRN pain 06/23/24 06/23/24 Previous Rx's ?Medication ?Instructions ?Recorded acetaminophen 500 mg capsule 500 mg PO QID PRN fever or pain 06/23/21 #14 caps albuterol sulfate 90 mcg/actuation 2 puff inhalation QID PRN 06/28/23 aerosol inhaler shortness of breath or wheezing #8.5 grams sennosides 8.6 mg-docusate sodium 2 tab-cap (2 x 8.6-50 mg) PO 11/27/23 50 mg tablet (Senna with Docusate BEDTIME 60 days #120 tabs Sodium) omeprazole 20 mg capsule,delayed 20 mg PO DAILY 90 days #90 caps 04/12/24 release dicyclomine 20 mg tablet 20 mg PO TID PRN for abdominal 05/05/24 pain #20 tabs ondansetron 4 mg disintegrating 4 mg PO Q8H PRN nausea and 06/23/24 tablet vomiting 30 days #30 tabs cholecalciferol (vitamin D3) 25 25 mcg PO DAILY 90 days #90 caps 06/27/24 mcg (1,000 unit) capsule Allergies Allergy/AdvReac Type Severity Reaction Status Date / Time doxycycline Allergy Unknown Itching Verified 09/02/24 10:40 oxycodone Allergy Unknown Itching Verified 09/02/24 10:40 Tylox Allergy Unknown Itching Uncoded 09/29/23 12:08 Review of Systems Review of Systems ROS as per [facility]PI [facility] Past Medical History Medical History (Updated 09/02/24 @ 14:24 by Jarett Reyes MD) Multiple sclerosis GERD (gastroesophageal reflux disease) Anxiety Asthma Hypertension Diverticulitis Surgical History History of hand surgery History of carpal tunnel release (01/15/23) Hx of endoscopy History of colonoscopy Family History Family History Father Alive and well Mother Hx of diabetes insipidus Social History Social History Household Members: Family, Children and Other Alcohol intake: current Alcohol intake frequency: does not drink Patient Tobacco Use Status: Never used Tobacco Substance Use Type: Marijuana Advance Directives: No Advance Directives Information Provided: Yes Do you have a plan to hurt others: No Plan Current occupational status: employed 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 Physical Exam ED Vital Signs: Vital Signs - 24 hr 09/02/24 10:39 Temperature 98.4 F Pulse Rate 95 Respiratory Rate 18 Blood Pressure 139/101 H Pulse Oximetry 97 BMI result Body Mass Index 28.5 Gen: NAD, AOx3 HEENT: NCAT, EOMI, normal conjunctiva CV: RRR Pulm: CTAB, no increased work of breathing GI: Soft, NTND, no rebound, guarding or rigidity Neuro: Grossly non focal Course Course Course Narrative: 54 yo female with PMH of MS, carpal tunnel syndrome, depression, chronic constipation/abdominal pain, HTN, asthma, H pylori, GERD, dysphagia - here with 1 month c/o liquid and food with postprandial vomiting and pylori. Also just had flu B dx [facility] - since then n/v and not feeling well. She reports no abx in last month but states she has chronic loose stools. She reports subjective fevers and chills feels weak and dizzy. She c/o every time she eats she has n/v/d and abdominal pain. She has had EGD/colonoscpy 2019 [address] Stokes office. At this time will order labs and defer rest of work up to primary provider. this is a RAPID medical screening exam the rest of the history and physical exam is to be done by the main provider. RUTHIE Medical Decision Making Medical Decision Making [facility] Narrative: Differential diagnosis includes, but is not limited to gastroenteritis, bowel obstruction, malignancy, chronic abdominal pain, viral syndrome, acute kidney injury, electrolyte abnormality. Patient is afebrile and hemodynamically stable on room air. Exam is benign and reassuring. I reviewed the patient's labs, urine studies and CT were treatment as below. Patient was treated supportively with 1.25 mg IV droperidol. On re-examination, patient is well-appearing and in no acute distress. ?Patient states symptoms have resolved and she states feeling well. She is eager to go home. ?There is no indication for further emergent evaluation in this otherwise well-appearing patient as above. ?Patient is provided written and verbal instructions, educational materials, recommendations for outpatient follow-up, strict return precautions and teach back is performed. ?Patient states understanding and agreement with plan of care. ?Patient is discharged home in stable and improved condition. Admission/Observation Consideration of admission/observation: Escalation of care including admission/observation considered Lab Data [facility] Lab Attestation statement: I reviewed the patient's lab results. I independently reviewed and interpreted the patient's CBC, metabolic panel and urinalysis, which are benign and reassuring. 09/02/24 10:59 09/02/24 10:59 Labs: Lab Results 09/02/24 09/02/24 Range/Units 10:59 11:10 WBC 8.1 (4.8-10.8) X10*3/uL RBC 4.38 (4.20-5.50) X10*6/uL Hgb 13.3 (12.0-16.0) g/dl Hct 39.9 (37.0-47.0) % MCV 91.1 (80.0-98.0) fL MCH 30.4 (27.0-33.0) pg MCHC 33.3 (31.0-35.0) g/dl RDW 12.5 (11.0-16.0) % Plt Count 274 (160-400) X10*3/uL MPV 10.8 (9.4-12.3) fL Immature Gran % (Auto) 0.4 (0.0-0.4) % Neut % (Auto) 56.7 (45-73) % Lymph % (Auto) 33.3 (20-40) % [place] % (Auto) 7.4 (2-11) % Eos % (Auto) 1.8 (0-4) % Baso % (Auto) 0.4 (0-2) % Lymph # (Auto) 2.7 (1.2-4.9) X10*3/uL [place] # (Auto) 0.6 (0.1-1.2) X10*3/uL Eos # (Auto) 0.2 (0.0-0.4) X10*3/uL Baso # (Auto) 0.0 (0.0-0.2) X10*3/uL Abs Immat Gran (auto) 0.03 (0.00-0.03) X10*3/uL Absolute Neuts (auto) 4.6 (2.0-8.3) x10*3/uL Absolute Nucleated RBC 0.000 (0.0-0.012) X10*3/uL Nucleated RBC % (auto) 0.0 (0.0-0.2) /100WBC ESR 16 (0-20) MM/HR Sodium 143 (135-145) mmol/L Potassium 3.7 (3.3-5.1) mmol/L Chloride 111 H (96-108) mmol/L Carbon Dioxide 25 (22-29) mmol/L Anion Gap 11 L (12-20) BUN 11 (9-16) mg/dL Creatinine 0.58 (0.5-1.4) mg/dL Estim Creat Clear Calc 90.1 Estimated GFR > 60 Random Glucose 84 (60-115) mg/dL Calcium 8.9 (8.4-10.2) mg/dL Magnesium 1.8 (1.6-2.6) mg/dL Total Bilirubin 0.3 (0.0-1.0) mg/dL Direct Bilirubin 0.2 (0.0-0.5) mg/dL AST 22 (5-31) U/L ALT 19 (0-31) U/L Alkaline Phosphatase 86 (39-117) U/L C-Reactive Protein < 0.10 (< or = 0.50) mg/dL Total Protein 7.6 (6.5-8.0) g/dL Albumin 4.2 (3.5-5.0) g/dL Lipase 28 (8-78) U/L Urine Color Dark Yellow Urine Appearance Clear Urine pH 5.5 (5.0-9.0) Ur Specific [place] 1.025 (1.005-1.025) Urine Protein 30 (1+) H (Neg-Trace) mg/dL Urine Glucose (UA) Negative (Negative) mg/dL Urine Ketones Trace (Negative) mg/dL Urine Blood Negative (Negative) Urine Nitrite Negative (Negative) Ur Leukocyte Esterase Negative (Negative) Urine RBC 0-2 (0-2) /HPF Urine WBC 0-5 (0-5) /HPF Ur Squamous Epith Cells 0-2 (0-2) /HPF Urine Bacteria None Seen (None Seen) Hyaline Casts 0-2 (0-2) /LPF Radiology Impression Discussion of test interpretation with radiology: I have reviewed the radiologist's reading. Radiologist Impression: [place] [id number] CT Scan Report Signed Patient: María Carranza MR#: [id number] : 1970 Acct:[id number] Age/Sex: 54 / F ADM Date: 09/02/24 Loc: .ED Attending Dr: Ordering Physician: Jarett Reyes MD Date of Service: 09/02/24 Procedure(s): CT abdomen pelvis w IV con Accession Number(s): [id number] cc: Yin Flores PA-C; Jarett Reyes MD~ Report Number: [id number]: Total DLP = 448.00 mGy-cm EXAMINATION: CT ABDOMEN PELVIS WITH IV CONTRAST HISTORY: abd pain, N/V/D COMPARISON: Comparison is made with the prior examination dated 04/17/2022. TECHNIQUE: CT scan of the abdomen and pelvis was performed following administration of 85 mL Omnipaque 350 using standard departmental protocol. Coronal and sagittal reformatted images were generated and reviewed. Oral contrast material was not administered at the request of the referring physician. This CT exam was performed with one or more of the following dose reduction techniques: automated exposure control, adjustment of the mA and/or kV according to patient size, use of iterative reconstruction technique. DLP: 448 mGy-cm FINDINGS: LOWER CHEST: The visualized lung bases are clear. There is no pleural effusion. CARDIOVASCULATURE: The heart is normal in size. There is no pericardial effusion. LIVER: The liver is normal in size and contour. No liver mass is identified. There is focal fatty infiltration adjacent to the fissure for ligamentum teres.. The hepatic and portal veins are patent. GALLBLADDER / BILE DUCTS: The gallbladder is unremarkable. There is no intra or extrahepatic biliary ductal dilatation. SPLEEN: The spleen is normal in size. No focal splenic lesion is identified. PANCREAS: The pancreas is unremarkable in appearance. ADRENAL GLANDS: Within normal limits. KIDNEYS/RETROPERITONEUM: No renal calculi are identified. There is no hydronephrosis. No renal masses are identified. LYMPH NODES: No abdominal or pelvic lymphadenopathy. VASCULATURE: The abdominal aorta is normal in caliber. MESENTERY/PERITONEUM: No free fluid. No masses. There is no free intraperitoneal gas. STOMACH: The stomach is collapsed, limiting evaluation. SMALL BOWEL: The small bowel is normal in caliber. COLON: The colon is unremarkable. APPENDIX: Normal. URINARY BLADDER/PELVIC ORGANS: The urinary bladder is unremarkable. There is a 1.3 cm calcified uterine fibroid. BONES / SOFT TISSUES: There is degenerative disc disease of the spine. CT/CT abdomen pelvis w IV con IMPRESSION: No inflammatory process is identified in the abdomen or pelvis. Electronically signed by: Vitaly Che MD 09/02/2024 02:01 PM EDT Dictated By: Vitaly Che MD Signed By: <Electronically signed by Vitaly Che MD in OV> 09/02/24 1401 Medications Administered Discontinued Medications Generic Name Dose Route Start Last Admin Trade Name Freq PRN Reason Stop Dose Admin Droperidol 1.25 mg 09/02/24 12:35 09/02/24 13:21 Droperidol 5 Mg/2 Ml Vial IVPUSH 09/02/24 12:36 1.25 mg ONCE ONE Administration Sodium Chloride 1,000 mls @ 999 mls/hr 09/02/24 12:45 09/02/24 13:21 Ns IV 09/02/24 13:45 999 mls/hr .Q1H1M RAMYA Administration Iohexol 100 ml 09/02/24 13:39 09/02/24 13:39 Iohexol 350 Mg/Ml 100 Ml Infus..Btl IV 09/02/24 13:40 85 ml ONCE ONE Administration Discharge Plan Discharge Clinical Impression: Generalized abdominal pain, Nausea, vomiting, and diarrhea Patient Disposition: Home, Self-Care Instructions: Abdominal Pain (ED) Additional Instructions: You were seen and evaluated in the emergency room. Your emergency room evaluation including vital signs, blood work, urine studies and CT scans were all very reassuring with no emergent or surgical findings. You were safely be discharged home and follow up with your regular doctors. Please follow-up with your primary care doctor in the next 5-7 days. ? Please return to the emergency room if you develop any worsening symptoms. Prescriptions: No Action omeprazole 20 mg capsule,delayed release(DR/EC) 20 mg PO DAILY 90 Days Qty: 90 1RF dicyclomine 20 mg tablet 20 mg PO TID PRN (Reason: for abdominal pain) Qty: 20 3RF cholecalciferol (vitamin D3) 25 mcg (1,000 unit) capsule 25 mcg PO DAILY 90 Days Qty: 90 1RF acetaminophen 500 mg capsule 500 mg PO QID PRN (Reason: fever or pain) Qty: 14 0RF albuterol sulfate 90 mcg/actuation HFA aerosol inhaler 2 puff inhalation QID PRN (Reason: shortness of breath or wheezing) Qty: 8.5 0RF albuterol sulfate 2.5 mg /3 mL (0.083 %) solution for nebulization 1 mg inhalation Q6H PRN (Reason: Shortness Of Breath) lisinopril 40 mg tablet 40 mg PO DAILY duloxetine 60 mg capsule,delayed release(DR/EC) 60 mg PO DAILY sennosides-docusate sodium [Senna with Docusate Sodium] 8.6-50 mg tablet 2 tab-cap PO BEDTIME 60 Days Qty: 120 2RF Rx Instructions: Please 1-2 tab/caps every day at bedtime tramadol 50 mg tablet 50 mg PO DAILY PRN (Reason: pain) ondansetron 4 mg tablet,disintegrating 4 mg PO Q8H PRN (Reason: nausea and vomiting) 30 Days Qty: 30 3RF Print Language: Latvian
[2024-09-02 11:16] LABS: Appearance Urine Clear; Color Urine Dark Yellow; Glucose Urine UA Negative (Negative); Leukocyte Esterase Urine Negative (Negative); Nitrite Urine Negative (Negative); PH 5.5 (5.0-9.0); Specific Gravity - Urine 1.025 (1.005-1.025); UMIC TRIGGER UACC YES; Urine Blood Negative (Negative); Urine Ketones Trace mg/dL (Negative); Urine Protein 30 (1+) mg/dL (Neg-Trace)
--- NOTE | 2024-09-02 11:21 | MHC.EDTECH ---
lab draw collected and sent to lab at 1059 am. unprocessed at this time
[2024-09-02 11:23] LABS: MANUAL DIFF FLAG NO
[2024-09-02 11:24] LABS: Basophils Percent Auto 0.4 % (0-2); Eosinophils Absolute Auto 0.2 X10*3/uL (0.0-0.4); Eosinophils Percent Auto 1.8 % (0-4); Hematocrit 39.9 % (37.0-47.0); Hemoglobin 13.3 g/dl (12.0-16.0); Imm Gran Abs Auto 0.03 X10*3/uL (0.00-0.03); Imm Gran Pct Auto 0.4 % (0.0-0.4); Lymphocytes Absolute Auto 2.7 X10*3/uL (1.2-4.9); Lymphocytes Percent Auto 33.3 % (20-40); Mean Corpuscular HGB Conc 33.3 g/dl (31.0-35.0); Mean Corpuscular Hemoglobin 30.4 pg (27.0-33.0); Mean Corpuscular Volume 91.1 fL (80.0-98.0); Mean Platelet Volume 10.8 fL (9.4-12.3); Monocytes Absolute Auto 0.6 X10*3/uL (0.1-1.2); Monocytes Percent Auto 7.4 % (2-11); Neutrophils Absolute Auto 4.6 x10*3/uL (2.0-8.3); Neutrophils Percent Auto 56.7 % (45-73); Platelet Count 274 X10*3/uL (160-400); Red Blood Count 4.38 X10*6/uL (4.20-5.50); Red Cell Distribution Width 12.5 % (11.0-16.0); White Blood Count 8.1 X10*3/uL (4.8-10.8)
[2024-09-02 11:29] LABS: Bacteria Urine None Seen (None Seen); Hyaline Casts Urine 0-2 /LPF (0-2); RBC Urine 0-2 /HPF (0-2); Squamous Epithelial Cell Urine 0-2 /HPF (0-2); WBC Urine 0-5 /HPF (0-5)
[2024-09-02 11:39] LABS: Alanine Aminotransferase 19 U/L (0-31); Albumin Level 4.2 g/dL (3.5-5.0); Alkaline Phosphatase 86 U/L (39-117); Anion Gap 11 (12-20); Aspartate Amino Transferase 22 U/L (5-31); Bilirubin Direct 0.2 mg/dL (0.0-0.5); Bilirubin Total 0.3 mg/dL (0.0-1.0); Blood Urea Nitrogen 11 mg/dL (9-16); C Reactive Protein < 0.10 mg/dL (< or = 0.50); Calcium 8.9 mg/dL (8.4-10.2); Carbon Dioxide 25 mmol/L (22-29); Chloride 111 mmol/L (96-108); Creatinine Clr Calc Pharmacy 90.1; Estimated Glomerular Filt Rate > 60; Glucose Random 84 mg/dL (60-115); Lipase 28 U/L (8-78); Magnesium 1.8 mg/dL (1.6-2.6); Potassium 3.7 mmol/L (3.3-5.1); Sodium 143 mmol/L (135-145); Total Protein 7.6 g/dL (6.5-8.0)
[2024-09-02 12:03] LABS: Erythrocyte Sedimentation Rate 16 MM/HR (0-20)
--- NOTE | 2024-09-02 12:36 | ED.GENADULT ---
HPI - General Adult General Chief complaint: Abdominal Pain Stated complaint: Flu Symptoms Time Seen by Provider: 09/02/24 11:44 History of Present Illness HPI narrative: Note created in error. Please see my complete and full note from today 1040. Related Data Home Medications ?Medication ?Instructions ?Recorded ?Confirmed albuterol sulfate 2.5 mg/3 mL 1 mg inhalation Q6H PRN Shortness 12/31/21 06/23/24 (0.083 %) solution for nebulization Of Breath duloxetine 60 mg capsule,delayed 60 mg PO DAILY 03/19/23 06/23/24 release lisinopril 40 mg tablet 40 mg PO DAILY 03/19/23 06/23/24 tramadol 50 mg tablet 50 mg PO DAILY PRN pain 06/23/24 06/23/24 Previous Rx's ?Medication ?Instructions ?Recorded acetaminophen 500 mg capsule 500 mg PO QID PRN fever or pain 06/23/21 #14 caps albuterol sulfate 90 mcg/actuation 2 puff inhalation QID PRN 06/28/23 aerosol inhaler shortness of breath or wheezing #8.5 grams sennosides 8.6 mg-docusate sodium 2 tab-cap (2 x 8.6-50 mg) PO 11/27/23 50 mg tablet (Senna with Docusate BEDTIME 60 days #120 tabs Sodium) omeprazole 20 mg capsule,delayed 20 mg PO DAILY 90 days #90 caps 04/12/24 release dicyclomine 20 mg tablet 20 mg PO TID PRN for abdominal 05/05/24 pain #20 tabs ondansetron 4 mg disintegrating 4 mg PO Q8H PRN nausea and 06/23/24 tablet vomiting 30 days #30 tabs cholecalciferol (vitamin D3) 25 25 mcg PO DAILY 90 days #90 caps 06/27/24 mcg (1,000 unit) capsule Allergies Allergy/AdvReac Type Severity Reaction Status Date / Time doxycycline Allergy Unknown Itching Verified 09/02/24 10:40 oxycodone Allergy Unknown Itching Verified 09/02/24 10:40 Tylox Allergy Unknown Itching Uncoded 09/29/23 12:08 [facility] Past Medical History Medical History (Updated 09/02/24 @ 14:24 by Jarett Reyes MD) Multiple sclerosis GERD (gastroesophageal reflux disease) Anxiety Asthma Hypertension Diverticulitis Surgical History History of hand surgery History of carpal tunnel release (01/15/23) Hx of endoscopy History of colonoscopy Family History Family History Father Alive and well Mother Hx of diabetes insipidus Social History Social History Household Members: Family, Children and Other Alcohol intake: current Alcohol intake frequency: does not drink Patient Tobacco Use Status: Never used Tobacco Substance Use Type: Marijuana Advance Directives: No Advance Directives Information Provided: Yes Do you have a plan to hurt others: No Plan Current occupational status: employed 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Q1H1M RAMYA Administration Iohexol 100 ml 09/02/24 13:39 09/02/24 13:39 Iohexol 350 Mg/Ml 100 Ml Infus..Btl IV 09/02/24 13:40 85 ml ONCE ONE Administration Medical Decision Making Lab Data 09/02/24 10:59 09/02/24 10:59 Labs: Lab Results 09/02/24 09/02/24 Range/Units 10:59 11:10 WBC 8.1 (4.8-10.8) X10*3/uL RBC 4.38 (4.20-5.50) X10*6/uL Hgb 13.3 (12.0-16.0) g/dl Hct 39.9 (37.0-47.0) % MCV 91.1 (80.0-98.0) fL MCH 30.4 (27.0-33.0) pg MCHC 33.3 (31.0-35.0) g/dl RDW 12.5 (11.0-16.0) % Plt Count 274 (160-400) X10*3/uL MPV 10.8 (9.4-12.3) fL Immature Gran % (Auto) 0.4 (0.0-0.4) % Neut % (Auto) 56.7 (45-73) % Lymph % (Auto) 33.3 (20-40) % [place] % (Auto) 7.4 (2-11) % Eos % (Auto) 1.8 (0-4) % Baso % (Auto) 0.4 (0-2) % Lymph # (Auto) 2.7 (1.2-4.9) X10*3/uL [place] # (Auto) 0.6 (0.1-1.2) X10*3/uL Eos # (Auto) 0.2 (0.0-0.4) X10*3/uL Baso # (Auto) 0.0 (0.0-0.2) X10*3/uL Abs Immat Gran (auto) 0.03 (0.00-0.03) X10*3/uL Absolute Neuts (auto) 4.6 (2.0-8.3) x10*3/uL Absolute Nucleated RBC 0.000 (0.0-0.012) X10*3/uL Nucleated RBC % (auto) 0.0 (0.0-0.2) /100WBC ESR 16 (0-20) MM/HR Sodium 143 (135-145) mmol/L Potassium 3.7 (3.3-5.1) mmol/L Chloride 111 H (96-108) mmol/L Carbon Dioxide 25 (22-29) mmol/L Anion Gap 11 L (12-20) BUN 11 (9-16) mg/dL Creatinine 0.58 (0.5-1.4) mg/dL Estim Creat Clear Calc 90.1 Estimated GFR > 60 Random Glucose 84 (60-115) mg/dL Calcium 8.9 (8.4-10.2) mg/dL Magnesium 1.8 (1.6-2.6) mg/dL Total Bilirubin 0.3 (0.0-1.0) mg/dL Direct Bilirubin 0.2 (0.0-0.5) mg/dL AST 22 (5-31) U/L ALT 19 (0-31) U/L Alkaline Phosphatase 86 (39-117) U/L C-Reactive Protein < 0.10 (< or = 0.50) mg/dL Total Protein 7.6 (6.5-8.0) g/dL Albumin 4.2 (3.5-5.0) g/dL Lipase 28 (8-78) U/L Urine Color Dark Yellow Urine Appearance Clear Urine pH 5.5 (5.0-9.0) Ur Specific [place] 1.025 (1.005-1.025) Urine Protein 30 (1+) H (Neg-Trace) mg/dL Urine Glucose (UA) Negative (Negative) mg/dL Urine Ketones Trace (Negative) mg/dL Urine Blood Negative (Negative) Urine Nitrite Negative (Negative) Ur Leukocyte Esterase Negative (Negative) Urine RBC 0-2 (0-2) /HPF Urine WBC 0-5 (0-5) /HPF Ur Squamous Epith Cells 0-2 (0-2) /HPF Urine Bacteria None Seen (None Seen) Hyaline Casts 0-2 (0-2) /LPF Discharge Plan Discharge Clinical Impression: Generalized abdominal pain, Nausea, vomiting, and diarrhea Patient Disposition: Home, Self-Care Instructions: Abdominal Pain (ED) Additional Instructions: You were seen and evaluated in the emergency room. Your emergency room evaluation including vital signs, blood work, urine studies and CT scans were all very reassuring with no emergent or surgical findings. You were safely be discharged home and follow up with your regular doctors. Please follow-up with your primary care doctor in the next 5-7 days. ? Please return to the emergency room if you develop any worsening symptoms. Prescriptions: No Action omeprazole 20 mg capsule,delayed release(DR/EC) 20 mg PO DAILY 90 Days Qty: 90 1RF dicyclomine 20 mg tablet 20 mg PO TID PRN (Reason: for abdominal pain) Qty: 20 3RF cholecalciferol (vitamin D3) 25 mcg (1,000 unit) capsule 25 mcg PO DAILY 90 Days Qty: 90 1RF acetaminophen 500 mg capsule 500 mg PO QID PRN (Reason: fever or pain) Qty: 14 0RF albuterol sulfate 90 mcg/actuation HFA aerosol inhaler 2 puff inhalation QID PRN (Reason: shortness of breath or wheezing) Qty: 8.5 0RF albuterol sulfate 2.5 mg /3 mL (0.083 %) solution for nebulization 1 mg inhalation Q6H PRN (Reason: Shortness Of Breath) lisinopril 40 mg tablet 40 mg PO DAILY duloxetine 60 mg capsule,delayed release(DR/EC) 60 mg PO DAILY sennosides-docusate sodium [Senna with Docusate Sodium] 8.6-50 mg tablet 2 tab-cap PO BEDTIME 60 Days Qty: 120 2RF Rx Instructions: Please 1-2 tab/caps every day at bedtime tramadol 50 mg tablet 50 mg PO DAILY PRN (Reason: pain) ondansetron 4 mg tablet,disintegrating 4 mg PO Q8H PRN (Reason: nausea and vomiting) 30 Days Qty: 30 3RF Interventions: ED Discharge Assessment Last Done: 09/02/24 14:44 Discharge Date/Time: 09/02/24 14:45 Print Language: Citizen Of [place]
--- NOTE | 2024-09-02 13:00 | PC.NURSE ---
Awaiting missing Droperidol per pharmacy at this time.
[2024-09-02] MEDS: droPERidol 5 MG/2 ML VIAL 1.25 MG IVPUSH (13:21)
[2024-09-02] MEDS: 0.9 % Sodium Chloride 1,000 ML 999 ML IV (13:21)
[2024-09-02] MEDS: iohexoL 350 MG/ML 100 ML INFUS..BTL IV (13:39)
[2024-09-02 14:44] VITALS: BP 139/101; PULSE 95; RESP 18; TEMP 36.9; O2SAT 97
--- NOTE | 2024-09-02 14:44 | PC.NURSE ---
Pt. requesting to leave. States that she feels better s/p receiving Droperidol, and does not want to stay.
== END 2024-09-02 14:45 | disposition home or self-care (01) ==
PROVIDERS: Emergency Medicine; Emergency Provider Emergency Medicine; PCP Physician Assistant Medical
DX: R10.2 Pelvic and perineal pain (principal); R11.2 Nausea with vomiting, unspecified; R19.7 Diarrhea, unspecified; Z79.899 Other long term (current) drug therapy
CPT/HCPCS: 36415; 74177; 80048; 80076; 81001; 83690; 83735; 85025; 85652; 86140; 96374; 99283; 99284; J1790; Q9967

== ENCOUNTER → 2024-09-02 12:36 | Outpatient (BNV) | payer OTHER, SELFPAY | PROVIDERS: Emergency Provider Emergency Medicine; PCP Physician Assistant Medical; Visit Provider Radiology Diagnostic Radiology | DX: R10.9 Unspecified abdominal pain (principal); R11.2 Nausea with vomiting, unspecified; R19.7 Diarrhea, unspecified | CPT/HCPCS: 74177 ==

== ENCOUNTER 2024-10-22 21:13 | Emergency (ER) | payer OTHER, SELFPAY ==
--- NOTE | ~2024-10-22 | XR_ITS ---
CLINICAL HISTORY: fall pain 4 view left wrist Comparison: None Findings: No fractures or dislocations. No significant loss of joint space, osteophyte, or erosions. No radiopaque foreign body. Mildly diffuse soft tissue swelling. IMPRESSION: 1. No acute fracture This document has been electronically signed by: Uriel Griffith MD on 10/22/2024 23:06:26
--- NOTE | ~2024-10-22 | XR_ITS ---
CLINICAL HISTORY: fall pain 3 view left elbow Comparison: None Findings: No acute fractures or dislocations. No significant arthritic change or erosions. No joint effusion. No radiopaque foreign body. Mild posterior elbow soft tissue swelling. IMPRESSION: 1. No acute fracture This document has been electronically signed by: Uriel Griffith MD on 10/22/2024 23:12:27
--- NOTE | ~2024-10-22 | XR_ITS ---
CLINICAL HISTORY: fall pain 3 view left shoulder Comparison: None Findings: No fractures or dislocations. [id number] osteoarthritic changes of the AC joint. No erosions. No radiopaque foreign body. IMPRESSION: 1. No acute findings This document has been electronically signed by: Uriel Griffith MD on 10/22/2024 23:05:05
--- NOTE | ~2024-10-22 | XR_ITS ---
CLINICAL HISTORY: fall pain 4 view, chest and left ribs Comparison: None Findings: No displaced fractures. The visualized lungs are normal. IMPRESSION: No acute displaced rib fractures. This document has been electronically signed by: Uriel Griffith MD on 10/22/2024 23:09:28
[2024-10-22 21:23] VITALS: BP 131/89; PULSE 68; RESP 18; TEMP 36.7; O2SAT 100; BMI 28.2
[2024-10-22 22:02] VITALS: BP 104/69; PULSE 60; TEMP 36.2; O2SAT 100
--- NOTE | 2024-10-22 22:18 | ED.EXTPRO ---
HPI - Extremity Problem General Chief complaint: Extremity Injury, Upper Stated complaint: injury to rib and left shoulder Time Seen by Provider: 10/22/24 22:20 Source: patient Mode of arrival: ambulatory Limitations: no limitations History of Present Illness ED Provider: DR. Wadsworth HPI Narrative: 54-year-old female came in for evaluation after she slipped and fell on her left side of her body at home earlier today. Patient slipped on the wet floor landing in her left upper extremity complaining of left shoulder/ left arm /left elbow, and left chest wall pain after fall, no LOC, no head injury. Related Data Home Medications ?Medication ?Instructions ?Recorded ?Confirmed albuterol sulfate 2.5 mg/3 mL 1 mg inhalation Q6H PRN Shortness 12/31/21 06/23/24 (0.083 %) solution for nebulization Of Breath duloxetine 60 mg capsule,delayed 60 mg PO DAILY 03/19/23 06/23/24 release lisinopril 40 mg tablet 40 mg PO DAILY 03/19/23 06/23/24 tramadol 50 mg tablet 50 mg PO DAILY PRN pain 06/23/24 06/23/24 Previous Rx's ?Medication ?Instructions ?Recorded acetaminophen 500 mg capsule 500 mg PO QID PRN fever or pain 06/23/21 #14 caps albuterol sulfate 90 mcg/actuation 2 puff inhalation QID PRN 06/28/23 aerosol inhaler shortness of breath or wheezing #8.5 grams sennosides 8.6 mg-docusate sodium 2 tab-cap (2 x 8.6-50 mg) PO 11/27/23 50 mg tablet (Senna with Docusate BEDTIME 60 days #120 tabs Sodium) omeprazole 20 mg capsule,delayed 20 mg PO DAILY 90 days #90 caps 04/12/24 release dicyclomine 20 mg tablet 20 mg PO TID PRN for abdominal 05/05/24 pain #20 tabs ondansetron 4 mg disintegrating 4 mg PO Q8H PRN nausea and 06/23/24 tablet vomiting 30 days #30 tabs cholecalciferol (vitamin D3) 25 25 mcg PO DAILY 90 days #90 caps 06/27/24 mcg (1,000 unit) capsule Allergies Allergy/AdvReac Type Severity Reaction Status Date / Time doxycycline Allergy Unknown Itching Verified 10/22/24 21:31 Tylox Allergy Unknown Itching Uncoded 10/22/24 21:31 Review of Systems Review of Systems: All other systems are reviewed and are negative Constitutional: Reports as per HPI and Reports no additional constitutional complaints Eyes: Reports as per HPI and Reports no additional eye complaints Reports system reviewed and no additional complaints, except as documented Cardiovascular: Reports as per HPI and Reports no additional cardiovascular complaints Respiratory: Reports as per HPI and Reports no additional respiratory complaints Gastrointestinal: Reports as per HPI and Reports no additional gastrointestinal complaints Genitourinary: Reports no additional female genitourinary complaints Musculoskeletal: Reports no additional musculoskeletal complaints Skin/Breast: Reports system reviewed and no additional complaints, except as docu Psychiatric: Reports no additional psychiatric complaints Endocrine: Reports no additional endocrine complaints Hematologic/Lymphatic: Reports no additional hematologic/lymphatic complaints Allergic/Immunologic: Reports no additional allergic/immunologic complaints Reports system reviewed and no additional complaints, except as documented and Reports Abnormal speech present PMFSH Past Medical History Medical History Multiple sclerosis GERD (gastroesophageal reflux disease) Anxiety Asthma Hypertension Diverticulitis Surgical History History of hand surgery History of carpal tunnel release (01/15/23) Hx of endoscopy History of colonoscopy Family History Family History Father Alive and well Mother Hx of diabetes insipidus Social History Social History Household Members: Family, Children and Other Alcohol intake: never Patient Tobacco Use Status: Never used Tobacco Smoked in Last 30 Days: No Use of substances other than those prescribed or required for medical reasons: No Substance Use Type: Marijuana Advance Directives: No Advance Directives Information Provided: No Do you have a plan to hurt others: No Plan Patient : No Current occupational status: employed 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 Blood pressure elevated. Heart rate normal. Respiratory rate normal. Temperature normal. Oxygen saturation normal. Appearance: Alert. Oriented X3. No acute distress. Head: Normal external exam. Normocephalic. Atraumatic. No Thompson signs noted. No raccoon eyes noted Eyes: PERRLA. EOMI. Conjunctiva and sclera normal. Eyelids normal. ENT: TM's Normal. Pharynx normal. Uvula midline. Moist mucous membranes. No trismus noted. No drooling noted. No muffled voice noted. Neck: Normal inspection. Neck supple. FROM. No adenopathy. Thyroid Normal. No meningeal signs. No neck mass noted. CVS: Normal heart rate and rhythm. Heart sound normal. No murmurs noted. Pulses normal throughout. Respiratory: No respiratory distress. Painless inspiration. Breath sounds normal. No wheezes/rales/rhonchi noted. Chest nontender. No accessory muscle usage noted or decreased air movement noted. Abdomen: Soft and nontender. Bowel sounds normal in all 4 quadrants. No distention noted. No organomegaly noted. No visible injury noted. Back: No CVA tenderness. Full range of motion noted. Skin: Skin warm and dry. Normal skin color. Normal skin turgor. No rashes/lesions/lacerations noted. Extremities: Left upper extremity: No deformity, no bruising, no hematoma, no shoulder deformity, limited full range of motion secondary to pain. Neuro: Oriented X 3. Cranial nerve exam: II-XII are grossly intact No motor deficit. No sensory deficit. Reflexes normal. Course Reevaluation(s) Reevaluation #1: left upper extremity contusion after a fall. negative radiographic studies for fracture. Time: 01:00 Medications Administered Discontinued Medications Generic Name Dose Route Start Last Admin Trade Name Freq PRN Reason Stop Dose Admin Oxycodone HCl 5 mg 10/22/24 23:27 10/22/24 23:43 Oxycodone Hcl Immed Release 5 Mg Tablet PO 10/22/24 23:28 5 mg ONCE ONE Administration Medical Decision Making Differential Diagnosis Differential Diagnoses: The differential diagnosis associated with the presentation includes ( Left shoulder fracture, left shoulder dislocation, left arm fracture, left elbow fracture, left-sided rib fracture.) Admission/Observation Consideration of admission/observation: Escalation of care including admission/observation considered Independent Interpretation I performed an independent interpretation of an: Plain X-Ray ( Left shoulder, left wrist, left elbow, left ribs: No acute fracture.) Radiology Impression Discussion of test interpretation with radiology: I have reviewed the radiologist's reading. Discharge Plan Discharge Clinical Impression: Chest wall contusion, Contusion of arm, left Patient Disposition: Home, Self-Care Instructions: Contusion in Adults (ED) Prescriptions: No Action omeprazole 20 mg capsule,delayed release(DR/EC) 20 mg PO DAILY 90 Days Qty: 90 1RF dicyclomine 20 mg tablet 20 mg PO TID PRN (Reason: for abdominal pain) Qty: 20 3RF cholecalciferol (vitamin D3) 25 mcg (1,000 unit) capsule 25 mcg PO DAILY 90 Days Qty: 90 1RF acetaminophen 500 mg capsule 500 mg PO QID PRN (Reason: fever or pain) Qty: 14 0RF albuterol sulfate 90 mcg/actuation HFA aerosol inhaler 2 puff inhalation QID PRN (Reason: shortness of breath or wheezing) Qty: 8.5 0RF albuterol sulfate 2.5 mg /3 mL (0.083 %) solution for nebulization 1 mg inhalation Q6H PRN (Reason: Shortness Of Breath) lisinopril 40 mg tablet 40 mg PO DAILY duloxetine 60 mg capsule,delayed release(DR/EC) 60 mg PO DAILY sennosides-docusate sodium [Senna with Docusate Sodium] 8.6-50 mg tablet 2 tab-cap PO BEDTIME 60 Days Qty: 120 2RF Rx Instructions: Please 1-2 tab/caps every day at bedtime tramadol 50 mg tablet 50 mg PO DAILY PRN (Reason: pain) ondansetron 4 mg tablet,disintegrating 4 mg PO Q8H PRN (Reason: nausea and vomiting) 30 Days Qty: 30 3RF Referrals: Yin Flores PA-C [Primary Care Provider] - Stand Alone Forms: Work/School Release Print Language: Bulgarian
[2024-10-22] MEDS: oxyCODONE HCl Immed Release 5 MG TABLET PO (23:43)
[2024-10-23 00:38] VITALS: BP 116/77; PULSE 65; RESP 14; TEMP 36.4; O2SAT 98
[2024-10-23 01:26] VITALS: BP 116/71; PULSE 65; RESP 14; TEMP 36.4; O2SAT 98
== END 2024-10-23 01:20 | disposition home or self-care (01) ==
PROVIDERS: Emergency Provider Emergency Medicine; PCP Physician Assistant Medical
DX: S20.212A Contusion of left front wall of thorax, initial encounter (principal); S40.022A Contusion of left upper arm, initial encounter; W01.0XXA Fall on same level from slipping, tripping and stumbling without subsequent striking against object, initial encounter; M25.532 Pain in left wrist; M25.522 Pain in left elbow; Y93.E5 Activity, floor mopping and cleaning; Y92.039 Unspecified place in apartment as the place of occurrence of the external cause; Y99.9 Unspecified external cause status
CPT/HCPCS: 71101; 73030; 73070; 73100; 99283; 99284

== ENCOUNTER → 2024-10-22 22:40 | Outpatient (BNV) | payer OTHER, SELFPAY | PROVIDERS: Emergency Provider Emergency Medicine; PCP Physician Assistant Medical; Visit Provider Radiology Diagnostic Radiology | DX: R07.82 Intercostal pain (principal); M25.512 Pain in left shoulder; M25.522 Pain in left elbow; M25.532 Pain in left wrist | CPT/HCPCS: 71101; 73030; 73070; 73100 ==

== ENCOUNTER 2024-11-17 10:36 | Outpatient (AMB) | payer OTHER, SELFPAY ==
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
[2024-11-17 10:49] VITALS: BP 113/60; PULSE 80; O2SAT 100; BMI 28.9
== END 2024-11-17 11:35 | disposition home or self-care (01) ==
LOC: HO.HGI 10:37
PROVIDERS: PCP Physician Assistant Medical; Visit Provider Internal Medicine Gastroenterology
DX: K21.9 Gastro-esophageal reflux disease without esophagitis (principal); R13.14 Dysphagia, pharyngoesophageal phase; K29.70 Gastritis, unspecified, without bleeding; B96.81 Helicobacter pylori [H. pylori] as the cause of diseases classified elsewhere; K59.09 Other constipation; E53.8 Deficiency of other specified B group vitamins; Z12.11 Encounter for screening for malignant neoplasm of colon; R10.84 Generalized abdominal pain; R11.0 Nausea
CPT/HCPCS: 99499

== ENCOUNTER 2025-02-11 20:09 | Emergency (ER) | payer MEDICAID, SELFPAY ==
--- NOTE | ~2025-02-11 | XR_ITS ---
CLINICAL HISTORY: chest pain cough Exam: PA and lateral views of the chest. Comparison: October 22, 2024. Findings: Mediastinal contours, cardiac silhouette, pulmonary vasculature are within normal limits. No focal infiltrates. No pleural effusion or pneumothorax. Impression: No acute finding. This document has been electronically signed by: Harpreet Martines MD on 02/11/2025 21:05:20
--- NOTE | 2025-02-11 20:11 | ECG_ITS ---
Test Reason : CHEST PAIN Blood Pressure : */* mmHG Vent. Rate : 82 BPM Atrial Rate : 82 BPM P-R Int : 142 ms QRS Dur : 72 ms QT Int : 376 ms P-R-T Axes : 61 32 42 degrees QTcB Int : 439 ms Normal sinus rhythm Normal ECG When compared with ECG of 11-Jul-2022 07:19, No significant change was found Referred By: Generic ED Physician Electronically Signed By: DEBBIE CRAWFORD
[2025-02-11 20:18] VITALS: BP 137/93; PULSE 79; RESP 20; TEMP 36.5; O2SAT 98; BMI 28.3
--- NOTE | 2025-02-11 20:19 | ED_ITS ---
HPI - General Adult General Chief complaint: Chest Pain Stated complaint: chest pain/coughing alot Time Seen by Provider: 02/11/25 20:46 Source: patient Mode of arrival: ambulatory Limitations: no limitations History of Present Illness ED Provider: Dr. Wood HPI narrative: 54-year-old female history of tobacco use smoking, hypertension asthma, GERD presented hospital today for evaluation of shortness of breath and sharp sternal chest pain. Patient stated this chest pain comes and go. It is worsened when she moves. Patient states she feels as if she can not catch a full breath. Denies any fever. Denies any recent illness. Patient does admit to smoking however she has been cutting back on her smoking. Patient endorses fatigue. Related Data Home Medications ?Medication ?Instructions ?Recorded ?Confirmed albuterol sulfate 2.5 mg/3 mL 1 mg inhalation Q6H PRN Shortness 12/31/21 11/17/24 (0.083 %) solution for nebulization Of Breath duloxetine 60 mg capsule,delayed 60 mg PO DAILY 11/17/24 release lisinopril 40 mg tablet 40 mg PO DAILY 03/19/2310/21 tramadol 50 mg tablet 50 mg PO DAILY PRN pain 08/1611/17/24 Previous Rx's ?Medication ?Instructions ?Recorded acetaminophen 500 mg capsule 500 mg PO QID PRN fever o r pain 06/23/21 #14 caps albuterol sulfate 90 mcg/actuation 2 puff inhalation Q ID PRN 06/28/23 aerosol inhaler shortness of breath or wheez ing #8.5 grams sennosides 8.6 mg-docusate sodium 2 tab-cap (2 x 8.6-5 0 mg) PO 11/27/23 50 mg tablet (Senna with Docusate BEDTIME 60 days #120 tabs Sodium) dicyclomine 20 mg tablet 20 mg PO TID PRN for abdomin al 05/05/24 pain #20 tabs ondansetron 4 mg disintegrating 4 mg PO Q8H PRN nausea and 06/23/24 tablet vomiting 30 days #30 tabs omeprazole 20 mg capsule,delayed 20 mg PO DAILY #90 ca ps 12/19/24 release cholecalciferol (vitamin D3) 25 25 mcg PO DAILY 90 day s #90 caps 01/25/25 mcg (1,000 unit) capsule (Vitamin D3) lidocaine 4 % topical patch 1 patch topical DAILY PRN pain 10 02/12/25 days #10 ea Allergies Allergy/AdvReac Type Severity Reaction Status Date / Time doxycycline Allergy Unknown Itching Verified 02/11/25 20:19 Tylox Allergy Unknown Itching Uncoded 02/11/25 20:19 Review of Systems 2 Review of Systems: Pertinent review of systems as mentioned in HPI. All other system otherwise negative. [facility] Past Medical History [facility] Narrative: Medical history as mentioned in HPI Medical History Multiple sclerosis GERD (gastroesophageal reflux disease) Anxiety Asthma Hypertension Diverticulitis Surgical History History of hand surgery History of carpal tunnel release (01/15/23) Hx of endoscopy History of colonoscopy Family History Family History Father Alive and well Mother Hx of diabetes insipidus Social History Social History Household Members: Family, Children and Other Alcohol intake: never Patient Tobacco Use Status: Never used Tobacco Smoked in Last 30 Days: Yes Use of substances other than those prescribed or required for medical reasons: Yes Substance Use Type: Marijuana Substance Use Frequency: Daily Advance Directives: No Advance Directives Information Provided: No Current occupational status: employed 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 Physical Exam ED Exam Exam: General: Pleasant, no distress, interacting appropriately Head: Normacephalic, atraumatic ENT: oral mucosa moist, neck supple, no tracheal deviation Cardiovascular: regular rate, regular rhythm, no murmurs, rubbing, gallops Respiratory: CTAB, no wheeze, rales, rhonchi Neurological: Awake and alert, no facial droop noted Skin: Warm and dry Psychiatric: Appropriate mood and thoughts Vital Signs: Vital Signs - 24 hr 02/11/25 20:18 02/11/25 21:37 Temperature 97.7 F Pulse Rate 79 78 Respiratory Rate 20 16 Blood Pressure 137/93 H Pulse Oximetry 98 Oxygen Delivery Method Room Air BMI result Body Mass Index 28.3 Course Course Course Narrative: This is a Rapid Medical Examination (RME) performed by Gregory Anaya PA-C in triage. Full HPI, ROS, assessment and treatment plan per primary provider in the Main ED. Hx: 54 yo F hx MS, carpal tunnel syndrome, depression, chronic constipation/abdominal pain, HTN, H. pylori, GERD, dysphagia here w/ chest pain that today while she was sleeping. reports dry cough, no productive. reports sob w/ laughing/ cough. no recent travel or long car rides. becomes defensive when asked about hormones/ control. Plan: labs, ekg, cxr Medications Administered Discontinued Medications Generic Name Dose Route Start Last Admin Trade Name Frefrance PRN Reason Stop Dose Admin Acetaminophen 650 mg 02/11/25 22:37 02/11/25 22:48 Acetaminophen 325 Mg Tablet PO 02/11/25 22:38 650 mg ONCE ONE Administration Albuterol/Ipratropium 3 ml 02/11/25 21:24 02/11/25 21:36 Albuterol/Iprat 2.5/0.5mg 3 Ml Ampul.Neb INHALE 02/11/25 21:25 3 ml ONCE ONE Administration Sodium Chloride 1,000 mls @ 999 mls/hr 02/11/25 21:30 02/11/25 21:54 Ns IV 02/11/25 22:30 999 mls/hr .Q1H1M RAMYA Administration Ketorolac Tromethamine 15 mg 02/11/25 21:22 02/11/25 21:50 Ketorolac Tromethamine 15 Mg/Ml Vial IVPUSH 02/11/25 21:23 15 mg ONCE ONE Administration Lidocaine 1 patch 02/11/25 22:37 02/11/25 22:47 Lidocaine 4 % Patch Adh..Patch TRANSDERMA 02/11/25 22:38 1 patch ONCE ONE Administration Protocol Medical Decision Making Medical Decision Making MDM Narrative: 54-year-old female presented hospital today for evaluation of shortness of breath and intermittent chest pain that is reproducible on exam. Given patient's shortness of breath and intermittent chest pain we will obtain a D-dimer patient is relatively low risk for PE. However can not be PERC out due to her age. We will plan to give patient a bolus IV fluid, IV Toradol will be given the patient. ACS workup will be obtained including EKG, CBC chemistry troponin. Review patient's lab work troponin is not elevated. Chest x-ray is unremarkable. I do not think patient has sepsis. She does not appear to be toxic. No sign of fever no sign of tachycardic. ACS workup did not show any signs of STEMI or acute ischemia. Patient's D-dimer is 319. Age adjusted upper limit is 540. Patient unlikely has PE. On further evaluation after IV fluid and lidocaine patch for her chest patient states her chest pain is better. She is feeling much better at this time. We will plan to discharge patient at this time. Patient agrees and understands this plan. Differential Diagnosis Differential Diagnoses: The differential diagnosis associated with the presentation includes ACS, COPD, asthma exacerbation, PE, pneumonia Lab Data MDM Lab Attestation statement: I reviewed the patient's lab results. 02/11/25 20:27 02/11/25 20:27 Labs: Lab Results 02/11/25 02/11/25 02/11/25 Range/Units 20:27 20:48 22:07 WBC 6.5 (4.8-10.8) X10*3/uL RBC 3.90 L (4.20-5.50) X10*6/uL Hgb 12.3 (12.0-16.0) g/dl Hct 35.1 L (37.0-47.0) % MCV 90.0 (80.0-98.0) fL MCH 31.5 (27.0-33.0) pg MCHC 35.0 (31.0-35.0) g/dl RDW 12.9 (11.0-16.0) % Plt Count 238 (160-400) X10*3/uL MPV 10.4 (9.4-12.3) fL Immature Gran % (Auto) 0.2 (0.0-0.4) % Neut % (Auto) 45.9 (45-73) % Lymph % (Auto) 39.1 (20-40) % [place] % (Auto) 13.3 H (2-11) % Eos % (Auto) 0.9 (0-4) % Baso % (Auto) 0.6 (0-2) % Lymph # (Auto) 2.6 (1.2-4.9) X10*3/uL [place] # (Auto) 0.9 (0.1-1.2) X10*3/uL Eos # (Auto) 0.1 (0.0-0.4) X10*3/uL Baso # (Auto) 0.0 (0.0-0.2) X10*3/uL Abs Immat Gran (auto) 0.01 (0.00-0.03) X10*3/uL Absolute Neuts (auto) 3.0 (2.0-8.3) x10*3/uL Absolute Nucleated RBC 0.000 (0.0-0.012) X10*3/uL Nucleated RBC % (auto) 0.0 (0.0-0.2) /100WBC D-Dimer High Sensitivty 319 NG/ML Sodium 144 (135-145) mmol/L Potassium 3.4 (3.3-5.1) mmol/L Chloride 109 H (96-108) mmol/L Carbon Dioxide 25 (22-29) mmol/L Anion Gap 13 (12-20) BUN 19 H (9-16) mg/dL Creatinine 0.72 (0.5-1.4) mg/dL Estim Creat Clear Calc 72.3 Estimated GFR > 60 Random Glucose 103 (60-115) mg/dL Calcium 9.1 (8.4-10.2) mg/dL Magnesium 2.0 (1.6-2.6) mg/dL Total Bilirubin 0.4 (0.0-1.0) mg/dL AST 23 (5-31) U/L ALT 12 (0-31) U/L Alkaline Phosphatase 79 (39-117) U/L Troponin I High Sens 10.5 D (<3.5-17.0) ng/L Total Protein 7.4 (6.5-8.0) g/dL Albumin 4.5 (3.5-5.0) g/dL Lipase 23 (8-78) U/L Influenza Type A (PCR) NEGATIVE (Negative) Influenza Type B (PCR) NEGATIVE (Negative) RSV RNA Qual (PCR) NEGATIVE (Negative) SARS-CoV-2 RNA (RT-PCR) NEGATIVE (Negative) Independent Interpretation I performed an independent interpretation of an: EKG Discharge Plan Discharge Clinical Impression: Dehydration, Costochondritis Patient Disposition: Home, Self-Care Additional Instructions: you may take 1000 mg Tylenol every 8 hours or 400 mg ibuprofen every 8 hours. This may help with the inflammation on your chest. Use lidocaine patch as needed for your pain. Please follow with your primary care doctor. Prescriptions: New lidocaine 4 % adhesive patch,medicated 1 patch topical DAILY PRN (Reason: pain) 10 Days Qty: 10 0RF No Action dicyclomine 20 mg tablet 20 mg PO TID PRN (Reason: for abdominal pain) Qty: 20 3RF omeprazole 20 mg capsule,delayed release(DR/EC) 20 mg PO DAILY Qty: 90 1RF cholecalciferol (vitamin D3) [Vitamin D3] 25 mcg (1,000 unit) capsule 25 mcg PO DAILY 90 Days Qty: 90 1RF acetaminophen 500 mg capsule 500 mg PO QID PRN (Reason: fever or pain) Qty: 14 0RF albuterol sulfate 90 mcg/actuation HFA aerosol inhaler 2 puff inhalation QID PRN (Reason: shortness of breath or wheezing) Qty: 8.5 0RF albuterol sulfate 2.5 mg /3 mL (0.083 %) solution for nebulization 1 mg inhalation Q6H PRN (Reason: Shortness Of Breath) lisinopril 40 mg tablet 40 mg PO DAILY duloxetine 60 mg capsule,delayed release(DR/EC) 60 mg PO DAILY sennosides-docusate sodium [Senna with Docusate Sodium] 8.6-50 mg tablet 2 tab-cap PO BEDTIME 60 Days Qty: 120 2RF Rx Instructions: Please 1-2 tab/caps every day at bedtime tramadol 50 mg tablet 50 mg PO DAILY PRN (Reason: pain) ondansetron 4 mg tablet,disintegrating 4 mg PO Q8H PRN (Reason: nausea and vomiting) 30 Days Qty: 30 3RF Print Language: Portuguese
[2025-02-11 20:35] LABS: MANUAL DIFF FLAG NO
[2025-02-11 20:36] LABS: Hematocrit 35.1 % (37.0-47.0); Hemoglobin 12.3 g/dl (12.0-16.0); Imm Gran Abs Auto 0.01 X10*3/uL (0.00-0.03); Imm Gran Pct Auto 0.2 % (0.0-0.4); Lymphocytes Absolute Auto 2.6 X10*3/uL (1.2-4.9); Mean Corpuscular HGB Conc 35.0 g/dl (31.0-35.0); Mean Corpuscular Hemoglobin 31.5 pg (27.0-33.0); Mean Corpuscular Volume 90.0 fL (80.0-98.0); NRBC Abs Auto 0.000 X10*3/uL (0.0-0.012); NRBC Pct Auto 0.0 /100WBC (0.0-0.2); Platelet Count 238 X10*3/uL (160-400); Red Blood Count 3.90 X10*6/uL (4.20-5.50); White Blood Count 6.5 X10*3/uL (4.8-10.8)
[2025-02-11 20:52] LABS: Alanine Aminotransferase 12 U/L (0-31); Albumin Level 4.5 g/dL (3.5-5.0); Alkaline Phosphatase 79 U/L (39-117); Anion Gap 13 (12-20); Aspartate Amino Transferase 23 U/L (5-31); Blood Urea Nitrogen 19 mg/dL (9-16); Calcium 9.1 mg/dL (8.4-10.2); Carbon Dioxide 25 mmol/L (22-29); Chloride 109 mmol/L (96-108); Creatinine Clr Calc Pharmacy 72.3; Estimated Glomerular Filt Rate > 60; Lipase 23 U/L (8-78); Magnesium 2.0 mg/dL (1.6-2.6); Potassium 3.4 mmol/L (3.3-5.1); Sodium 144 mmol/L (135-145); Total Protein 7.4 g/dL (6.5-8.0)
[2025-02-11 20:59] LABS: Troponin-I High Sensitivity 10.5 ng/L (<3.5-17.0)
[2025-02-11] MEDS: Albuterol/Iprat 2.5/0.5MG 3 ML AMPUL.NEB INHALE (21:36)
[2025-02-11 21:37] VITALS: PULSE 78; RESP 16; O2SAT 99
[2025-02-11 21:40] LABS: Resp Syncy Virus RNA Qual PCR NEGATIVE (Negative); SARS COV2 PCR INHOUSE NEGATIVE (Negative)
[2025-02-11 22:23] LABS: D Dimer High Sensitivity 319 NG/ML
[2025-02-11] MEDS: Lidocaine 4 % Patch ADH..PATCH 1 PATCH TRANSDERMA (22:47)
[2025-02-12 00:51] VITALS: BP 132/81; PULSE 74; RESP 14; TEMP 36.3; O2SAT 100
[2025-02-12 00:52] VITALS: BP 132/81; PULSE 74; RESP 14; TEMP 36.3; O2SAT 100
== END 2025-02-12 00:53 | disposition home or self-care (01) ==
PROVIDERS: Physician Assistant Medical; Emergency Provider Student in an Organized Health Care Education/Training Program
DX: E86.0 Dehydration (principal); M94.0 Chondrocostal junction syndrome [Tietze]; I10 Essential (primary) hypertension; K21.9 Gastro-esophageal reflux disease without esophagitis; Z87.891 Personal history of nicotine dependence
CPT/HCPCS: 36415; 71046; 80053; 83690; 83735; 84484; 85025; 85379; 87637; 93005; 94640; 96361; 96374; 99284; 99285; J1885

== ENCOUNTER → 2025-02-11 20:11 | Outpatient (BNV) | payer MEDICAID, SELFPAY | PROVIDERS: Emergency Provider Student in an Organized Health Care Education/Training Program; Visit Provider Internal Medicine | DX: R07.89 Other chest pain (principal) | CPT/HCPCS: 93010 ==

== ENCOUNTER → 2025-02-11 20:22 | Outpatient (BNV) | payer MEDICAID, SELFPAY | PROVIDERS: Emergency Provider Student in an Organized Health Care Education/Training Program; Visit Provider Radiology Diagnostic Radiology | DX: R07.89 Other chest pain (principal); R05.9 Cough, unspecified | CPT/HCPCS: 71046 ==

== ENCOUNTER 2025-03-23 10:13 | Outpatient (AMB) | payer OTHER, SELFPAY ==
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
[2025-03-23 10:36] VITALS: BP 140/82; PULSE 74; O2SAT 98; BMI 28.7
--- OUTSIDE RECORDS SUMMARY | 2025-03-23 11:39 | XMS_ITS | Encounter Summary ---
Author Organization [facility] Address [address] [facility] [address] [place] [address] Phone Care Team Providers Care Toolroom Attendant Name Role Phone Samy Alva MD Primary Care Prov ider Samy Alva MD Unavailable + Sarah Andersen RN Unavailable Baljit HernandezSW Unavailable [phone] Yin Flores Primary Care Provider [phone] Chata Abebe MD Unavailable Nick Canales MD Unavailable [phone] Nelly Paz Unavailable [email or web address] Yuli AlvarezW Unavailable [email or web address] Sarah Andersen RN Unavailable Isabella Reyes Unavailable Nelly Paz Unavailable [email or web address] Maribel Martinez Unavailable juan miguel stillorosenjuan Aida Montgomery MD Unavailable [phone] Encounter Details Date Type Department Care Team (Late st Contact Info) Description 10/27/2020 Transcribe Orders Virtual Department [address] [place] [address] Tricia Chawla NP [address] [place] [address] Fever, unspecified fever cause (Primary Dx); Cough; Mild shortness of breath; Muscle ache Social History Tobacco Use Types Packs/Day Years Used Date Smoking Tobacco: Never Smokeless Tobacco: Never Alcohol Use Standard Drinks/Week Comments No 0 (1 standard drink = 0.6 oz pur e alcohol) Comments No Sex and Gender Information Value Date Recorded Sex Assigned at Female 11/18/2017 12:10 AM EDT Legal Sex Female 9:34 PM EDT Gender Identity Female 11/18/2017 12:10 AM EDT Sexual Orientation Straight 11/18/2017 12 :10 AM EDT documented as of this encounter Plan of Treatment Not on file documented as of this encounter Visit Diagnoses Diagnosis Fever, unspecified fever cause- Primary Cough Mild shortness of breath Muscle ache Unspecified myalgia and myositis documented in this encounter Additional Health Concerns Infection Onset Date Last Indicated Resolved Time CoV-Risk 10/27/2020 10/27/2020 11/06/2020 1:24 AM EDT CoV-Risk 07/07/2023 07/07/2023 07/18/2023 1:22 AM EST CoV-Risk 12/19/2023 12/19/2023 12/19/2023 12:4 3 PM EDT COVID-19 12/19/2023 12/19/2023 01/09/2024 1:23 AM EDT CoV-Risk 08/30/2024 08/30/2024 09/10/2024 1:21 AM EDT Influenza B 08/30/2024 08/30/2024 09/06/2024 1:22 AM EDT documented as of this encounter Care Teams Toolroom Attendant Relationship Specialty Start Date End Date Samy Alva MD [address] [place] [address] [email or web address] PCP - General Family Medicine 5/30/18 2/9/22 Yin Flores PA [address] [place] [address] PCP - General Private Client Advisor 08/01/21 Samy Alva MD [address] [place] [address] [email or web address] Insurance Assigned Provider 08/25/20 08/25/21 Sarah Andersen RN [address] [place] [address] [facility] Rn Clinician 05/24/21 06/25/21 Baljit Hernandez LICSW [address] [place] [address] [email or web address] [facility] Social Work 06/26/21 Chata Abebe MD [address] [place], [place] Insurance Assigned Provider 08/25/21 11/30/21 Nick Canales MD [address] [place], [place] Insurance Assigned Provider 11/30/21 02/28/23 Nelly Paz [address] [place], [place] [email or web address] [facility] Community Professional Builder 11/26/22 11/27/22 Yuli Alvarez LCSW [address] [place] [address] [email or web address] Diabetes Territory Manager 12/09/22 03/04/23 Sarah Andersen RN [address] [place] [address] [email or web address] [facility] 12/26/22 01/04/23 Isabella Reyes [address] [place] [address] [email or web address] Community Health Worker 02/02/23 09/22/24 Nelly Paz [address] [place] [address] [email or web address] Community Professional Builder 02/10/23 02/12/23 Maribel Martinez [address] [place] [address] [email or web address] [facility] Community Professional Builder 03/16/24 03/16/24 Aida Montgomery MD [address] [place] [address] [email or web address] Insurance Assigned Provider Family Medicine 11/08/24 documented as of this encounter Additional Source Comments The information contained in this document represents components of the legal health record. It is not the complete legal health record.[facility]
--- OUTSIDE RECORDS SUMMARY | 2025-03-23 11:39 | XMS_ITS | Encounter Summary ---
Author Organization [facility] Address [address] [place] [address] Phone Care Team Providers Care Weight Clerk Name Role Phone Baljit Hernandez ALYCE Unavailable [phone] Yin Flores Primary Care Provider [phone] Aida Montgomery MD Unavailable [phone] Encounter Details Date Type Department Care Team (Late st Contact Info) Description 03/20/2025 [facility] GENERATED External System Generated Encounter [address] [place] [address] Unknown, Unknown, Social History Tobacco Use Types Packs/Day Years Used Date Smoking Tobacco: Former Cigarettes Smokeless Tobacco: Never Alcohol Use Standard Drinks/Week Comments No 0 (1 standard drink = 0.6 oz pur e alcohol) Education Answer Date Recorded Are you interested in more education? Not on tk e 10/17/2022 Are you concerned about learning? Not on file 10/17/2022 No 10/17/2022 No 10/17/2022 Digital Access Answer Date Recorded No 11/14/2022 No 11/14/2022 Reliable internet access at home? Not on file 11/14/2022 Device with a working camera? Not on file Intimate Partner Violence Answer Date R ecorded Are you denied basic needs s uch as food, clothing, or medical care? No 12/16/2024 In the past 12 months have y ou been in a relationship with a person who hurts, threatens, or tries to control you? No 12/16/2024 Are you denied basic needs s uch as food, clothing, or medical care? No 12/16/2024 In the past 12 months have y ou been in a relationship with a person who hurts, threatens, or tries to control you? No 12/16/2024 Comments No Sex and Gender Information Value Date Recorded Sex Assigned at Female 11/18/2017 12:10 AM EDT Legal Sex Female 9:34 PM EDT Gender Identity Female 11/18/2017 12:10 AM EDT Sexual Orientation Straight 11/18/2017 12 :10 AM EDT documented as of this encounter Plan of Treatment Not on file documented as of this encounter Visit Diagnoses Not on filedocumented in this encounter Additional Health Concerns Assessment Noted Time PHQ-2 Depression Total Score: 2 07/02/19 12:51 PM EST documented as of this encounter Care Teams Weight Clerk Relationship Specialty Start Date End Date Yin Flores PA [address] [place] [address] PCP - General Switchboard Troubleshooter 08/01/21 Baljit Hernandez LICSW [address] [place] [address] [employer] Social Work 06/26/21 Aida Montgomery MD [address] [place] [address] [email or web address] Insurance Assigned Provider Family Medicine 11/08/24 documented as of this encounter Additional Source Comments The information contained in this document represents components of the legal health record. It is not the complete legal health record.[facility]
--- OUTSIDE RECORDS SUMMARY | 2025-03-23 11:39 | XMS_ITS | Encounter Summary ---
Author Organization [facility] Address [address] [facility] [address] [place] [address] Phone Care Team Providers Care Regional Facilities Manager Name Role Phone Baljit Hernandez [employer] Unavailable [phone] Yin Flores Primary Care Provider [phone] Isabella Reyes Unavailable Maribel Martinez Unavailable juan miguel stillorosenjuan Aida Montgomery MD Unavailable [phone] Reason for Referral * MRI/CAT Scan - Closed Specialty Diagnoses / Procedures Referred By Niyah sanders Referred To Contact Radiology Diagnoses Numbness Procedures MRI Brain Tim Hoover MD [address] [place] [address], [address] [place] [address] Phone: tel: fax: [email or web address] Referral ID Status Reason Start Date Expiration Date Visits Re quested Visits Authorized [id number] Closed 11/25/2023 11/24/2024 1 1 Encounter Details Date Type Department Care Team (Latest Contact Info) Description 11/25/[address] [facility] Department [address] [place] [address] Tim Hoover MD [address] [place] [address], [address] [place] [address] [email or web address] Numbness (Primary Dx) Social History Tobacco Use Types Packs/Day Years [...] with a working camera? Not on file Comments No Sex and Gender Information Value Date Recorded Sex Assigned at Female 11/18/2017 12:10 AM EDT Legal Sex Female 9:34 PM EDT Gender Identity Female 11/18/2017 12:10 AM EDT Sexual Orientation Straight 11/18/2017 12 :10 AM EDT documented as of this encounter Plan of Treatment Not on file documented as of this encounter Results * MRI BRAIN (MS) WITHOUT CONTRAST (03/25/2024 11:49 AM EDT) Anatomical Region Laterality Modality Head Magnetic Resonan ce 03/28/2024 9:38 AM EDT Impressions 03/28/2024 9:49 AM EDT 1. Normal MRI of the brain. Narrative 03/28/2024 9:49 AM EDT MRI BRAIN (MS) WITHOUT CONTRAST Referring clinician's provided indication for this examination in Epic: Outside Radiology Order; NUMBNESS TECHNIQUE: MRI BRAIN (MS) WITHOUT CONTRAST Multi-sequence, multi-planar MRI of the brain was performed without intravenous contrast. COMPARISON: None. FINDINGS: Brain Parenchyma: Normal. No evidence of acute infarct, mass lesion, or hemorrhage. Brain Volume: Normal. Ventricular System and Extra-Axial Spaces: Normal. No evidence of midline shift or hydrocephalus. Extracranial Structures: Expected arterial flow signal is observed at the skull base. Procedure Note Leander Randle MD - 03/28/2024 MRI BRAIN (MS) WITHOUT CONTRAST Referring clinician's provided indication for this examination in [facility]:Outside Radiology Order; NUMBNESS TECHNIQUE: MRI BRAIN (MS) WITHOUT CONTRAST Multi-sequence, multi-planar MRI of the brain was performed withoutintravenous contrast. COMPARISON: None. FINDINGS: Brain Parenchyma: Normal. No evidence of acute infarct, mass lesion, orhemorrhage. Brain Volume: Normal. Ventricular System and Extra-Axial Spaces: Normal. No evidence of midlineshift or hydrocephalus. Extracranial Structures: Expected arterial flow signal is observed at theskull base. IMPRESSION: 1. Normal MRI of the brain. us Tim Hoover MD IMG MR HEAD/NECK Final Resul t documented in this encounter Visit Diagnoses Diagnosis Numbness- Primary Disturbance of skin sensation Numbness Disturbance of skin sensation documented in this encounter Additional Health Concerns Infection Onset Date Last Indicated Resolved Time CoV-Risk 12/19/2023 12/19/2023 12/19/2023 12:4 3 PM EDT COVID-19 12/19/2023 12/19/2023 01/09/2024 1:23 AM EDT CoV-Risk 08/30/2024 08/30/2024 09/10/2024 1:21 AM EDT Influenza B 08/30/2024 08/30/2024 09/06/2024 1:22 AM EDT Assessment Noted Time PHQ-2 Depression Total Score: 2 07/02/19 12:51 PM EST documented as of this encounter Care Teams Regional Facilities Manager Relationship Specialty Start Date End Date Yin Flores PA [address] [place] [address] PCP - General Metal Sprayer Production 08/01/21 Baljit Hernandez LICSW [address] [place] [address] iC[employer] Social Work 06/26/21 Isabella Reyes [address] [place] [email or web address] Community Health Worker 02/02/23 09/22/24 Maribel Martinez [address] [place] [address] [email or web address] iCMP Community Weather Forecaster 03/16/24 03/16/24 Aida Montgomery MD [address] [place] [address] [email or web address] Insurance Assigned Provider Family Medicine 11/08/24 documented as of this encounter Additional Source Comments The information contained in this document represents components of the legal health record. It is not the complete legal health record.[facility]
--- OUTSIDE RECORDS SUMMARY | 2025-03-23 11:39 | XMS_ITS | Encounter Summary ---
Author Organization [facility] Address [address] [facility] [address] [place] [address] Phone Care Team Providers Care Garage Door Installer Name Role Phone Baljit HernandezSW Unavailable [phone] Yin Flores Primary Care Provider [phone] Aida Montgomery MD Unavailable [phone] Encounter Details Date Type Department Care Team (Late st Contact Info) Description 12/13/2024 Prep for Surgery [facility] Orthopedics & Sports Medicine [address] [place] [address] [phone] Hilda Castro MD [address] [place] [address] Orthopedics & Sports Medicine, [facility]. [place], [place] [id number] Social History Tobacco Use Types Packs/Day Years [...] Time PHQ-2 Depression Total Score: 2 07/02/19 22 12:51 PM EST documented as of this encounter Care Teams Garage Door Installer Relationship Specialty Start Date End Date Yin Flores PA [address] [place] [address] PCP - General Merchandising Consultant 08/01/21 Baljit Hernandez LICSW [address] [place] [address] iCMP Social Work 06/26/21 Aida Montgomery MD [address] [place] [address] [email or web address] Insurance Assigned Provider Family Medicine 11/08/24 documented as of this encounter Additional Source Comments The information contained in this document represents components of the legal health record. It is not the complete legal health record.[facility]
--- OUTSIDE RECORDS SUMMARY | 2025-03-23 11:39 | XMS_ITS | Encounter Summary ---
Author Organization [facility] Address [address] [facility] [address] [place] [address] Phone Care Team Providers Care Cloud Systems Administrator Name Role Phone Baljit Hernandez SUPERVISOR CHASSIS ASSEMBLY Unavailable [phone] Yin Flores Primary Care Provider [phone] Isabella Reyes Unavailable [email or web address] Maribel Martinez Unavailable juan miguel stillorosenjuan Aida Montgomery MD Unavailable [phone] Encounter Details Date Type Department Care Team (Late st Contact Info) Description 10/23/2023 Procedure Pass [facility], [address] [address] Social History Tobacco Use Types Packs/Day Years [...] filedocumented in this encounter Additional Health Concerns Infection Onset Date Last Indicated Resolved Time CoV-Risk 12/19/2023 12/19/2023 12/19/2023 12:4 3 PM EDT COVID-19 12/19/2023 12/19/2023 01/09/2024 1:23 AM EDT CoV-Risk 08/30/2024 08/30/2024 09/10/2024 1:21 AM EDT Influenza B 08/30/2024 08/30/2024 09/06/2024 1:22 AM EDT Assessment Noted Time PHQ-2 Depression Total Score: 2 07/02/19 12:51 PM EST documented as of this encounter Care Teams Cloud Systems Administrator Relationship Specialty Start Date End Date Yin Flores PA [address] [place] [address] PCP - General Doll Repairer 08/01/21 Baljit Hernandez LICSW [address] [place] [address] [facility] 06/26/21 Isabella Reyes [address] [place] [phone] Community Health Worker 02/02/23 09/22/24 Maribel Martinez [address] [place] [address] [email or web address] [facility] Community Quality Review Trainer 03/16/24 03/16/24 Aida Montgomery MD [address] [place] [address] [email or web address] Insurance Assigned Provider Family Medicine 11/08/24 documented as of this encounter Additional Source Comments The information contained in this document represents components of the legal health record. It is not the complete legal health record.[facility]
--- OUTSIDE RECORDS SUMMARY | 2025-03-23 11:39 | XMS_ITS | Encounter Summary ---
Author Organization [facility] Address [address] [facility] [address] [place] [address] Phone Care Team Providers Care Knife Glazer Name Role Phone Baljit Hernandez ALYCE Unavailable [phone] Yin Flores Primary Care Provider [phone] Aida Montgomery MD Unavailable [phone] Encounter Details Date Type Department Care Team (Late st Contact Info) Description 11/25/2024 Procedure Pass [facility], [address] [address] Social History Tobacco Use Types Packs/Day Years [...] as food, clothing, or medical care? No 08/30/2024 In the past 12 months have y ou been in a relationship with a person who hurts, threatens, or tries to control you? No 08/30/2024 Are you denied basic needs s uch as food, clothing, or medical care? No 08/30/2024 In the past 12 months have y ou been in a relationship with a person who hurts, threatens, or tries to control you? No 08/30/2024 Comments No Sex and Gender Information Value [...] documented as of this encounter Care Teams Knife Glazer Relationship Specialty Start Date End Date Yin Flores PA [address] [place] [address] PCP - General International Trade Teacher 08/01/21 Baljit Hernandez LICSW [address] [place] [address] iCMP Social Work 06/26/21 Aida Montgomery MD [address] [place] [address] [email or web address] Insurance Assigned Provider Family Medicine 11/08/24 documented as of this encounter Additional Source Comments The information contained in this document represents components of the legal health record. It is not the complete legal health record.[facility]
--- OUTSIDE RECORDS SUMMARY | 2025-03-23 11:39 | XMS_ITS | Encounter Summary ---
Author Organization [facility] Address [address] [facility] [address] [place] [address] Phone Care Team Providers Care Patient Registration Manager Name Role Phone Baljit Hernandez PATHOLOGY MANAGER Unavailable [phone] Yin Flores Primary Care Provider [phone] Isabella Reyes Unavailable Maribel Martinez Unavailable juan miguel stillorosenjuan Aida Montgomery MD Unavailable Encounter Details Date Type Department Care Team (Late st Contact Info) Description 11/25/2023 Procedure Pass [facility], [address] [address] Social History Tobacco Use Types Packs/Day Years [...] documented as of this encounter Care Teams Patient Registration Manager Relationship Specialty Start Date End Date Yin Flores PA [address] [place] [address] PCP - General Formation Fracturing Operator 08/01/21 Baljit Hernandez LICSW [address] [place] [phone] [facility] 06/26/21 Isabella Reyes [address] [place] [address] Community Health Worker 02/02/23 09/22/24 Maribel Martinez [address] [place] [address] [email or web address] [facility] Community Floor Covering Contractor 03/16/24 03/16/24 Aida Montgomery MD [address] [place] [address] [email or web address] Insurance Assigned Provider Family Medicine 11/08/24 documented as of this encounter Additional Source Comments The information contained in this document represents components of the legal health record. It is not the complete legal health record.[facility]
--- OUTSIDE RECORDS SUMMARY | 2025-03-23 11:39 | XMS_ITS | Encounter Summary ---
Author Organization [facility] Address [address] [place] [address] Phone Care Team Providers Care Large Sheetfed Press Operator Name Role Phone Baljit Hernandez ALYCE Unavailable [phone] Yin Flores Primary Care Provider [phone] Aida Montgomery MD Unavailable [phone] Reason for Referral * Outpatient Procedure - Closed Specialty Diagnoses / Procedures Referred By Niyah sanders Referred To Contact Radiology Diagnoses TIA (transient ischemic attack) Procedures US Carotid Duplex Complete (Bilateral) Tim Hoover MD [address] [place] [address], [address] [place] [address] Phone: tel: fax: [email or web address]:[email or web address] Referral ID Status Reason Start Date Expiration Date Visits Re quested Visits Authorized [id number] Closed 11/25/2024 11/25/2025 1 1 * MRI/CAT Scan - Closed Specialty Diagnoses / Procedures Referred By Niyah sanders Referred To Contact Radiology Diagnoses Weakness of lower extremity, unspecified laterality Numbness Procedures MRI Thoracic Spine Tim Hoover MD [address] [place] [address], [address] [place] [address] Phone: tel: fax: mailto:[email or web address] Referral ID Status Reason Start Date Expiration Date Visits Re quested Visits Authorized [id number] Closed 11/25/2024 11/25/2025 1 1 Encounter Details Date Type Department Care Team (Latest Contact Info) Description 11/25/2024 Transcribe Orders Virtual Department [address] [place] [id number] Tim Hoover MD [address] [place] [address], [address] [place] [address] [email or web address] Weakness of lower extremity, unspecified laterality (Primary Dx); Numbness; TIA (transient ischemic attack) Social History Tobacco Use Types Packs/Day Years [...] as of this encounter Results * MRI THORACIC SPINE (NEURO) WITH AND WITHOUT CONTRAST (01/20/2025 7:41 PM EDT) Anatomical Region Laterality Modality T-spine Magnetic Resonan ce 01/23/2025 9:56 AM EDT Impressions 01/23/2025 10:02 AM EDT 1. No significant degenerative disc disease changes, spinal canal stenosis or neural foramina narrowing in the thoracic spine. 2. No abnormal cord signal or enhancement in the thoracic spinal cord. Narrative 01/23/2025 10:02 AM EDT MRI THORACIC SPINE (NEURO) WITH AND WITHOUT CONTRAST Referring clinician's provided indication for this examination in Epic: Outside Radiology Order; weakness TECHNIQUE: MRI THORACIC SPINE (NEURO) WITH AND WITHOUT CONTRAST Multi-sequence, multi-planar MRI of the thoracic spine was performed with and without intravenous contrast. COMPARISON: XR CHEST PA AND LATERAL 2 VIEWS 2024- FINDINGS: THORACIC SPINE: Alignment and Vertebrae: There is normal thoracic kyphosis. There is no spondylolisthesis. Vertebral body heights are maintained without evidence of compression fracture. Marrow: No focal aggressive osseous lesions are identified. Discs and Endplates: Normal intervertebral disc heights and signal. No significant spinal canal stenosis or neural from narrowing is seen. Spinal Cord: Normal. No spinal cord compression or signal abnormality. Conus medullaris terminates at L1. Contrast: No abnormal enhancement. Soft Tissue: The visualized prevertebral soft tissues are unremarkable. The paraspinal musculature is unremarkable. Other Findings: Mild degenerative disc disease changes of the cervical spine are incompletely visualized, most prominent at C4-C5 level Procedure Note Moe Ruffin MD - 01/23/2025 MRI THORACIC SPINE (NEURO) WITH AND WITHOUT CONTRAST Referring clinician's provided indication for this examination in Epic:Outside Radiology Order; weakness TECHNIQUE: MRI THORACIC SPINE (NEURO) WITH AND WITHOUT CONTRAST Multi-sequence, multi-planar MRI of the thoracic spine was performed withand without intravenous contrast. COMPARISON: XR CHEST PA AND LATERAL 2 VIEWS FINDINGS: THORACIC SPINE: Alignment and Vertebrae: There is normal thoracic kyphosis. There is nospondylolisthesis. Vertebral body heights are maintained without evidenceof compression fracture. Marrow: No focal aggressive osseous lesions are identified. Discs and Endplates: Normal intervertebral disc heights and signal. Nosignificant spinal canal stenosis or neural from narrowing is seen. Spinal Cord: Normal. No spinal cord compression or signal abnormality.Conus medullaris terminates at L1. Contrast: No abnormal enhancement. Soft Tissue: The visualized prevertebral soft tissues are unremarkable.The paraspinal musculature is unremarkable. Other Findings: Mild degenerative disc disease changes of the cervicalspine are incompletely visualized, most prominent at C4-C5 level IMPRESSION: 1. No significant degenerative disc disease changes, spinal canalstenosis or neural foramina narrowing in the thoracic spine. 2. No abnormal cord signal or enhancement in the thoracic spinal cord. us Tim Hoover MD IMG MR XSPECIALTY Final Resu lt * US Carotid Duplex Complete (Bilateral) (12/09/2024 2:45 PM EDT) Anatomical Region Laterality Modality Heart, Thoracic Vasculature, Neck Ultrasound 12/09/2024 3:30 PM EDT Narrative 12/09/2024 8:22 PM EDT US CAROTID DUPLEX COMPLETE (BILATERAL) Referring clinician's provided indication for this examination in Epic: Outside Radiology Order; TIA TECHNIQUE: A duplex ultrasound evaluation of the common carotid, internal carotid, external carotid, vertebral, and subclavian arteries was performed using figueroa scale, color duplex and spectral Doppler analysis. COMPARISON: No relevant prior examinations FINDINGS: Exam Quality: Technically adequate exam demonstrates: RIGHT Common Carotid Artery (cm/s): Proximal Systolic: 88 Proximal Diastolic: 36 Distal Systolic: 107 Distal Diastolic: 45 Internal Carotid Artery (cm/s): Proximal Systolic: 111 Proximal Diastolic: 42 Mid Systolic: 120 Mid Diastolic: 55 Distal Systolic: 109 Distal Diastolic: 60 External Carotid Artery (cm/s): Systolic: 49 Diastolic: 13 Vertebral Artery (cm/s): Systolic: 63 Diastolic: 31 Subclavian Artery (cm/s): Systolic: 130 Diastolic: 7 ICA/CCA Ratio: 1.1 ICA Stenosis: Normal ICA Plaque: None Visualized LEFT Common Carotid Artery (cm/s): Proximal Systolic: 75 Proximal Diastolic: 30 Distal Systolic: 94 Distal Diastolic: 45 Internal Carotid Artery (cm/s): Proximal Systolic: 113 Proximal Diastolic: 30 Mid Systolic: 91 Mid Diastolic: 38 Distal Systolic: 99 Distal Diastolic: 50 External Carotid Artery (cm/s): Systolic: 33 Diastolic: 9 Vertebral Artery (cm/s): Systolic: 42 Diastolic: 15 Subclavian Artery(cm/s): Systolic: 137 Diastolic: 8 ICA/CCA Ratio: 1.2 ICA Stenosis: Normal ICA Plaque: None Visualized Abbreviations: CCA = Common Carotid Artery. ICA = Internal Carotid Artery. ECA = External Carotid Artery. Vert = Vertebral Artery. ICA/CCA Ratio = maximal ICA PSV divided by the distal CCA PSV. DIRECT TEST FINDINGS: Right: Doppler flow velocities and waveform contours are within normal limits throughout the internal carotid artery, no plaque is visualized. No plaque is visualized in the common carotid artery. Unremarkable external carotid artery. Anterograde flow is noted in the vertebral artery. The subclavian artery is patent. Left: Doppler flow velocities and waveform contours are within normal limits throughout the internal carotid artery, no plaque is visualized. No plaque is visualized in the common carotid artery. Unremarkable external carotid artery. Anterograde flow is noted in the vertebral artery. The subclavian artery is patent. IMPRESSIONS: 1. No stenosis noted in the right internal carotid artery. 2. No stenosis noted in the left internal carotid artery. 3. No stenosis is noted in the common carotid arteries bilaterally. 4. Unremarkable external carotid arteries bilaterally. 5. Antegrade flow in the bilateral cervical vertebral arteries. 6. Normal examination of the bilateral subclavian arteries. INCIDENTAL FINDINGS: A thyroid nodule is noted in the right lobe measuring 1.3 x 0.7 x 1.0cm RECOMMENDATIONS: A dedicated thyroid ultrasound is recommended if clinically warranted. STENOSIS: Internal carotid artery stenosis by duplex ultrasonography has been validated by comparing findings with angiographic stenosis. NASCET methods were used, where the most severe stenosis represents the numerator, and the normal internal carotid artery diameter distal to the stenosis where the williamson are parallel represents the denominator. Procedure Note Amrit Carlos MD - 12/09/2024 US CAROTID DUPLEX COMPLETE (BILATERAL) Referring clinician's provided indication for this examination in Epic:Outside Radiology Order; TIA TECHNIQUE: A duplex ultrasound evaluation of the common carotid, internalcarotid, external carotid, vertebral, and subclavian arteries wasperformed using figueroa scale, color duplex and spectral Doppler analysis. COMPARISON: No relevant prior examinations FINDINGS: Exam Quality: Technically adequate exam demonstrates: RIGHT Common Carotid Artery (cm/s): Proximal Systolic: 88 Proximal Diastolic: 36 Distal Systolic: 107 Distal Diastolic: 45 Internal Carotid Artery (cm/s): Proximal Systolic: 111 Proximal Diastolic: 42 Mid Systolic: 120 Mid Diastolic: 55 Distal Systolic: 109 Distal Diastolic: 60 External Carotid Artery (cm/s): Systolic: 49 Diastolic: 13 Vertebral Artery (cm/s): Systolic: 63 Diastolic: 31 Subclavian Artery (cm/s): Systolic: 130 Diastolic: 7 ICA/CCA Ratio: 1.1 ICA Stenosis: Normal ICA Plaque: None Visualized LEFT Common Carotid Artery (cm/s): Proximal Systolic: 75 Proximal Diastolic: 30 Distal Systolic: 94 Distal Diastolic: 45 Internal Carotid Artery (cm/s): Proximal Systolic: 113 Proximal Diastolic: 30 Mid Systolic: 91 Mid Diastolic: 38 Distal Systolic: 99 Distal Diastolic: 50 External Carotid Artery (cm/s): Systolic: 33 Diastolic: 9 Vertebral Artery (cm/s): Systolic: 42 Diastolic: 15 Subclavian Artery(cm/s): Systolic: 137 Diastolic: 8 ICA/CCA Ratio: 1.2 ICA Stenosis: Normal ICA Plaque: None Visualized Abbreviations: CCA = Common Carotid Artery. ICA = Internal Carotid Artery. ECA =External Carotid Artery. Vert = Vertebral Artery. ICA/CCA Ratio = maximalICA PSV divided by the distal CCA PSV. DIRECT TEST FINDINGS: Right: Doppler flow velocities and waveform contours are within normallimits throughout the internal carotid artery, no plaque is visualized. [place] is visualized in the common carotid artery. Unremarkable externalcarotid artery. Anterograde flow is noted in the vertebral artery. Thesubclavian artery is patent. Left: Doppler flow velocities and waveform contours are within normallimits throughout the internal carotid artery, no plaque is visualized. [place] is visualized in the common carotid artery. Unremarkable externalcarotid artery. Anterograde flow is noted in the vertebral artery. Thesubclavian artery is patent. IMPRESSIONS: 1. No stenosis noted in the right internal carotid artery. 2. No stenosis noted in the left internal carotid artery. 3. No stenosis is noted in the common carotid arteries bilaterally. 4. Unremarkable external carotid arteries bilaterally. 5. Antegrade flow in the bilateral cervical vertebral arteries. 6. Normal examination of the bilateral subclavian arteries. INCIDENTAL FINDINGS: A thyroid nodule is noted in the right lobe measuring1.3 x 0.7 x 1.0cm RECOMMENDATIONS: A dedicated thyroid ultrasound is recommended ifclinically warranted. STENOSIS: Internal carotid artery stenosis by duplex ultrasonography hasbeen validated by comparing findings with angiographic stenosis. NASCETmethods were used, where the most severe stenosis represents thenumerator, and the normal internal carotid artery diameter distal to thestenosis where the williamson are parallel represents the denominator. us Tim Hoover MD CV US NEUROVASCULAR Final Re sult documented in this encounter Visit Diagnoses Diagnosis Weakness of lower extremity, unspecified laterality- Primary Numbness Disturbance of skin sensation TIA (transient ischemic attack) Unspecified transient cerebral ischemia TIA (transient ischemic attack) Unspecified transient cerebral ischemia documented in this encounter Additional Health Concerns Assessment Noted Time PHQ-2 Depression Total Score: 2 07/02/19 12:51 PM EST documented as of this encounter Care Teams Large Sheetfed Press Operator Relationship Specialty Start Date End Date Yin Flores PA [address] [place] [id number] PCP - General Transmission Tester 08/01/21 Baljit Hernandez LICSW [address] [place] [address] iCMP Social Work 06/26/21 Aida Montgomery MD [address] [place] [phone] [email or web address] Insurance Assigned Provider Family Medicine 11/08/24 documented as of this encounter Additional Source Comments The information contained in this document represents components of the legal health record. It is not the complete legal health record.[facility]
--- OUTSIDE RECORDS SUMMARY | 2025-03-23 11:39 | XMS_ITS | Encounter Summary ---
Author Organization [facility] Address [address] [place] [address] Phone Care Team Providers Care Hotel Front Desk Clerk Name Role Phone Baljit Hernandez CAR CHANGER Unavailable [phone] Yin Flores Primary Care Provider [phone] Isabella Reyes Unavailable [email or web address] Maribel Martinez Unavailable [email or web address] Aida Montgomery MD Unavailable [phone] Reason for Referral * MRI/CAT Scan - Closed Specialty Diagnoses / Procedures Referred By Contac t Referred To Contact Radiology Diagnoses Weakness Numbness Procedures MRI Lumbar Spine Tim Hoover MD [address] [place] [address], [address] [place] [address] Phone: tel: fax: [email or web address]:[email or web address] Referral ID Status Reason Start Date Expiration Date Visits Re quested Visits Authorized [id number] Closed 10/23/2023 10/22/2024 1 1 Encounter Details Date Type Department Care Team (Latest Contact Info) Description 10/23/2023 Transcribe Orders [facility] Department [address] [place] [address] [phone] Tim Hoover MD [address] [place] [address], [address] [place] [address] [email or web address] Weakness (Primary Dx); Numbness Social History Tobacco Use Types Packs/Day Years [...] as of this encounter Results * MRI LUMBAR SPINE (NEURO) WITHOUT CONTRAST (11/17/2023 7:20 AM EDT) Anatomical Region Laterality Modality L-spine Magnetic Resonan ce 11/18/2023 1:56 AM EDT Impressions 11/21/2023 12:00 AM EDT Mild spinal canal stenosis at L3-4. Mild to moderate neuroforaminal stenosis at L5-S1 and mild neuroforaminal stenosis at L3-4 and L4-5. L3-L4 endplate marrow edema, may reflect an axial pain generator. Narrative 11/21/2023 12:00 AM EDT MRI LUMBAR SPINE (NEURO) WITHOUT CONTRAST REQUESTED INDICATION: Outside Radiology Order; weakness TECHNIQUE: MRI LUMBAR SPINE (NEURO) WITHOUT CONTRAST COMPARISON: CT ABDOMEN/PELVIS (KIDNEY STONE) WITHOUT CONTRAST FINDINGS: ALIGNMENT: No spondylolisthesis. MARROW: No compression fracture or marrow replacing lesion. DISCS: Disc desiccation at L3-4 and L5-S1. L3-4 endplate marrow edema. CONUS: Normal appearance and terminates at L1-L2. PARASPINAL SOFT TISSUES: Within normal limits. FINDINGS BY LEVEL: T12-L1:No spinal canal or neuroforaminal stenosis. L1-2: No spinal canal or neuroforaminal stenosis. L2-3: No spinal canal or neuroforaminal stenosis. L3-4: Diffuse disc bulge contact the transiting L4 nerve roots, facet arthropathy, and thickening of ligamentum flavum. Mild spinal canal stenosis. Mild neuroforaminal stenosis. L4-5: Diffuse disc bulge, facet arthropathy, and thickening of ligamentum flavum. No spinal canal stenosis. Mild neuroforaminal stenosis. L5-S1: Diffuse disc bulge, facet arthropathy, and thickening of ligamentum flavum. No spinal canal stenosis. Mild to moderate neuroforaminal stenosis. Procedure Note Janet Marie MD - 11/21/2023 MRI LUMBAR SPINE (NEURO) WITHOUT CONTRAST REQUESTED INDICATION: Outside Radiology Order; weakness TECHNIQUE: MRI LUMBAR SPINE (NEURO) WITHOUT CONTRAST COMPARISON: CT ABDOMEN/PELVIS (KIDNEY STONE) WITHOUT CONTRAST FINDINGS: ALIGNMENT: No spondylolisthesis. MARROW: No compression fracture or marrow replacing lesion. DISCS: Disc desiccation at L3-4 and L5-S1. L3-4 endplate marrow edema. CONUS: Normal appearance and terminates at L1-L2. PARASPINAL SOFT TISSUES: Within normal limits. FINDINGS BY LEVEL: T12-L1:No spinal canal or neuroforaminal stenosis. L1-2: No spinal canal or neuroforaminal stenosis. L2-3: No spinal canal or neuroforaminal stenosis. L3-4: Diffuse disc bulge contact the transiting L4 nerve roots, facetarthropathy, and thickening of ligamentum flavum. Mild spinal canalstenosis. Mild neuroforaminal stenosis. L4-5: Diffuse disc bulge, facet arthropathy, and thickening of ligamentumflavum. No spinal canal stenosis. Mild neuroforaminal stenosis. L5-S1: Diffuse disc bulge, facet arthropathy, and thickening of ligamentumflavum. No spinal canal stenosis. Mild to moderate neuroforaminalstenosis. IMPRESSION: Mild spinal canal stenosis at L3-4. Mild to moderate neuroforaminal stenosis at L5-S1 and mild neuroforaminalstenosis at L3-4 and L4-5. L3-L4 endplate marrow edema, may reflect an axial pain generator. Tim Hoover MD IMG MR XSPECIALTY Final Resu lt documented in this encounter Visit Diagnoses Diagnosis Weakness- Primary Other malaise and fatigue Numbness Disturbance of skin sensation Weakness Other malaise and fatigue Numbness Disturbance of skin sensation documented in [...] documented as of this encounter Care Teams Hotel Front Desk Clerk Relationship Specialty Start Date End Date Yin Flores PA [address] [place] [address] PCP - General Telesales Agent 08/01/21 Baljit Hernandez LICSW [address] [place] [address] iCMP Social Work 06/26/21 Isabella Reyes [address] [place] [phone] Community Health Worker 02/02/23 09/22/24 Maribel Martinez [address] [place] [phone] [email or web address] [facility] Community Tractor Technician 03/16/24 03/16/24 Aida Montgomery MD [address] [place] [address] [email or web address] Insurance Assigned Provider Family Medicine 11/08/24 documented as of this encounter Additional Source Comments The information contained in this document represents components of the legal health record. It is not the complete legal health record.[facility]
--- OUTSIDE RECORDS SUMMARY | 2025-03-23 11:39 | XMS_ITS | Clinical Summary ---
Author Organization [facility] Address [address] [place] [address] Phone Care Team Providers Care Bale Stacker Name Role Phone Baljit Hernandez [employer]ARM [employer] GARD[employer] WORK[employer] Unavailable [phone] Yin Flores Primary Care Provider [phone] Aida Montgomery MD Unavailable [phone] Allergies No known active allergies Medications OMRON BP MONITOR-5 SERIES (Arm circ 32-42 cm/12.6-16.5 in) 5 Active SYMBICORT 160-4.5 mcg/actuation inhaler INHALE TWO PUFFS BY MOUTH TWICE A DAY; FOR MODERATE PERSISTENT ASTHMA STOP ADVAIR)) 5 Active VITAMIN D3 25 mcg (1,000 unit) capsule Take 1 capsule by mouth every morning. 5 Active cyclobenzaprine (FLEXERIL) 10 MG tablet take one tablet by mouth daily at bedtime as needed 5 Active ARTHRITIS PAIN, DICLOFENAC, 1 % Gel APPLY 2 GRAMS TO THE AFFECTED AREA TOPICALLY 4 TIMES A DAY. 5 Active DULoxetine (CYMBALTA) 60 MG capsule Take 1 capsule by mouth every morning. 5 Active levETIRAcetam (KEPPRA) 250 MG IMMEDIATE release tablet Take 1 tablet by mouth 2 (two) times a day. Only been taking at night 5 Active lisinopril (PRINIVIL,ZESTRIL) 40 MG tablet TAKE ONE TABLET BY MOUTH EVERY DAY DOSE INCREASE 5 Active loratadine (CLARITIN) 10 mg tablet Take 1 tablet by mouth every morning. 5 Active omeprazole (PRILOSEC) 20 MG capsule Take 1 capsule by mouth every morning. 5 Active ondansetron (ZOFRAN-ODT) 8 MG disintegrating tablet DISSOLVE ONE TABLET BY MOUTH THREE TIMES A DAY NEEDED 5 Active pregabalin (LYRICA) 150 MG capsule Take 1 capsule by mouth 2 (two) times a day. 5 Active promethazine (PHENERGAN) 25 MG tablet Take 25 mg by mouth every 4 (four) hours as needed. 5 Active traMADoL (ULTRAM) 50 mg tablet Take 1 tablet by mouth 2 (two) times a day as needed for pain (specific location in comments). 5 Active triamcinolone acetonide 0.1 % ointment APPLY A THIN LAYER TO AFFECTED AREA S) TWO TIMES A DAY 5 Active oxyCODONE 5 MG immediate release tablet Take 1 tablet (5 mg total) by mouth every 6 (six) hours as needed for pain (specific location in comments). Partial fill ok 5 tablet 5 Active Active Problems Patient Care Coordination No te Formatting of this note migh t be different from the original. Patient is high risk for these reasons: Medical and psychosocial concerns. Living Situation: Lives in [address] in [place]. Adult son will be moving in with her as well. Functional Status (ADL's/iADLs): Receives homemaking assistance 3 days per week through Home Care Assistance Program. Family/Social Supports: Supportive adult children, boyfriend. Goals of Care (HCP/Molst): HCP on file. Daughter, Danny, is identified health care agent. Community Supports (e.g. VNA, DME Vendors, Elder Services): Has assistance through Home Care Assistance Program. Transportation: Has vehicle and has historically driven self, but due to recent medical issues unable to drive. Utilizing PT-1. Medication Management System/Specialized Pharmacy Needs: Picks up and manages medications independently. 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 Has pending SSI application and receiving EAEDC/SNAP benefits. Other Supports and Care Needs: Housing/financial assistance. Problem Noted Date Diagnosed Date Trigger finger, right index finger 12/16/2024 Hypertension 12/14/2024 Asthma 12/14/2024 Chronic pain 12/14/2024 Epilepsy 12/14/2024 Encounters Date Type Department Care Team Description 03/20/2025 [facility]ORES SYSTEM GENERATED External System Generated Encounter [address] [place] [address] Unknown, Unknown, 03/20/2025 Enrollment [facility] - [facility] Care [address] [place] [address] 03/02/2025 Patient Outreach [facility] [address] [place] [address] Baljit Hernandez LICSW iCMP Care Plan Update (iCMP Care Plan Update) 02/03/2025 10:15 AM EDT Office Visit [facility] [address] [place] [address] Francie Shaw, Kishore Stockton, HUMERA Trigger finger, right index finger (Primary Dx) 01/30/2025 Patient Outreach [facility] [address] [address] Baljit Hernandez LICSW iCMP Care Plan Update (iCMP Care Plan Update); Care Coordination ([facility] Outreach) 01/20/2025 6:40 PM EDT - 01/20/2025 11:59 PM EDT Hospital Encounter [facility], [address] [address] Tim Hoover MD Discharge Disposition: Home or Self Care 01/06/2025 Patient Outreach [facility] [address] [place] [address] Baljit Hernandez LICSW Care Coordination ([facility] Outreach); iCMP Care Plan Update (iCMP Care Plan Update) 12/26/2024 11:40 AM EDT Office Visit [facility] [address] [place] [address] Francie Shaw PA-C Trigger index finger of right hand (Primary Dx) 11/25/2024 Procedure Pass [facility], [facility] - [address] [address] from Last 3 Months Family History Medical History Relation Comments CV disease Maternal Grandmother 2 Relation Status Comments Maternal Grandmother 1 Maternal Grandmother 2 Social History Tobacco Use Types Packs/Day Years Used Date Smoking Tobacco: Former Cigarettes Smokeless Tobacco: Never Tobacco Cessation:Counseling Given: Not Answered Alcohol Use Standard Drinks/Week Comments No 0 [...] Orientation Straight 11/18/2017 12 :10 AM EDT Last Filed Vital Signs Vital Sign Reading Time Taken Comments Blood Pressure 154/90 12/16/2024 11:45 AM EDT Pulse 77 12/16/2024 12:00 PM EDT Temperature 36.2 C (97.2 F) 12/16/2024 12:00 PM EDT Respiratory Rate 17 12/16/2024 12:00 PM EDT Oxygen Saturation 95% 12/16/2024 12:00 PM EDT Inhaled Oxygen Concentration - - Weight 66.7 kg (147 lb) 12/15/2024 12:21 PM EDT Height 149.9 cm (4' 11 ) 12/15/2024 12:21 PM EDT Body Mass Index 29.69 12/15/2024 12:21 PM EDT Plan of Treatment Health Maintenance Due Date Last Done Comments SMOKING Hx and SMOKELESS TOBACCO SCREENING 1983 HIV ONE-TIME SCREENING (18-65 YEARS) 1988 MAMMOGRAM 2010 PNEUMOCOCCAL VACCINES (50+ years) (2 of 2 - PCV) 10/30/2013 10/30/2012, 12/12/2010 COLOGUARD 2015 COLONOSCOPY 2015 COLORECTAL CANCER SCREENING 2015 FIT TEST 2015 FOBT 2015 SIGMOIDOSCOPY 2015 VIRTUAL COLONOSCOPY 2015 ZOSTER VACCINES (1 of 2) 2020 DEPRESSION SCREENING 07/02/2022 07/02/2021 INFLUENZA VACCINE (#1) 2025 03/17/2018 COVID-19 VACCINE (3 - season) 2025 12/07/2020, 11/09/2020 BLOOD PRESSURE 06/07/2025 12/06/2024 CREATININE LEVEL 08/30/2025 08/30/2024, , 08/17/2021, Additional history exists POTASSIUM LEVEL 08/30/2025 08/30/2024, 06/22, 08/17/2021, Additional history exists PAP SMEAR 09/04/2025 09/04/2022, 06/11/2020 LIPID PANEL 06/17/2027 06/17/2022 SCREENING FOR DIABETES 08/31/2027 08/30/2024 Adult Td,Tdap Booster 06/11/2031 06/11/2021, 011 HEPATITIS A VACCINES Aged Out 05/25/2015, 10/05/2014, 09/05/2013 No longer eligible based on patient's age to complete this topic HEPATITIS C SCREENING Completed 06/17/2022 HIB VACCINES Aged Out No longer eligi ble based on patient's age to complete this topic MENINGOCOCCAL VACCINES (ACWY) Aged Out No longer eligible based on patient's age to complete this topic MENINGOCOCCAL VACCINES (B) Aged Out N o longer eligible based on patient's age to complete this topic Medical Devices Not on file Procedures Procedure Name Priority Date/Time Associated Diagnosis Comments MRI THORACIC SPINE (NEURO) WITH AND WITHOUT CONTRAST Routine 01/20/2025 7:41 PM EDT Weakness of lower extremity, unspecified laterality Numbness BASIC METABOLIC PANEL STAT 08/30/2024 1:23 PM EDT PAP TEST Routine 09/04/2022 12:00 AM EDT from Last 3 Months or Most Recently Relevant to Health Maintenance Results * MRI THORACIC SPINE (NEURO) WITH [...] IMG MR XSPECIALTY Final Resu lt * Basic metabolic panel (08/30/2024 1:23 PM EDT) SODIUM 144 133 - 146 mmol/L [facility] CHLORIDE 107 96 - 108 mmol/L [facility] POTASSIUM 3.5 3.3 - 5.1 mmol/L [facility] CO2 28 21 - 35 mmol/L [facility] BUN 16 6 - 19 mg/dL [facility] CREATININE 0.60 0.5 - 1.5 mg/dL [facility] GLUCOSE 89 70 - 99 mg/dL [facility] CALCIUM 8.8 8.4 - 10.3 mg/dL [facility] EGFR 107 >59 mL/min/1.7 3m2 [facility] Comment:Estimated glomerular filtration rate calculated using the CKD-EPI refit equation. ANION GAP 13 10 - 20 mmol/L [facility] Blood 08/30/2024 1:23 PM EDT 08/30/2024 1:26 PM EDT us Ibrahima Espinoza MD LAB BLOOD ORDERABLES Fin al Result [address] [address] * Pap Test (09/04/2022 12:00 AM EDT) 09/04/2022 09/05/2022 9:3 6 AM EDT Narrative SEE NARRATIVE - 09/09/2022 10:23 AM EDT [address] [address] Stacker Tender: Radha Phillips MD OUTSIDE OPERATOR Cytology Report FINAL DIAGNOSIS A. PAP SMEAR (SUREPATH) CE: SPECIMEN ADEQUACY: Satisfactory for evaluation; transformation zone present. INTERPRETATION: NEGATIVE FOR INTRAEPITHELIAL LESION OR MALIGNANCY. Coccobacilli consistent with shift in lia Electronically Signed Out By: ANASTACIA Galloway(ASCP) The Pap test is a screening test primarily for squamous cancers and precursors and has associated false-negative and false-positive results. New technologies such as liquid-based preparations may decrease but will not eliminate all false-negative results. Regular sampling and follow-up of unexplained clinical signs and symptoms are recommended to minimize false negative results. PROCEDURES/ADDENDA HPV Testing (Requested) Ordered Date: 09/05/2022 A. PAP SMEAR (SUREPATH) CE: Human Papilloma Virus Test NEGATIVE for high-risk Human Papilloma Virus types 16, 18, 45 and the Other high risk probe set (Includes 31, 33, 35, 39, 51, 52, 56, 58, 59, 66, 68) Note: Testing performed by [facility] HR-HPV analysis. Clinical correlation is advised. This HPV test was performed at [facility], [address] [place] [address]. This test has been FDA approved for [facility] cervical cytology specimens. The accuracy and precision of this test for all other specimen sources has been verified in the Cytopathology Laboratory of the [facility] and has not been cleared or approved by the U.S. Food and Drug Administration. Clinical correlation is advised. CLINICAL HISTORY Date of Last Menstrual Period: Not Provided Menstrual History: Unknown Other Clinical Conditions: Screening Pap SPECIMEN SOURCE A: PAP SMEAR (SUREPATH) CE Patient Name: CHICHO WILLOUGHBY : 1970 (Age: 52) Sex: F Institution: [facility] Location: [facility] Date of Collection: 09/04/2022 Date of Reported: 09/09/2022 10:23 Results to: Meredith Chen PA-C Meredith SCOTT CYTOLOGY ORDERABLES Final Resu lt SEE NARRATIVE from Last 3 Months or Most Recently Relevant to Health Maintenance Insurance [facility] [place] [address] [place] [address] [place] [address] [place] [address] ACO Advance Directives For more information, please contact: [phone] (9AM - 5PM [facility], Thursday-Thursday) Documents on File Type Date Recorded Patient Corporate Responsibility Officer Expl anation Healthcare Proxy 01/29/2022 9:43 AM Danny Cameron [facility] Proxy - [email or web address].pdf Healthcare Agents on File Name Relationship Healthcare Agent Relationshi p Communication Danny Cameron Daughter .Primary Health Care Agent (Proxy form on file) Care Teams Bale Stacker Relationship Specialty Start Date End Date Yin Flores PA [address] [place] [id number] PCP - General Blow Mold Operator 08/01/21 Baljit Hernandez [address] [address] iCMP Social Work 06/26/21 Aida Montgomery MD [address] [place] [address] [email or web address] Insurance Assigned Provider Family Medicine 11/08/24 Additional Source Comments The information contained in this document represents components of the legal health record. It is not the complete legal health record.[facility]
--- OUTSIDE RECORDS SUMMARY | 2025-03-23 11:39 | XMS_ITS | Encounter Summary ---
Author Organization [facility] Address [address] [place] [address] Phone Care Team Providers Care Furniture Stainer Name Role Phone Baljit Hernandez ALYCE Unavailable [phone] Yin Flores Primary Care Provider [phone] Aida Montgomery MD Unavailable [phone] Reason for Referral * Outpatient Procedure - Closed Specialty Diagnoses / Procedures Referred By Niyah sanders Referred To Contact Radiology Diagnoses Abnormal ultrasound Procedures US Thyroid Gland Tim Hoover MD [address] [place] [address], [address] [place] [address] Phone: tel: fax: [email or web address] Referral ID Status Reason Start Date Expiration Date Visits Re quested Visits Authorized [id number] Closed 12/14/2024 12/14/2025 1 1 Encounter Details Date Type Department Care Team (Latest Contact Info) Description 12/14/2024 Transcribe Orders Virtual Department [address] [place], [place] [id number] Tim Hoover MD [address] [place] [address], [address] [place], [place] [phone] [email or web address] Abnormal ultrasound (Primary Dx) Social History Tobacco Use Types [...] documented as of this encounter Results * US Thyroid Gland (12/19/2024 2:42 PM EDT) MGB IMG TRACK LAYER COMMENT Thyroid FNA recommended . [facility] Anatomical Region Laterality Modality Neck, Head, Chest Ultrasound 12/19/2024 3:31 PM EDT Impressions 12/19/2024 3:38 PM EDT 1. Right mid gland thyroid nodule measures 1.3 cm with punctate echogenic foci. Thyroid FNA recommended. 2. Increased thyroid gland vascularity diffusely. Correlate with laboratory values and the entire clinical scenario regarding the possibility of thyroiditis. ACR TI-RADS risk category: TR5 (>/= 7 points) ACR TI-RADS recommendation: Fine needle aspiration. ACR TI-RADS recommendations TR5 (>/= 7 points) - FNA if >/= 1cm, follow-up if 0.5 - 0.9 cm every year for 5 years TR4 (4-6 points) - FNA if >/= 1.5cm, follow-up if 1 - 1.4 cm in 1, 2, 3 and 5 years TR3 (3 points)- FNA if >/= 2.5cm, follow-up if 1.5 - 2.4 cm in 1, 3 and 5 years TR2 (2 points) & TR1 (0 points) - No FNA and no follow-up indicated These guidelines for management of thyroid nodules are based on the ACR Thyroid Ultrasound Reporting Lexicon, August 2016: https://doi.org/10.1016.j.jacr.2017.01.046 A clinically significant result was initiated on 12/19/2024 3:36 PM, Message ID [id number]. Narrative 12/19/2024 3:38 PM EDT Procedure: US THYROID GLAND 12/19/2024 2:31 PM US Indications: Outside Radiology Order; nodule on carotid ultrasound. Comparison: No relevant recent comparisons. Technique: Two-dimensional real-time grayscale ultrasound of the thyroid bed and neck was performed, with color Doppler imaging. FINDINGS: Total number of nodules >/= 1 cm: 1 Number of spongiform nodules >/= 2 cm not described below (TR1): 0 Number of mixed cystic and solid nodules >/= 1.5 cm not described below (TR2): 0 Background echogenicity: The gland is mildly heterogeneous. Vascularity: There is diffusely increased vascularity to the gland. RIGHT LOBE: 4.7 x 1.4 x 1.6 cm. Nodule #: 1 Maximum size: 1.3 cm Position: Mid gland Composition: Solid/almost completely solid (2 pts) Echogenicity: Hypoechoic (2 pts) Shape: Nlhtw-sbde-yjbx (0) Margins: Smooth (0 pts) Echogenic Foci: Punctate echogenic foci (3 pts) Additional Echogenic foci: None (0 pts) Significant change is size (>/= 20% in two dimensions or increase in 2mm): N/A Change in Features: N/A ACR TI-RADS total points: 7 ACR TI-RADS risk category: TR5 (>/= 7 points) ACR TI-RADS recommendation: Fine needle aspiration LEFT LOBE: 3.4 x 1.2 x 1.6 cm. No suspicious nodules. Hypoechoic solid nodule in the lower gland measures 0.5 cm without suspicious features. ISTHMUS: 0.2 cm. No suspicious nodules are identified. Cervical lymphadenopathy: None. Parathyroid adenoma: None. Procedure Note Tim Meeks MD - 12/19/2024 Procedure: US THYROID GLAND 12/19/2024 2:31 PM US Indications: Outside Radiology Order; nodule on carotid ultrasound. Comparison: No relevant recent comparisons. Technique: Two-dimensional real-time grayscale ultrasound of the thyroidbed and neck was performed, with color Doppler imaging. FINDINGS: Total number of nodules >/= 1 cm: 1 Number of spongiform nodules >/= 2 cm not described below (TR1): 0 Number of mixed cystic and solid nodules >/= 1.5 cm not described below(TR2): 0 Background echogenicity: The gland is mildly heterogeneous. Vascularity: There is diffusely increased vascularity to the gland. RIGHT LOBE: 4.7 x 1.4 x 1.6 cm. Nodule #: 1 Maximum size: 1.3 cm Position: Mid gland Composition: Solid/almost completely solid (2 pts) Echogenicity: Hypoechoic (2 pts) Shape: Inkps-mcbl-skxm (0) Margins: Smooth (0 pts) Echogenic Foci: Punctate echogenic foci (3 pts) Additional Echogenic foci: None (0 pts) Significant change is size (>/= 20% in two dimensions or increase in 2mm):N/A Change in Features: N/A ACR TI-RADS total points: 7 ACR TI-RADS risk category: TR5 (>/= 7 points) ACR TI-RADS recommendation: Fine needle aspiration LEFT LOBE: 3.4 x 1.2 x 1.6 cm. No suspicious nodules. Hypoechoic solid nodule in the lower gland measures0.5 cm without suspicious features. ISTHMUS: 0.2 cm. No suspicious nodules are identified. Cervical lymphadenopathy: None. Parathyroid adenoma: None. IMPRESSION: 1. Right mid gland thyroid nodule measures 1.3 cm with punctate echogenicfoci. Thyroid FNA recommended. 2. Increased thyroid gland vascularity diffusely. Correlate withlaboratory values and the entire clinical scenario regarding thepossibility of thyroiditis. ACR TI-RADS risk category: TR5 (>/= 7 points) ACR TI-RADS recommendation: Fine needle aspiration. ACR TI-RADS recommendations TR5 (>/= 7 points) - FNA if >/= 1cm, follow-up if 0.5 - 0.9 cm every yearfor 5 years TR4 (4-6 points) - FNA if >/= 1.5cm, follow-up if 1 - 1.4 cm in 1, 2, 3and 5 years TR3 (3 points)- FNA if >/= 2.5cm, follow-up if 1.5 - 2.4 cm in 1, 3 and 5years TR2 (2 points) & TR1 (0 points) - No FNA and no follow-up indicated These guidelines for management of thyroid nodules are based on the ACRThyroid Ultrasound Reporting Lexicon, August 2016: https://doi.org/10.1016.j.[email or web address] A clinically significant result was initiated on 12/19/2024 3:36 PM,Message ID [id number]. Tim Hoover MD [facility] [place]ROID Final Result documented in this encounter Visit Diagnoses Diagnosis Abnormal ultrasound- Primary Abnormal ultrasound documented in this encounter Additional Health Concerns Assessment Noted Time PHQ-2 Depression Total Score: 2 07/02/19 22 12:51 PM EST documented as of this encounter Care Teams Furniture Stainer Relationship Specialty Start Date End Date Yin Flores PA [address] [place] [address] PCP - General Banana Handler 08/01/21 Baljit Hernandez LICSW [address] [place] [address] iCMP Social Work 06/26/21 Aida Montgomery MD [address] [place] [address] [email or web address] Insurance Assigned Provider Family Medicine 11/08/24 documented as of this encounter Additional Source Comments The information contained in this document represents components of the legal health record. It is not the complete legal health record.[facility]
--- OUTSIDE RECORDS SUMMARY | 2025-03-23 11:39 | XMS_ITS | Encounter Summary ---
Author Organization [facility] Address [address] [facility] [address] [facility] [address] [place] [address] Phone Care Team Providers Care Box Attacher Name Role Phone Samy Alva MD Unavailable + Baljit Hernandez Unavailable [phone] Yin Flores Primary Care Provider [phone] Chata Abebe MD Unavailable [phone] Nick Canales MD Unavailable Nelly Paz Unavailable [email or web address] Yuli AlvarezW Unavailable mello Sarah Andersen RN Unavailable Isabella Reyes [email or web address] Nelly Paz Unavailable [email or web address] Maribel Martinez Unavailable juan [email or web address] Aida Montgomery MD Unavailable [phone] Encounter Details Date Type Department Care Team (Late st Contact Info) Description 08/17/2021 Procedure Pass [facility], [facility] Scan - [address] [id number] Social History Tobacco Use Types Packs/Day Years [...] AM EDT documented as of this encounter Functional Status * Calculated C-SSRS Risk Score (Lifetime/Recent) Answer Date of Assessment Author No Risk Indicated 08/17/2021 11:16 AM Lakeisha Bautista RN * [place] Suicide Severity Rating Scale (Screener/Recent Self-Report) Question Answer Date of Assessment Author 1. Wish to be (Past 1 Month) No 08/17/2021 11:16 AM Lakeisha Becerril RN 2. Non-Specific Active Suici ousmane Thoughts (Past 1 Month) No 08/17/2021 11:16 AM Edwige Becerril cia, RN 6. Suicidal Behavior (Lifetime) No 11:16 AM Lakeisha Becerril RN documented as of this encounter Plan of Treatment Not on file documented as of this encounter Visit Diagnoses Not on filedocumented in this encounter Additional Health Concerns Infection Onset Date Last Indicated Resolved Time CoV-Risk 07/07/2023 07/07/2023 07/18/2023 1:22 AM EST CoV-Risk 12/19/2023 12/19/2023 12/19/2023 12:4 3 PM EDT COVID-19 12/19/2023 12/19/2023 01/09/2024 1:23 AM EDT CoV-Risk 08/30/2024 08/30/2024 09/10/2024 1:21 AM EDT Influenza B 08/30/2024 08/30/2024 09/06/2024 1:22 AM EDT Assessment Noted Time PHQ-2 Depression Total Score: 2 07/02/19 12:51 PM EST documented as of this encounter Care Teams Box Attacher Relationship Specialty Start Date End Date Yin Flores PA [address] [place] [address] PCP - General Community Health Nurse Supervisor 08/01/21 Samy Alva MD [address] [place] [address] [email or web address] Insurance Assigned Provider 08/25/20 08/25/21 Baljit Hernandez LICSW [address] [place] [phone] [facility] Social Work 06/26/21 Chata Abebe MD [address] [place] [address] Insurance Assigned Provider 08/25/21 11/30/21 Nick Canales MD [address] [place] [address] Insurance Assigned Provider 11/30/21 02/28/23 Nelly Paz [address] [place] [phone] [email or web address] Community Lead Cargo Mover 11/26/22 11/27/22 Yuli Alvarez LCSW [address] [place] [phone] [email or web address] Hoist Mechanic 12/09/22 03/04/23 Sarah Andersen, DWIGHT [address] [place] [phone] [facility] Marketing Communications Associate 12/26/22 01/04/23 Isabella Reyes [address] [place] [phone] Community Health Worker 02/02/23 09/22/24 Nelly Paz [address] [place] [address] [email or web address] [facility] Community Lead Cargo Mover 02/10/23 02/12/23 Maribel Martinez [address] [place] [phone] [email or web address] [facility] Community Lead Cargo Mover 03/16/24 03/16/24 Aida Montgomery MD [address] [place] [address] [email or web address] Insurance Assigned Provider Family Medicine 11/08/24 documented as of this encounter Additional Source Comments The information contained in this document represents components of the legal health record. It is not the complete legal health record.[facility]
--- OUTSIDE RECORDS SUMMARY | 2025-03-23 11:39 | XMS_ITS | Encounter Summary ---
Author Organization [facility] Address [address] [place] [address] Phone Care Team Providers Care Seam Stayer Name Role Phone Baljit Hernandez ALYCE Unavailable [phone] Yin Flores Primary Care Provider [phone] Aida Montgomery MD Unavailable [phone] Encounter Details Date Type Department Care Team (Late st Contact Info) Description 03/20/2025 Enrollment [facility] - Primary Care [address] [place] [id number] Social History Tobacco Use Types Packs/Day Years [...] documented as of this encounter Care Teams Seam Stayer Relationship Specialty Start Date End Date Yin Flores PA [address] [place] [phone] PCP - General General Office Worker 08/01/21 Baljit Hernandez LICSW [address] [place] [phone] iCMP Social Work 06/26/21 Aida Montgomery MD [address] [place] [id number] [email or web address] Insurance Assigned Provider Family Medicine 11/08/24 documented as of this encounter Additional Source Comments The information contained in this document represents components of the legal health record. It is not the complete legal health record.[facility]
--- OUTSIDE RECORDS SUMMARY | 2025-03-23 11:39 | XMS_ITS ---
Author Organization [facility] Address [address] [place] [address] Phone Care Team Providers Care Direct Care Worker Name Role Phone Baljit Hernandez Unavailable [phone] Yin Flores Primary Care Provider [phone] Aida Montgomery MD Unavailable [phone] Care Management Status:Enrolled (Active) Start date:07/07/2023 Enrollment date:07/07/2023 Current support & services provided:[facility] Related social drivers of health:Housing Stability, Child or Family Care, Education, Food, Unemployment, Paying for Meds, Paying Utility Bills, Transportation, Digital Access, SNAP/WIC Case Team Name Relationship Phone Email Baljit MEAD Registered Nurse(Responsible Staff) [phone] Didi Gamble PHCM Service Unit Operator [employer] [email or web address] Continued Care and Services Coordination
--- OUTSIDE RECORDS SUMMARY | 2025-03-23 11:39 | XMS_ITS | Encounter Summary ---
Author Organization [facility] Address [address] [place] [address] Phone Care Team Providers Care Aircraft Design Engineer Name Role Phone Baljit Hernandez ALYCE Unavailable [phone] Yin Flores Primary Care Provider [phone] Aida Montgomery MD Unavailable [phone] Encounter Details Date Type Department Care Team (Late st Contact Info) Description 12/16/2024 Procedure Pass OR Admitting Dept - Virtual Department [address] [place] [address] Social History Tobacco Use Types Packs/Day Years [...] documented as of this encounter Care Teams Aircraft Design Engineer Relationship Specialty Start Date End Date Yin Flores PA [address] [place] [id number] PCP - General Sponsorship Coordinator 08/01/21 Baljit Hernandez LICSW [address] [place] [phone] [email or web address] Social Work 06/26/21 Aida Montgomery MD [address] [place] [phone] [email or web address] Insurance Assigned Provider Family Medicine 11/08/24 documented as of this encounter Additional Source Comments The information contained in this document represents components of the legal health record. It is not the complete legal health record.[facility]
== END 2025-03-23 11:05 | disposition home or self-care (01) ==
LOC: HO.HGI 10:13
PROVIDERS: Visit Provider Internal Medicine Gastroenterology
DX: K21.9 Gastro-esophageal reflux disease without esophagitis (principal); R13.14 Dysphagia, pharyngoesophageal phase; K29.70 Gastritis, unspecified, without bleeding; B96.81 Helicobacter pylori [H. pylori] as the cause of diseases classified elsewhere; K59.09 Other constipation; R10.84 Generalized abdominal pain; R11.0 Nausea; R68.81 Early satiety
CPT/HCPCS: 99214

== ENCOUNTER 2025-05-26 15:02 | Emergency (ER) | payer OTHER, SELFPAY ==
--- NOTE | ~2025-05-26 | CT_ITS ---
CLINICAL HISTORY: b l lower quadrant pain CT abdomen and pelvis with IV contrast. COMPARISON: CT abdomen and pelvis dated 09/02/24 at 13:39 EDT FINDINGS: Partially visualized lung bases are unremarkable. No focal hepatic lesion. Normal gallbladder. Normal spleen. Normal pancreas. Normal adrenal glands. Symmetric renal enhancement. Right renal cystic lesion measuring 3 mm. No hydronephrosis. Appendix is not definitively identified. No right lower quadrant or pericecal inflammatory changes. Mild colonic stool burden. No bowel obstruction. No mesenteric or retroperitoneal lymphadenopathy. Normal abdominal aorta. Normal appearance of the urinary bladder. Dystrophic calcification present within the uterus likely representing a calcified fibroid. No adnexal mass. Moderate lower lumbar spondylosis. No acute fracture or suspicious bone lesion. IMPRESSION: 1. Moderate colonic stool burden. No bowel obstruction. 2. Appendix is not definitively identified. No secondary evidence of appendicitis. This document has been electronically signed by: Jas Burt MD on 05/26/2025 18:22:55
--- NOTE | ~2025-05-26 | XR_ITS ---
CLINICAL HISTORY: cough x 2 months Single view of the chest. COMPARISON: XR chest dated 02/11/25 at 20:35 EDT FINDINGS: Normal heart and mediastinal contours. No consolidation. No pleural effusion or pneumothorax. No acute fracture. IMPRESSION: 1. No consolidation. This document has been electronically signed by: Jas Burt MD on 05/26/2025 17:30:03
[2025-05-26 15:19] VITALS: BP 123/76; BP 127/80; PULSE 74; PULSE 80; RESP 18; TEMP 36.6; O2SAT 100; O2SAT 98; BMI 31.2
[2025-05-26 15:52] LABS: MANUAL DIFF FLAG NO
[2025-05-26 16:00] VITALS: BP 127/80; PULSE 84; RESP 18; O2SAT 97
[2025-05-26 16:03] LABS: Hematocrit 39.5 % (37.0-47.0); Hemoglobin 12.9 g/dl (12.0-16.0); Imm Gran Abs Auto 0.03 X10*3/uL (0.00-0.03); Imm Gran Pct Auto 0.3 % (0.0-0.4); Lymphocytes Absolute Auto 3.3 X10*3/uL (1.2-4.9); Mean Corpuscular HGB Conc 32.7 g/dl (31.0-35.0); Mean Corpuscular Hemoglobin 30.4 pg (27.0-33.0); Mean Corpuscular Volume 93.2 fL (80.0-98.0); NRBC Abs Auto 0.000 X10*3/uL (0.0-0.012); NRBC Pct Auto 0.0 /100WBC (0.0-0.2); Platelet Count 270 X10*3/uL (160-400); Red Blood Count 4.24 X10*6/uL (4.20-5.50); White Blood Count 10.4 X10*3/uL (4.8-10.8)
--- NOTE | 2025-05-26 16:12 | ED.SEIZURE ---
HPI - Seizure General Chief Complaint: Seizure Stated Complaint: Had a seizure in the dentist chair. alert now Time Seen by Provider: 05/26/25 16:06 Source: patient, EMS, RN notes reviewed and old records reviewed Mode of arrival: EMS Limitations: no limitations History of Present Illness ED Provider: Erica Warren PA-C HPI Narrative: 54-year-old female with past medical history significant for epilepsy, GERD, anxiety, hypertension, multiple sclerosis, bilateral carpal tunnel syndrome with the surgical release, who presents to the emergency department today via EMS after having a witnessed seizure in her dentist chair. Patient reports she usually feels when she is about to have a seizure. She had a busy morning and reports that she forgot to take her medication this morning. She last visit her your neurologist 2 days ago in [place] who told her to double her antiepileptic medication to twice a day instead of once a day but she can not recall which 1 it was she does use the [employer] shot for which I was able to call and confirm that it is Keppra she is to take 250 mg twice a day she has not had a new script filled presuming that her neurologist told her to double this I would presume that it is 500 twice a day I will do loading dose of 1 g. She is also complaining of diffuse abdominal pain reporting it as approximately 8/10. She is not endorsing any urinary symptoms or back pain but does feel nauseous. She denies any EtOH or drug use. Patient has taken tramadol before in the past for issues with her teeth. She states due to her seizure history she has broken several teeth and has dentures for hence why she was at the dentist appointment today to check on her dental prosthesis for which she is able to take out of her mouth and show me. She has not had anything to eat today. She typically skips breakfast as she is not hungry so this is not completely abnormal as she came here after going to the dentist. She also stated that her neurologist told her she could not drive on Thursday due to her seizure history this should be ongoing until further cleared. She is not endorsing any chest pain shortness of breath but does report that she has had a cough since March it is dry and nonproductive she is denying any nasal congestion. She recently did have a sinus infection last week and was on amoxicillin did not feel like it was working in any way and reports that her tonsils were swollen for hence why she saw the dentist. She is not endorsing any difficulty with swallowing today. She denies any diarrhea. No rashes. She reports no fevers or other body aches other than her abdominal pain for which she is growing and holding onto it. She denies any abdominal history. Patient did not soil herself, fall to the ground, or bite her tongue. MD complaint: seizure Related Data Home Medications ?Medication ?Instructions ?Recorded ?Confirmed albuterol sulfate 2.5 mg/3 mL 1 mg inhalation Q6H PRN Shortness 12/31/21 03/23/25 (0.083 %) solution for nebulization Of Breath duloxetine 60 mg capsule,delayed 60 mg PO DAILY 03/19/23 03/23/25 release lisinopril 40 mg tablet 40 mg PO DAILY 03/19/23 03/23/25 tramadol 50 mg tablet 50 mg PO DAILY PRN pain 06/23/24 03/23/25 Previous Rx's ?Medication ?Instructions ?Recorded acetaminophen 500 mg capsule 500 mg PO QID PRN fever or pain 06/23/21 #14 caps albuterol sulfate 90 mcg/actuation 2 puff inhalation QID PRN 06/28/23 aerosol inhaler shortness of breath or wheezing #8.5 grams sennosides 8.6 mg-docusate sodium 2 tab-cap (2 x 8.6-50 mg) PO 11/27/23 50 mg tablet (Senna with Docusate BEDTIME 60 days #120 tabs Sodium) dicyclomine 20 mg tablet 20 mg PO TID PRN for abdominal 05/05/24 pain #20 tabs ondansetron 4 mg disintegrating 4 mg PO Q8H PRN nausea and 06/23/24 tablet vomiting 30 days #30 tabs omeprazole 20 mg capsule,delayed 20 mg PO DAILY #90 caps 12/19/24 release cholecalciferol (vitamin D3) 25 25 mcg PO DAILY 90 days #90 caps 01/25/25 mcg (1,000 unit) capsule (Vitamin D3) lidocaine 4 % topical patch 1 patch topical DAILY PRN pain 10 02/12/25 days #10 ea dicyclomine 20 mg tablet 20 mg PO TID PRN abdominal pain 05/26/25 #21 tabs Allergies Allergy/AdvReac Type Severity Reaction Status Date / Time doxycycline Allergy Unknown Itching Verified 05/26/25 15:23 Tylox Allergy Unknown Itching Uncoded 02/11/25 20:19 Review of Systems Review of Systems: Yes all other systems are reviewed and are negative PMFSH Past Medical History Attestation statement: The following information was validated with the patient. Source: old records reviewed, obtained from family and nursing notes reviewed Medical History Multiple sclerosis GERD (gastroesophageal reflux disease) Anxiety Asthma Hypertension Diverticulitis Surgical History History of hand surgery History of carpal tunnel release (01/15/23) Hx of endoscopy History of colonoscopy Family History Family History Father Alive and well Mother Hx of diabetes insipidus Social History Social History Household Members: Family, Children and Other Alcohol intake: never Patient Tobacco Use Status: Never used Tobacco Substance Use Type: Marijuana Current occupational status: employed 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 No septic or ill-appearing. Vitals reviewed normal, PMH/Social and Surgical hx reviewed including allergies and current medications. - reviewed for prior visits here and read. Head: Normocephalic, no obvious trauma or skin lesions noted. Eyes: EOMI, PERRLA ENMT: Dry oral mucosa uvula is midline no trismus tonsils are normal, no tongue bite solano, no incontinence Neck: trachea midline, no lymphadenopathy able to move neck side to side without pain Cardiovascular: peripheral perfusion normal, Regular heart rate regular rhythm Respiratory: no respiratory distress lungs clear no chest wall tenderness Abdomen: Obese abdomen diffusely tender in the lower quadrants mild guarding but negative peritoneal signs no suprapubic or CVA tenderness Extremities: warm and moving without difficulty . Psych: Cooperative Neuro: Alert and oriented. Vital Signs: Vital Signs: Last Vital Signs Temp 98 F 05/26/25 19:31 Pulse 90 05/26/25 19:31 Resp 16 05/26/25 19:31 BP 136/95 H 05/26/25 19:31 Pulse Ox 98 05/26/25 19:31 O2 Del Method Room Air 05/26/25 19:31 BMI result Body Mass Index 31.2 Medications Administered Discontinued Medications Generic Name Dose Route Start Last Admin Trade Name Franq PRN Reason Stop Dose Admin Dicyclomine HCl 10 mg 05/26/25 18:42 05/26/25 19:21 Dicyclomine Hcl 10 Mg Capsule PO 05/26/25 18:43 10 mg ONCE ONE Administration Sodium Chloride 1,000 mls @ 999 mls/hr 05/26/25 16:54 05/26/25 17:59 Ns IV 05/26/25 17:54 Infused .Q1H1M ONE Infusion Levetiracetam 1,000 mg in 100 mls @ 400 mls/hr 05/26/25 16:59 05/26/25 17:58 Keppra IV 05/26/25 17:13 Infused ONCE ONE Infusion Iohexol 100 ml 05/26/25 17:29 05/26/25 17:29 Iohexol 350 Mg/Ml 100 Ml Infus..Btl IV 05/26/25 17:30 85 ml ONCE ONE Administration Morphine Sulfate 2 mg 05/26/25 16:54 05/26/25 17:09 Morphine Sulfate 4 Mg/Ml Cartridge IVPUSH 05/26/25 16:55 2 mg ONCE ONE Administration Protocol Ondansetron HCl 4 mg 05/26/25 16:54 05/26/25 17:10 Ondansetron Hcl 4 Mg/2 Ml Vial IVPUSH 05/26/25 16:55 4 mg ONCE ONE Administration Tramadol HCl 50 mg 05/26/25 18:42 05/26/25 19:20 Tramadol Hcl 50 Mg Tablet PO 05/26/25 18:43 50 mg ONCE ONE Administration Medical Decision Making Medical Decision Making MDM Narrative: 54-year-old female with epilepsy (recent medication adjustment, missed dose, breakthrough seizure), abdominal pain, history of multiple sclerosis, hypertension, GERD, anxiety, bilateral carpal tunnel syndrome (s/p release), recent sinus infection. Breakthrough seizure is likely due to missed Keppra dose, supported by low levetiracetam level on labs. Abdominal pain is not explained by imaging or labs; no acute findings. CT abdomen/pelvis shows moderate colonic stool burden, suggesting constipation as the likely etiology. No evidence of bowel obstruction, appendicitis, or other acute abdominal process. Small right renal cyst noted, not clinically significant. Laboratory results notable for low levetiracetam (Keppra) level, positive urine opiates and THC, mildly elevated BUN and urine specific gravity, otherwise unremarkable CBC/CMP/UA. Chest X-ray shows no consolidation, normal heart and mediastinal contours, no effusion or pneumothorax. Plan: Continue Keppra 500 mg BID as per neurology. Reinforce medication adherence and arrange outpatient follow-up for antiepileptic drug monitoring. Administered loading dose of Keppra 1 g in ED. Continue seizure precautions (no driving until cleared), and neurology follow-up. Monitor for further seizures during admission. Address constipation with bowel regimen as appropriate. No acute findings on imaging; monitor abdominal pain and provide supportive care for GI symptoms and nausea. Medical File Clerk patient regarding urine drug screen findings (positive for opiates and THC) and document discussion. No evidence of acute infection or respiratory process on chest X-ray. Reassess pain and GI symptoms during admission. Dental follow-up as needed. The patient presented after a witnessed seizure, most likely due to a missed dose of Keppra, as supported by a low levetiracetam level. She received a loading dose of Keppra in the ED and is now clinically stable with no further seizures observed. Laboratory evaluation is notable for low Keppra level, positive urine opiates and THC, and mildly elevated BUN, but otherwise unremarkable. Imaging, including chest X-ray and CT abdomen/pelvis, shows no acute cardiopulmonary or abdominal pathology; CT reveals only moderate stool burden. Abdominal pain is likely related to constipation, with no evidence of infection, bowel obstruction, or other acute process. The patient is alert, oriented, and has reliable outpatient follow-up. There is no medical necessity for admission; she is safe for discharge home with instructions to resume Keppra as directed, follow up with neurology, and address constipation as needed. Differential Diagnosis Differential Diagnoses: The differential diagnosis associated with the presentation includes see [facility] Admission/Observation Consideration of admission/observation: Escalation of care including admission/observation considered Patient would have been admitted to the hospital had her work up had any findings where hospital admission was appropriate and her clinical presentation warranted hospital admission. Lab Data [facility] Lab Attestation statement: I reviewed the patient's lab results. Laboratory results notable for low levetiracetam (Keppra) level, positive urine opiates and THC, and mildly elevated BUN and urine specific gravity. All other parameters are within normal limits or not clinically significant. Findings are consistent with missed antiepileptic dose and recent medication history. 05/26/25 15:47 05/26/25 15:47 Labs: Lab Results 05/26/25 05/26/25 05/26/25 Range/Units 15:47 17:07 17:46 WBC 10.4 (4.8-10.8) X10*3/uL RBC 4.24 (4.20-5.50) X10*6/uL Hgb 12.9 (12.0-16.0) g/dl Hct 39.5 (37.0-47.0) % MCV 93.2 (80.0-98.0) fL MCH 30.4 (27.0-33.0) pg MCHC 32.7 (31.0-35.0) g/dl RDW 12.7 (11.0-16.0) % Plt Count 270 (160-400) X10*3/uL MPV 10.3 (9.4-12.3) fL Immature Gran % (Auto) 0.3 (0.0-0.4) % Neut % (Auto) 54.0 (45-73) % Lymph % (Auto) 32.0 (20-40) % [place] % (Auto) 10.8 (2-11) % Eos % (Auto) 2.2 (0-4) % Baso % (Auto) 0.7 (0-2) % Lymph # (Auto) 3.3 (1.2-4.9) X10*3/uL [place] # (Auto) 1.1 (0.1-1.2) X10*3/uL Eos # (Auto) 0.2 (0.0-0.4) X10*3/uL Baso # (Auto) 0.1 (0.0-0.2) X10*3/uL Abs Immat Gran (auto) 0.03 (0.00-0.03) X10*3/uL Absolute Neuts (auto) 5.6 (2.0-8.3) x10*3/uL Absolute Nucleated RBC 0.000 (0.0-0.012) X10*3/uL Nucleated RBC % (auto) 0.0 (0.0-0.2) /100WBC Sodium 139 (135-145) mmol/L Potassium 4.0 (3.3-5.1) mmol/L Chloride 106 (96-108) mmol/L Carbon Dioxide 24 (22-29) mmol/L Anion Gap 13 (12-20) BUN 17 H (9-16) mg/dL Creatinine 0.66 (0.5-1.4) mg/dL Estim Creat Clear Calc 82.9 Estimated GFR > 60 Random Glucose 104 (60-115) mg/dL Lactic Acid 1.6 (0.5-2.0) mmol/L Calcium 9.6 (8.4-10.2) mg/dL Magnesium 2.0 (1.6-2.6) mg/dL Total Bilirubin 0.3 (0.0-1.0) mg/dL AST 25 (5-31) U/L ALT 15 (0-31) U/L Alkaline Phosphatase 84 (39-117) U/L Total Protein 7.6 (6.5-8.0) g/dL Albumin 4.5 (3.5-5.0) g/dL Urine Color Yellow Urine Appearance Clear Urine pH 6.5 (5.0-9.0) Ur Specific [place] >= 1.030 H (1.005-1.025) Urine Protein Negative (Neg-Trace) mg/dL Urine Glucose (UA) Negative (Negative) mg/dL Urine Ketones Trace (Negative) mg/dL Urine Blood Negative (Negative) Urine Nitrite Negative (Negative) Ur Leukocyte Esterase Negative (Negative) Urine Test NEGATIVE (NEGATIVE) Urine Opiates Screen POSITIVE H (Not Detect) Ur Buprenorphine Scrn Not Detected (Not Detect) ng/mL Ur Oxycodone Screen Not Detected (Not Detect) ng/mL Urine Methadone Screen Not Detected (Not Detect) ng/mL Urine Fentanyl Screen Not Detected (Not Detect) Ur Barbiturates Screen Not Detected (Not Detect) Levetiracetam <2.0 L (10.0-40.0) mcg/mL Ur Phencyclidine Scrn Not Detected (Not Detect) Ur Amphetamines Screen Not Detected (Not Detect) U Benzodiazepines Scrn Not Detected (Not Detect) Urine Cocaine Screen Not Detected (Not Detect) U Marijuana (THC) Screen POSITIVE H (Not Detect) Independent Interpretation I performed an independent interpretation of an: Plain X-Ray and CT Scan Interpretation: no acute findings Radiology Impression Discussion of test interpretation with radiology: I have reviewed the radiologist's reading. External Record Review External record reviewed: Office record Prescription Management I considered prescription management with: Pain Medication and Other Chronic Conditions Patient?s care impacted by: Other Social Determinants Patient?s care significantly limited by Social Determinants of Health including: Problems related to primary support group and Other Social Determinant of Health Critical Care Time Critical Care Time Critical Care Time: Yes Total Critical Care Time: 45 Attestation: This patient required critical care. Due to the fact that the patient required a significant amount of one on one physician ? patient contact time, ordering and review of studies, arranging urgent treatment with development of a management plan, evaluation of patient?s response to treatment with frequent reassessments, and discussions with other providers this patient required critical care time in excess of 30 minutes. Critical care time was indicated due to the inherent instability and/or potential for instability in this patient. The critical care time that is allocated to this patient is above and beyond any time spent on any other billable procedures performed on this patient. Discharge Plan Discharge Clinical Impression: Seizure, Abdominal pain, Chronic cough Patient Disposition: Home, Self-Care Instructions: Abdominal Pain (ED) Additional Instructions: You were seen in the emergency department today following an episode of a breakthrough seizure secondary to missing her medication. You were given a loading dose of Keppra while here. Please try to remember to take this as unfortunately lying sometimes seizures can lead to injury and all injuries or able to be fully recovered from. Given her other symptoms today of her chronic cough you had a chest x-ray that does not show any evidence of pneumonia your lungs are clear to auscultation bilaterally it is not felt that you have pneumonia or bronchitis. You have an endoscopy pending with Gastroenterology/swallowing study. Please keep this appointment. Also given your abdominal pain your lower quadrant you had an abdominal and pelvis CT along with a urinalysis that does not show any acute intra abdominal infection. Does show moderate stool burden. Your last bowel movement was yesterday is not feel that you are impacted. As you already taken tramadol dicyclomine at home this medications were given to here as well with a additional prescription for dicyclomine just in case he did not have anymore of this. Try warm bath as well as a warm heating compresses to your abdomen. Return to the emergency department for any intractable abdominal pain or worsening abdominal pain hope you continue to feel well again as a reminder just like what your neurologist Head please do not operate any heavy machinery or drive until cleared by your neurologist. In [place], the requirement for individuals with epilepsy to be seizure-free for six months before driving a vehicle applies to operating motor vehicles on public roads. However, the regulations may differ when it comes to operating vehicles or heavy equipment on private property, such as forklifts. Forklift operation typically falls under workplace safety regulations governed by occupational health and safety agencies rather than motor vehicle laws. Employers are responsible for establishing safety policies and procedures for the operation of forklifts, which may include guidelines for employees with medical conditions such as epilepsy. While [place] may not have specific regulations regarding individuals with epilepsy operating forklifts, employers are generally required to ensure a safe working environment for all employees. This may involve assessing an employee's ability to safely operate a forklift, considering factors such as their medical condition, history of seizures, and compliance with medical treatment. It's important for individuals with epilepsy who operate forklifts or other heavy equipment to discuss their condition with their employer and healthcare provider. They should follow any workplace policies regarding medical conditions and vehicle operation, and ensure they are fit to perform their duties safely. Prescriptions: New dicyclomine 20 mg tablet 20 mg PO TID PRN (Reason: abdominal pain) Qty: 21 0RF No Action dicyclomine 20 mg tablet 20 mg PO TID PRN (Reason: for abdominal pain) Qty: 20 3RF omeprazole 20 mg capsule,delayed release(DR/EC) 20 mg PO DAILY Qty: 90 1RF cholecalciferol (vitamin D3) [Vitamin D3] 25 mcg (1,000 unit) capsule 25 mcg PO DAILY 90 Days Qty: 90 1RF acetaminophen 500 mg capsule 500 mg PO QID PRN (Reason: fever or pain) Qty: 14 0RF lidocaine 4 % adhesive patch,medicated 1 patch topical DAILY PRN (Reason: pain) 10 Days Qty: 10 0RF albuterol sulfate 90 mcg/actuation HFA aerosol inhaler 2 puff inhalation QID PRN (Reason: shortness of breath or wheezing) Qty: 8.5 0RF albuterol sulfate 2.5 mg /3 mL (0.083 %) solution for nebulization 1 mg inhalation Q6H PRN (Reason: Shortness Of Breath) lisinopril 40 mg tablet 40 mg PO DAILY duloxetine 60 mg capsule,delayed release(DR/EC) 60 mg PO DAILY sennosides-docusate sodium [Senna with Docusate Sodium] 8.6-50 mg tablet 2 tab-cap PO BEDTIME 60 Days Qty: 120 2RF Rx Instructions: Please 1-2 tab/caps every day at bedtime tramadol 50 mg tablet 50 mg PO DAILY PRN (Reason: pain) ondansetron 4 mg tablet,disintegrating 4 mg PO Q8H PRN (Reason: nausea and vomiting) 30 Days Qty: 30 3RF Referrals: Yin Flores PA-C [Primary Care Provider, Family Practice] Clinical Impression: Chronic cough; Seizure; Abdominal pain Stand Alone Forms: Work/School Release Interventions: ED Discharge Assessment Last Done: 05/26/25 19:31 Discharge Date/Time: 05/26/25 19:34 Print Language: Russian
[2025-05-26 16:28] LABS: Alanine Aminotransferase 15 U/L (0-31); Albumin Level 4.5 g/dL (3.5-5.0); Alkaline Phosphatase 84 U/L (39-117); Anion Gap 13 (12-20); Aspartate Amino Transferase 25 U/L (5-31); Blood Urea Nitrogen 17 mg/dL (9-16); Calcium 9.6 mg/dL (8.4-10.2); Carbon Dioxide 24 mmol/L (22-29); Chloride 106 mmol/L (96-108); Creatinine Clr Calc Pharmacy 82.9; Estimated Glomerular Filt Rate > 60; Magnesium 2.0 mg/dL (1.6-2.6); Potassium 4.0 mmol/L (3.3-5.1); Sodium 139 mmol/L (135-145); Total Protein 7.6 g/dL (6.5-8.0)
--- NOTE | 2025-05-26 16:55 | ECG_ITS ---
Test Reason : seizure Blood Pressure : */* mmHG Vent. Rate : 73 BPM Atrial Rate : 73 BPM P-R Int : 140 ms QRS Dur : 76 ms QT Int : 394 ms P-R-T Axes : 51 31 40 degrees QTcB Int : 434 ms Normal sinus rhythm Normal ECG When compared with ECG of 11-Feb-2025 20:15, No significant change was found Referred By: Erica Warren Electronically Signed By: DEBBIE CRAWFORD
[2025-05-26] MEDS: iohexoL 350 MG/ML 100 ML INFUS..BTL IV (17:29)
[2025-05-26] MEDS: levETIRAcetam in NaCl (iso-os) 1,000 MG/100 ML PIGGYBACK 400 MG IV (17:38)
[2025-05-26 18:10] LABS: Appearance Urine Clear; Glucose Urine UA Negative (Negative); PH 6.5 (5.0-9.0); Specific Gravity - Urine >= 1.030 (1.005-1.025)
[2025-05-26 18:11] LABS: UPreg QC Valid YES
[2025-05-26 18:20] LABS: Cannabinoid Screen Urine POSITIVE (Not Detect)
[2025-05-26 19:22] VITALS: BP 136/95; PULSE 90; RESP 16; TEMP 36.6; O2SAT 98
[2025-05-26 19:31] VITALS: BP 136/95; PULSE 90; RESP 16; TEMP 36.6; O2SAT 98
--- OUTSIDE RECORDS SUMMARY | 2025-05-26 19:36 | XMS_ITS | Encounter Summary ---
Author Organization [facility] Address [address] [place] [address] Phone Care Team Providers Care Link Knitting Machine Operator Name Role Phone Baljit Hernandez RETAIL REPRESENTATIVE Unavailable [phone] Yin Flores Primary Care Provider [phone] Isabella Reyes Unavailable [email or web address] Maribel Martinez Unavailable juan miguel stillorosenjuan Aida Montgomery MD Unavailable [phone] Power Cle[employer] Unavailable Reason for Referral * MRI/CAT Scan - Closed Specialty Diagnoses / Procedures Referred By Contac t Referred To Contact Radiology Diagnoses Numbness Procedures MRI Brain Tim Hoover MD [address] [place] [address], [address] [place] [address] Phone: tel: fax: mailto: Referral ID Status Reason Start Date Expiration Date Visits Re quested Visits Authorized [id number] Closed 11/25/2023 11/24/2024 1 1 Encounter Details Date Type Department Care Team (Latest Contact Info) Description 11/25/2023 Transcribe Orders [facility] Department [address] [place] [address] Tim Hoover MD [address] [place] [address], [address] [place] [address] [email or web address] Numbness (Primary Dx) Social History Tobacco Use [...] as of this encounter Plan of Treatment Upcoming Encounters Date Type Department Care Team (Late st Contact Info) Description 06/01/2025 8:30 AM EST Appointment [facility], Nuclear Medicine - [facility] [address] [place] [address] Jody Stokes MD [address] [place] [address] Dr Cifuentes [address] [place] [address] documented as of this encounter Results * MRI BRAIN (MS) WITHOUT CONTRAST (03/25/2024 11:49 AM EDT) Anatomical Region Laterality Modality Head Magnetic Resonan ce 03/28/2024 9:38 AM EDT Impressions 03/28/2024 9:49 AM EDT 1. Normal MRI of the brain. Narrative 03/28/2024 9:49 AM EDT MRI BRAIN (MS) WITHOUT CONTRAST Referring clinician's provided indication for this examination in [facility]: Outside Radiology Order; NUMBNESS TECHNIQUE: MRI BRAIN [...] clinician's provided indication for this examination in [facility]:Outside Radiology Order; NUMBNESS TECHNIQUE: MRI BRAIN (MS) [...] IMPRESSION: 1. Normal MRI of the brain. Tim Hoover MD IM MR HEAD/NECK Final Resul t documented in [...] documented as of this encounter Care Teams Link Knitting Machine Operator Relationship Specialty Start Date End Date Yin Flores PA [address] [place] [address] PCP - General Outside Machinist Apprentice 08/01/21 Baljit Hernandez LICSW [address] [place] [address] PHCM Medical Engineer 06/26/21 Isabella Reyes [address] [place] [address] Community Health Worker 02/02/23 09/22/24 Maribel Martinez [address] [place] [address] [email or web address] PHC Community Cash Register Repairer 03/16/24 03/16/24 Aida Montgomery MD [address] [place] [address] [email or web address] Insurance Assigned Provider 05/06/25 [employer] [address] [place] [address] Medical Engineer 04/26/25 04/26/25 documented as of this encounter Additional Source Comments The information contained in this document represents components of the legal health record. It is not the complete legal health record.[facility]
--- OUTSIDE RECORDS SUMMARY | 2025-05-26 19:36 | XMS_ITS | Encounter Summary ---
Author Organization [facility] Address [address] [place] [address] Phone Care Team Providers Care News Assistant Name Role Phone Baljit Hernandez GRAVITY PROSPECTOR Unavailable [phone] Yin Flores Primary Care Provider [phone] Isabella Reyes Unavailable Maribel Martinez Unavailable juan miguel stillorosenjuan Aida Montgomery MD Unavailable [phone] Power [employer] Unavailable Encounter Details Date Type Department Care Team (Late st Contact Info) Description 11/25/2023 Procedure Pass [facility], [address] [address] Social History Tobacco Use Types Packs/Day Years [...] Info) Description 06/01/2025 8:30 AM EST Appointment [facility], Nuclear Medicine - [facility] [address] [place] [address] Jody Stokes MD [address] [place] [address] [place] [address] documented as of this encounter Visit Diagnoses [...] documented as of this encounter Care Teams News Assistant Relationship Specialty Start Date End Date Yin Flores PA [address] [place] [address] PCP - General Audit Tech 08/01/21 Baljit Hernandez LICSW [address] [place] [address] PHCM Thermoforming Machine Operator 06/26/21 Isabella Reyes [address] [place] [email or web address] Community Health Worker 02/02/23 09/22/24 Maribel Martinez [address] [place] [address] [email or web address] PHCM Community Educational Therapy Teacher 03/16/24 03/16/24 Aida Montgomery MD [address] [place] [address] [email or web address] Insurance Assigned Provider 05/06/25 [employer] [address] [place] [address] [email or web address] Thermoforming Machine Operator 04/26/25 04/26/25 documented as of this encounter Additional Source Comments The information contained in this document represents components of the legal health record. It is not the complete legal health record.[facility]
--- OUTSIDE RECORDS SUMMARY | 2025-05-26 19:36 | XMS_ITS | Encounter Summary ---
Author Organization [facility] Address [address] [place] [address] [place] [address] Phone Care Team Providers Care Broom Maker Name Role Phone Samy Alva MD Unavailable + Baljit Hernandez Unavailable [phone] Yin Flores Primary Care Provider [phone] Chata Abebe MD Unavailable [phone] Nick Canales MD Unavailable [phone] Nelly Paz Unavailable [email or web address] Yuli AlvarezW Unavailable [email or web address] Sarah Andersen RN Unavailable Isabella Reyes Unavailable Nelly Paz Unavailable [email or web address] Maribel Martinez Unavailable juan miguel Aida Montgomery MD Unavailable [phone] Power [employer] Unavailable Encounter Details Date Type Department Care Team (Late st Contact Info) Description 08/17/2021 Procedure Pass [facility], Ct Scan - [address] [address] Social History Tobacco Use Types Packs/Day Years [...] 08/17/2021 11:16 AM Lakeisha Bautista RN * [place] Suicide Severity Rating Scale (Screener/Recent Self-Report) Question Answer Date of Assessment Author 1. Wish to be (Past 1 Month) No 08/17/2021 11:16 AM Lakeisha Becerril RN 2. Non-Specific Active Suici ousmane Thoughts (Past 1 Month) No 08/17/2021 11:16 AM EST Edwige Franklin cia, RN 6. Suicidal Behavior (Lifetime) No 11:16 AM Lakeisha Becerril RN documented as of this encounter Plan of Treatment Upcoming Encounters Date Type Department Care Team (Late st Contact Info) Description 06/01/2025 8:30 AM EST Appointment [facility], Nuclear Medicine - [address] [address] Jody Stokes MD [address] [place] [address] [place] [address] documented as of this encounter Visit Diagnoses [...] documented as of this encounter Care Teams Broom Maker Relationship Specialty Start Date End Date Yin Flores PA [address] [place] [address] PCP - General Grants Assistant 08/01/21 Samy Alva MD [address] [place] [address] [email or web address] Insurance Assigned Provider 08/25/20 08/25/21 Baljit Hernandez LICSW [address] [place] [address] PHCM Ticket Attendant 06/26/21 Chata Abebe MD [address] [place] [phone] Insurance Assigned Provider 08/25/21 11/30/21 Nick Canales MD [address] [place] [phone] Insurance Assigned Provider 11/30/21 02/28/23 Nelly Paz [address] [place] [address] [email or web address] PHC Community Yarn Man 11/26/22 11/27/22 Yuli Alvarez, [address] [address] [email or web address] Ticket Attendant 12/09/22 03/04/23 Sarah Andersen, RN [address] [place] [address] [email or web address] PHCM Mold Mover 12/26/22 01/04/23 Isabella Reyes 10 [place] [address] [email or web address] Community Health Worker 02/02/23 09/22/24 Nelly Paz [address] [place] [address] [email or web address] PHC Community Yarn Man 02/10/23 02/12/23 Maribel Martinez [address] [place] [address] [email or web address] PHC Community Yarn Man 03/16/24 03/16/24 Aida Montgomery MD [address] [place] [address] [email or web address] Insurance Assigned Provider 05/06/25 [employer] [address] [place] [address] Ticket Attendant 04/26/25 04/26/25 documented as of this encounter Additional Source Comments The information contained in this document represents components of the legal health record. It is not the complete legal health record.[facility]
--- OUTSIDE RECORDS SUMMARY | 2025-05-26 19:36 | XMS_ITS | Encounter Summary ---
Author Organization [facility] Address [address] [place] [address] Phone Care Team Providers Care Picking Machine Operator Name Role Phone Baljit Hernandez Unavailable [phone] Yin Flores Primary Care Provider [phone] Aida Montgomery MD Unavailable [phone] [employer] Unavailable Encounter Details Date Type Department Care Team (Late st Contact Info) Description 12/13/2024 Prep for Surgery [facility] Orthopedics & Sports Medicine [address] [place] [address] [phone] Hilda Castro MD [address] [place] [address] Orthopedics & Sports Medicine, [facility] [place], [place] [phone] [email or web address] Social History Tobacco Use Types Packs/Day Years [...] Info) Description 06/01/2025 8:30 AM EST Appointment [facility], Nuclear Medicine - [address] [address] Jody Stokes MD [address] [place] [address] Dr Cifuentes [address] [place] [address] documented as of this encounter Visit Diagnoses Not on filedocumented in this encounter Additional Health Concerns Assessment Noted Time PHQ-2 Depression Total Score: 2 07/02/19 22 12:51 PM EST documented as of this encounter Care Teams Picking Machine Operator Relationship Specialty Start Date End Date Yin Flores PA [address] [place] [address] PCP - General Electrician'S Helper 08/01/21 Baljit Hernandez [address] [address] PHCM Blanker Press Operator 06/26/21 Aida Montgomery MD [address] [place] [address] [email or web address] Insurance Assigned Provider 05/06/25 [employer] [address] [place] [address] [email or web address] Blanker Press Operator 04/26/25 04/26/25 documented as of this encounter Additional Source Comments The information contained in this document represents components of the legal health record. It is not the complete legal health record.[facility]
--- OUTSIDE RECORDS SUMMARY | 2025-05-26 19:36 | XMS_ITS | Encounter Summary ---
Author Organization [facility] Address [address] [place] [address] Phone Care Team Providers Care Fur Glazer Name Role Phone Baljit HernandezSW Unavailable [phone] Yin Flores Primary Care Provider [phone] Aida Montgomery MD Unavailable [phone] Power Cle[employer] Unavailable Encounter Details Date Type Department Care Team (Late st Contact Info) Description 12/16/2024 Procedure Pass [place] Admitting Dept - Virtual Department 30 [place] [address] Social History Tobacco Use Types Packs/Day Years [...] Info) Description 06/01/2025 8:30 AM EST Appointment [facility], Nuclear Medicine - [address] [address] Jody Stokes MD [address] [place] [address] Dr Cifuentes [address] [place] [address] documented as of this encounter Visit Diagnoses Not on filedocumented in this encounter Additional Health Concerns Assessment Noted Time PHQ-2 Depression Total Score: 2 07/02/19 22 12:51 PM EST documented as of this encounter Care Teams Fur Glazer Relationship Specialty Start Date End Date Yin Flores PA [address] [place] [address] PCP - General Grape Pruner 08/01/21 Baljit Hernandez LICSW [address] [place] [address] PHCM Internal Controls Specialist 06/26/21 Aida Montgomery MD [address] [place] [address] [email or web address] Insurance Assigned Provider 05/06/25 [employer] [address] [place] [address] [email or web address] Internal Controls Specialist 04/26/25 04/26/25 documented as of this encounter Additional Source Comments The information contained in this document represents components of the legal health record. It is not the complete legal health record.[facility]
--- OUTSIDE RECORDS SUMMARY | 2025-05-26 19:36 | XMS_ITS | Encounter Summary ---
Author Organization [facility] Address [address] [place] [address] Phone Care Team Providers Care Rn Triage Name Role Phone Baljit Hernandez ASSEMBLER TESTER Unavailable [phone] Yin Flores Primary Care Provider [phone] Isabella Reyes Unavailable Maribel Martinez Unavailable juan miguel stillorosenjuan Aida Montgomery MD Unavailable [phone] Power Cle[employer] Unavailable Reason for Referral * MRI/CAT Scan - Closed Specialty Diagnoses / Procedures Referred By Contac t Referred To Contact Radiology Diagnoses Weakness Numbness Procedures MRI Lumbar Spine Tim Hoover MD [address] [place] [address], [address] [place] [address] Phone: tel: fax: mailto: Referral ID Status Reason Start Date Expiration Date Visits Re quested Visits Authorized [id number] Closed 10/23/2023 10/22/2024 1 1 Encounter Details Date Type Department Care Team (Latest Contact Info) Description 10/23/2023 Transcribe Orders Virtual Department 30 [place] [address] Tim Hoover MD [address] [place] [address], [address] [place] [address] [email or web address] Weakness (Primary Dx); Numbness Social History Tobacco [...] Info) Description 06/01/2025 8:30 AM EST Appointment [facility], Nuclear Medicine - [address] [address] Jody Stokes MD [address] [place] [address] [place] [address] documented as of this encounter Results * [...] documented as of this encounter Care Teams Rn Triage Relationship Specialty Start Date End Date Yin Flores PA [address] [place] [address] PCP - General Spring Layer 08/01/21 Baljit Hernandez, ALYCE [address] [place] [address] PHCM Turret Punch Press Operator 06/26/21 Isabella Reyes 10 [place] [address] Community Health Worker 02/02/23 09/22/24 Maribel Martinez 10 [place] [address] [email or web address] PHC Community Electromechanical Technician 03/16/24 03/16/24 Aida Montgomery MD [address] [place] [address] [email or web address] Insurance Assigned Provider 05/06/25 [employer] [address] [place] [address] Turret Punch Press Operator 04/26/25 04/26/25 documented as of this encounter Additional Source Comments The information contained in this document represents components of the legal health record. It is not the complete legal health record.[facility]
--- OUTSIDE RECORDS SUMMARY | 2025-05-26 19:36 | XMS_ITS | Encounter Summary ---
Author Organization [facility] Address [address] [place] [address] Phone Care Team Providers Care Plant Operator/Shift Supervisor Name Role Phone Baljit Hernandez FILM CLEANER Unavailable [phone] Yin Flores Primary Care Provider [phone] Aida Montgomery MD Unavailable [phone] Reason for Visit * Reason Onset Date Comments [facility] 05/22/2025 CARE Lito ss Care Plan Update attempt Encounter Details Date Type Department Care Team (Late st Contact Info) Description 05/22/2025 Patient Outreach [facility] Physicians - Primary Care [address] [place] [address] Baljit Hernandez LICSW [address] [place] [address] [phone] [email or web address] iCM Care Plan Update (CARE Compass Care Plan Update attempt) Social History Tobacco Use Types Packs/Day Years [...] AM EDT documented as of this encounter Miscellaneous Notes * Plan of Care - Baljit Hernandez LICSW - 05/22/2025 4:24 PM EST CARE Compass Social Work Progress Note Note Subject: [facility] Progress Note 05/22/2025 PLAN/INTERVENTIONS: SW has not heard back from attempts to reach patient since January. SW sent message to patient via the [facility] patient portal, noting he would need to transition patient out of CARE Compass program if he does not hear back by end of the month. FOLLOW-UP OUTREACH: SW will transition patient out of CARE Compass program if no response in one month's time. ALYCE Weiss CARE Compass, Social Work, Senior Net Software Developer documented in this encounter Plan of Treatment Upcoming Encounters Date Type Department Care Team (Late st Contact Info) Description 06/01/2025 8:30 AM EST Appointment [facility], Nuclear Medicine - [address] [phone] Jody Stokes MD [address] [place] [address] Dr Cifuentes [address] [place] [address] documented as of this encounter Visit Diagnoses Not on filedocumented in this encounter Additional Health Concerns Assessment Noted Time PHQ-2 Depression Total Score: 2 07/02/19 22 12:51 PM EST documented as of this encounter Care Teams Plant Operator/Shift Supervisor Relationship Specialty Start Date End Date Yin Flores PA [address] [place] [address] PCP - General Pta 08/01/21 Baljit Hernandez [address] [address] PHCM Director Instrumentation 06/26/21 Aida Montgomery MD [address] [place] [address] [email or web address] Insurance Assigned Provider 05/06/25 documented as of this encounter Additional Source Comments The information contained in this document represents components of the legal health record. It is not the complete legal health record.[facility]
--- OUTSIDE RECORDS SUMMARY | 2025-05-26 19:36 | XMS_ITS | Encounter Summary ---
Author Organization [facility] Address [address] [place] [address] Phone Care Team Providers Care Telegraph Lineman Name Role Phone Samy Alva MD Primary Care Prov ider Samy Alva MD Unavailable + Sarah Andersen RN Unavailable Baljit HernandezSW Unavailable [phone] Yin Flores Primary Care Provider Chata Abebe MD Unavailable Nick Canales MD Unavailable [phone] Nelly Paz Unavailable [email or web address] Yuli AlvarezW Unavailable [email or web address] Sarah Andersen RN Unavailable Isabella Reyes Unavailable Nelly Paz Unavailable [email or web address] Maribel Martinez Unavailable juan miguel stillorosenjuan Aida Montgomery MD Unavailable [phone] Power Clements Unavailable Encounter Details Date Type Department Care Team (Late Contact Info) Description 10/27/2020 Transcribe Orders [facility] Department [address] [place] [address] Tricia Chawla NP [address] [place] [address] Fever, unspecified fever cause (Primary Dx); Cough; [...] Upcoming Encounters Date Type Department Care Team ([facility] Contact Info) Description 06/01/2025 8:30 AM EST Appointment [facility], Nuclear Medicine - [facility] [address] [place] [address] Jody Stokes MD [address] [place] [address] [place] [address] documented as of this encounter Visit Diagnoses [...] documented as of this encounter Care Teams Telegraph Lineman Relationship Specialty Start Date End Date Samy Alva MD [address] [place] [phone] [email or web address] PCP - General Family Medicine 11/18/17 07/31/21 Yin Flores PA [address] [place] [address] PCP - General Senior Programmer 08/01/21 Samy Alva MD [address] [place] [address] [email or web address] Insurance Assigned Provider 08/25/20 08/25/21 Sarah Andersen RN [address] [place] [address] PHCM Wet Roaster 05/24/21 06/25/21 Baljit Hernandez LICSW [address] [place] [address] PHCM Astrophysics Teacher 06/26/21 Chata Abebe MD [address] [place] [address] Insurance Assigned Provider 08/25/21 11/30/21 Nick Canales MD [address] [place] [address] Insurance Assigned Provider 11/30/21 02/28/23 [address] [email or web address] PHC Community Business Strategist 11/26/22 11/27/22 Yuli Alvarez LCSW [address] [place] [address] [email or web address] Astrophysics Teacher 12/09/22 03/04/23 Sarah Andersen RN [address] [place] [address] PHC Wet Roaster 12/26/22 01/04/23 Isabella Reyes [address] [place] [address] [email or web address] Community Health Worker 02/02/23 09/22/[address] [email or web address] [facility] Community Business Strategist 02/10/23 02/12/23 Maribel Martinez [address] [place] [address] [email or web address] [facility] Community Business Strategist 03/16/24 03/16/24 Aida Montgomery MD [address] [place] [address] [email or web address] Insurance Assigned Provider 05/06/25 [employer] [address] [place] [address] Astrophysics Teacher 04/26/25 04/26/25 documented as of this encounter Additional Source Comments The information contained in this document represents components of the legal health record. It is not the complete legal health record.[facility]
--- OUTSIDE RECORDS SUMMARY | 2025-05-26 19:36 | XMS_ITS ---
Author Organization [facility] Address [address] [place] [address] Phone Care Team Providers Care Director Transportation Name Role Phone Baljit Hernandez Unavailable [phone] Yin Flores Primary Care Provider [phone] Aida Montgomery MD Unavailable [phone] Population Health Care Management (PHCM) Status:Enrolled (Active) Start date:07/07/2023 Enrollment date:07/07/2023 Current support & services provided:CARE COMPASS Related social drivers of health:Housing Stability, Child or Family Care, Education, Food, Unemployment, Paying for Meds, Paying Utility Bills, Transportation, Digital Access, SNAP/WIC Case Team Name Relationship Phone Email Baljit MEAD(Responsibl e Staff) [facility] Inside Sales Executive [phone] Didi Gamble PHC Cargo Services Coordinator [email or web address] Continued Care and Services Coordination
--- OUTSIDE RECORDS SUMMARY | 2025-05-26 19:36 | XMS_ITS | Encounter Summary ---
Author Organization [facility] Address [address] [place] [address] Phone Care Team Providers Care Bronc Buster Name Role Phone Baljit Hernandez Unavailable [phone] Yin Flores Primary Care Provider [phone] Aida Montgomery MD Unavailable [phone] Power Cle[employer] Unavailable Reason for Referral * Outpatient Procedure - Authorized Specialty Diagnoses / Procedures Referred By Niyah t Referred To Contact Radiology Diagnoses Early satiety Procedures NM Gastric Emptying Jody Stokes MD [address] [place] [address] Dr Cifuentes 3 [place] [id number] Phone: tel: fax: Referral ID Status Reason Start Date Expiration Date V isits Requested Visits Authorized [id number] Authorized 04/24/2025 04/24/2026 1 1 Encounter Details Date Type Department Care Team (Late st Contact Info) Description 04/24/2025 Transcribe Orders Virtual Department [address] [place] [address] Jody Stokes MD [address] [place] [address] Dr Cifuentes 3 [place] [id number] Early satiety (Primary Dx) Social History Tobacco Use Types [...] Info) Description 06/01/2025 8:30 AM EST Appointment [facility], Nuclear Medicine - [address] [address] Jody Stokes MD [address] [place] [address] Dr Cifuentes [address] [place] [address] Scheduled Orders Name Type Priority Associated Diagnoses Orde r Schedule NM Gastric Emptying Imaging Routine Early satiety Expected: 04/24/2025, Expires: 04/24/2026 documented as of this encounter Visit Diagnoses Diagnosis Early satiety- Primary documented in this encounter Additional Health Concerns Assessment Noted Time PHQ-2 Depression Total Score: 2 07/02/19 22 12:51 PM EST documented as of this encounter Care Teams Bronc Buster Relationship Specialty Start Date End Date Yin Flores PA [address] [place] [address] PCP - General Sugar Cane Planter Machine Operator 08/01/21 Baljit Hernandez LICSW [address] [place] [address] [email or web address] PHCM Consumer Science Teacher 06/26/21 Aida Montgomery MD [address] [place] [address] [email or web address] Insurance Assigned Provider 05/06/25 [employer] [address] [place] [address] [email or web address] Consumer Science Teacher 04/26/25 04/26/25 documented as of this encounter Additional Source Comments The information contained in this document represents components of the legal health record. It is not the complete legal health record.[facility]
--- OUTSIDE RECORDS SUMMARY | 2025-05-26 19:36 | XMS_ITS | Clinical Summary ---
Author Organization [facility] Address [address] [place] [address] Phone Care Team Providers Care Central Station Operator Name Role Phone Baljit Hernandez PROPERTY APPRAISER Unavailable [phone] Yin Flores Primary Care Provider [phone] Aida Montgomery MD Unavailable [phone] Allergies No known active allergies Medications [...] and psychosocial concerns. Living Situation: Lives in [address] in [place]. Adult son will be moving in with [...] manages medications independently. 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 Has pending SSI application and receiving EAEDC/SNAP benefits. Other Supports and Care Needs: Housing/financial assistance. Problem Noted Date Diagnosed Date Trigger finger, right index finger 12/16/2024 Hypertension 12/14/2024 Asthma 12/14/2024 Chronic pain 12/14/2024 Epilepsy 12/14/2024 Encounters Date Type Department Care Team Description 05/22/2025 Patient Outreach [facility] Primary Care [address] [place] [address] Baljit Hernandez LICSW iCMP Care Plan Update (CARE Compass Care Plan Update attempt) 04/28/2025 Patient Outreach [address] [address] Baljit Hernandez LICSW iCMP Care Plan Update (CARE Compass Care Plan Update attempt) 04/24/2025 Transcribe Orders Virtual Department [address] [place] [address] Jody Stokes MD Early satiety (Primary Dx) 03/30/2025 Patient Outreach [facility] Primary Care [address] [place] [address] Baljit Hernandez LICSW iCMP Care Plan Update (CARE Compass Care Plan Update attempt) 03/20/2025 [facility] R[facility]K SCORES SYSTEM GENERATED External System Generated Encounter [address] [place] [address] Unknown, Unknown, 03/20/[address] [address] 03/02/2025 Patient Outreach [facility]TE[facility]ATED [facility] MANAGEMENT [address] [place] [address] Baljit Hernandez LICSW iCMP Care Plan Update (iCMP Care Plan Update) from Last 3 Months Family History Medical [...] 12/15/2024 12:21 PM EDT Plan of Treatment Upcoming Encounters Date Type Department Care Team (Late st Contact Info) Description 06/01/2025 8:30 AM EST Appointment [facility], Nuclear Medicine - [address] [address] Jody Stokes MD [address] [place] [address] Dr Cifuentes [address] [place] [address] Health Maintenance Due Date Last Done Comments SMOKING Hx and SMOKELESS TOBACCO SCREENING 1983 HIV ONE-TIME SCREENING (18-65 YEARS) 1988 PNEUMOCOCCAL VACCINES (50+ years) (2 of 2 - PCV) 10/30/2013 10/30/2012, 12/12/2010 COLOGUARD 2015 COLONOSCOPY 2015 COLORECTAL CANCER SCREENING 2015 FIT TEST 2015 FOBT 2015 SIGMOIDOSCOPY 2015 VIRTUAL COLONOSCOPY 2015 RSV VACCINE (1 - Risk 50-74 years 1-dose series) 2020 ZOSTER VACCINES (1 of 2) 2020 DEPRESSION SCREENING 07/02/2022 07/02/2021 INFLUENZA VACCINE (#1) 2025 03/17/2018 COVID-19 VACCINE ( - season) 2025 12/07/2020, 11/09/2020 BLOOD PRESSURE 06/07/2025 12/06/2024 MAMMOGRAM 08/17/2025 08/17/2023, 08/17/2023 CREATININE LEVEL 08/30/2025 08/30/2024, , 08/17/2021, Additional history exists POTASSIUM LEVEL 08/30/2025 08/30/2024, 06/22, 08/17/2021, Additional history exists PAP SMEAR 09/04/2025 09/04/2022, 06/11/2020 SCREENING FOR DIABETES 08/31/2027 08/30/2024 LIPID PANEL 12/21/2029 12/21/2024, 06/17/2022 Adult Td,Tdap Booster 06/11/2031 06/11/2021, 011 HEPATITIS [...] Procedure Name Priority Date/Time Associated Diagnosis Comments BASIC METABOLIC PANEL (BMP) STAT 08/30/2024 1:23 PM EDT PAP TEST Routine 09/04/2022 12:00 AM EDT from Last 3 Months or Most Recently Relevant to Health Maintenance Results * Basic metabolic panel (08/30/2024 1:23 PM EDT) SODIUM 144 133 - 146 mmol/L [facility] CHLORIDE 107 96 - 108 mmol/L [facility] POTASSIUM 3.5 3.3 - 5.1 mmol/L [facility] CO2 28 21 - 35 mmol/L [facility] BUN 16 6 - 19 mg/dL [facility] CREATININE 0.60 0.5 - 1.5 mg/dL [facility] GLUCOSE 89 70 - 99 mg/dL [facility] CALCIUM 8.8 8.4 - 10.3 mg/dL [facility] EGFR 107 >59 mL/min/1.7 3m2 [facility] Comment:Estimated glomerular filtration rate calculated using the CKD-EPI refit equation. ANION GAP 13 10 - 20 mmol/L [facility] Blood 08/30/2024 1:23 PM EDT 08/30/2024 1:26 PM EDT us Ibrahima Espinoza MD LAB BLOOD BKR ORDERABLES Final Result [facility] [address] [place] [address] * Pap Test (09/04/2022 12:00 AM EDT) 09/04/2022 09/05/2022 9:3 6 AM EDT Narrative SEE NARRATIVE - 09/09/2022 10:23 AM EDT [address] [address] Airline Security Representative: Radha Phillips MD INPATIENT PHARMACIST Cytology Report FINAL DIAGNOSIS A. PAP SMEAR [...] 59, 66, 68) Note: Testing performed by [employer] HR-HPV analysis. Clinical correlation is advised. This HPV test was performed at [facility], [address] [place] [address]. This test has been FDA approved for SurePath cervical cytology specimens. The accuracy and precision of this test for all other specimen sources has been verified in the Cytopathology Laboratory of the [facility] and has not been cleared or approved by the U.S. Food and Drug Administration. Clinical correlation is advised. CLINICAL HISTORY Date of Last Menstrual Period: Not Provided Menstrual History: Unknown Other Clinical Conditions: Screening Pap SPECIMEN SOURCE A: PAP SMEAR (SUREPATH) CE Patient Name: CHICHO WILLOUGHBY : 1970 (Age: 52) Sex: F Institution: [facility] Location: [facility] Date of Collection: 09/04/2022 Date of Reported: 09/09/2022 10:23 Results to: Meredith Chen PA-C us Meredith SCOTT CYTOLOGY ORDERABLES Final Resu lt SEE NARRATIVE from Last 3 Months or Most Recently Relevant to Health Maintenance Insurance [facility] Advance Directives For more information, please contact: [phone] (9AM - 5PM [facility], Thursday-Thursday) Documents on File Type Date Recorded Patient Dye Room Helper Expl anation Healthcare Proxy 01/29/2022 9:43 AM Danny Cameron [facility] Care Proxy - RO.pdf Healthcare Agents on File Name Relationship Healthcare Agent Relationshi p Communication Danny Cameron Daughter .Primary Health Care Agent (Proxy form on file) Care Teams Central Station Operator Relationship Specialty Start Date End Date Yin Flores PA [address] [place] [address] PCP - General Frame Catcher 08/01/21 Baljit Hernandez PROPERTY APPRAISER [address] [place] [address] PHCM Senior Scientist 06/26/21 Aida Montgomery MD [address] [place] [address] [email or web address] Insurance Assigned Provider 05/06/25 Additional Source Comments The information contained in this document represents components of the legal health record. It is not the complete legal health record.[facility]
--- OUTSIDE RECORDS SUMMARY | 2025-05-26 19:36 | XMS_ITS | Encounter Summary ---
Author Organization [facility] Address [address] [facility] [address] [place] [address] Phone Care Team Providers Care Shipping Clerk/Admin Name Role Phone Baljit Hernandez Unavailable [phone] Yin Flores Primary Care Provider [phone] Aida Montgomery MD Unavailable [phone] [employer] Unavailable Reason for Referral * Outpatient Procedure - Closed Specialty Diagnoses / Procedures Referred By Niyah sanders Referred To Contact Radiology Diagnoses Abnormal ultrasound Procedures US Thyroid Gland Tim Hoover MD [address] [place] [address], [address] [place] [address] Phone: tel: fax: [email or web address] Referral ID Status Reason Start Date Expiration Date Visits Re quested Visits Authorized [id number] Closed 12/14/2024 12/14/2025 1 1 Encounter Details Date Type Department Care Team (Latest Contact Info) Description 12/14/2024 Transcribe Orders Virtual Department [address] [place], [place] [id number] Tim Hoover MD [address] [place] [address], [address] [place], [place] [phone] [email or web address] Abnormal ultrasound (Primary Dx) Social [...] Info) Description 06/01/2025 8:30 AM EST Appointment [facility], Nuclear Medicine - [address] [address] Jody Stokes MD [address] [place] [address] [place] [address] documented as of this encounter Results * US Thyroid Gland (12/19/2024 2:42 PM EDT) MGB IMG MAINTENANCE SHOP MANAGER COMMENT Thyroid FNA recommended . [facility] Anatomical Region Laterality Modality Neck, Head, Chest [...] initiated on 12/19/2024 3:36 PM, Message ID [id number]. Narrative 12/19/2024 3:38 PM EDT Procedure: US [...] (2 pts) Echogenicity: Hypoechoic (2 pts) Shape: [id number] (0) Margins: Smooth (0 pts) Echogenic Foci: [...] (2 pts) Echogenicity: Hypoechoic (2 pts) Shape: Capfh-[id number] (0) Margins: Smooth (0 pts) Echogenic Foci: [...] was initiated on 12/19/2024 3:36 PM,Message ID [id number]. us Tim Hoover MD IMG US THYROID Final Result documented in this encounter Visit Diagnoses Diagnosis Abnormal ultrasound- Primary Abnormal ultrasound documented in this encounter Additional Health Concerns Assessment Noted Time PHQ-2 Depression Total Score: 2 01/11/20 22 12:51 PM EST documented as of this encounter Care Teams Shipping Clerk/Admin Relationship Specialty Start Date End Date Yin Flores PA [address] [place] [address] PCP - General Marble Supervisor 08/01/21 Baljit Hernandez L[address] [address] [email or web address] PHCM Research And Development Tester 06/26/21 Aida Montgomery MD [address] [place] [address] [email or web address] Insurance Assigned Provider 05/06/25 [employer] [address] [place] [address] [email or web address] Research And Development Tester 04/26/25 04/26/25 documented as of this encounter Additional Source Comments The information contained in this document represents components of the legal health record. It is not the complete legal health record.[facility]
--- OUTSIDE RECORDS SUMMARY | 2025-05-26 19:36 | XMS_ITS | Encounter Summary ---
Author Organization [facility] Address [address] [place] [address] Phone Care Team Providers Care Tree Worker Name Role Phone Baljit HernandezSW Unavailable [phone] Yin Flores Primary Care Provider [phone] Aida Montgomery MD Unavailable [employer] Unavailable Encounter Details Date Type Department Care Team (Late st Contact Info) Description 11/25/2024 Procedure Pass [facility], [address] [address] Social History Tobacco Use Types Packs/Day Years [...] Info) Description 06/01/2025 8:30 AM EST Appointment [facility], Nuclear Medicine - [address] [address] Jody Stokes MD [address] [place] [address] Dr Cifuentes [address] [place] [address] documented as of this encounter Visit Diagnoses Not on filedocumented in this encounter Additional Health Concerns Assessment Noted Time PHQ-2 Depression Total Score: 2 07/02/19 22 12:51 PM EST documented as of this encounter Care Teams Tree Worker Relationship Specialty Start Date End Date Yin Flores PA [address] [place] [address] PCP - General Content Editor 08/01/21 Baljit Hernandez LICSW [address] [place] [address] PHCM Football Pad Repairer 06/26/21 Aida Montgomery MD [address] [place] [address] [email or web address] Insurance Assigned Provider 05/06/25 [employer] [address] [place] [address] [email or web address] Football Pad Repairer 04/26/25 04/26/25 documented as of this encounter Additional Source Comments The information contained in this document represents components of the legal health record. It is not the complete legal health record.[facility]
--- OUTSIDE RECORDS SUMMARY | 2025-05-26 19:36 | XMS_ITS | Encounter Summary ---
Author Organization [facility] Address [address] [facility] [address] [place] [address] Phone Care Team Providers Care Academic Computing Director Name Role Phone Baljit HernandezSW Unavailable [phone] Yin Flores Primary Care Provider [phone] Aida Montgomery MD Unavailable [phone] [employer] Unavailable Reason for Referral * Outpatient Procedure - Closed Specialty Diagnoses / Procedures Referred By Niyah sanders Referred To Contact Radiology Diagnoses TIA (transient ischemic attack) Procedures US Carotid Duplex Complete (Bilateral) Tim Hoover MD [address] [place] [address], [address] [place] [address] Phone: tel: fax: [email or web address]:[email or web address] Referral ID Status Reason Start Date Expiration Date Visits Re quested Visits Authorized [id number] Closed 11/25/2024 11/25/2025 1 1 * MRI/CAT Scan - Closed Specialty Diagnoses / Procedures Referred By Niyah sanders Referred To Contact Radiology Diagnoses Weakness of lower extremity, unspecified laterality Numbness Procedures MRI Thoracic Spine Tim Hoover MD [address] [place] [address], [address] [place] [address] Phone: tel: fax: [email or web address] Referral ID Status Reason Start Date Expiration Date Visits Re quested Visits Authorized [id number] Closed 11/25/2024 11/25/2025 1 1 Encounter Details Date Type Department Care Team (Latest Contact Info) Description 11/25/2024 Transcribe Orders Virtual Department [address] [place] [address] Tim Hoover MD [address] [place] [address], [address] [place] [address] [email or web address] Weakness of lower extremity, unspecified laterality (Primary [...] EST Appointment [facility], Nuclear Medicine - [facility] [address] [place] [address] Jody Stokes MD [address] [place] [address] Dr Cifuentes [address] [place] [address] documented as of this encounter Results * [...] clinician's provided indication for this examination in [facility]:Outside Radiology Order; weakness TECHNIQUE: MRI THORACIC SPINE [...] or enhancement in the thoracic spinal cord. Tim Hoover MD [facility] MR XSPECIALTY Final Resu lt * US Carotid Duplex Complete (Bilateral) (12/09/2024 2:45 PM EDT) Anatomical Region Laterality Modality Heart, Thoracic Vasculature, Neck Ultrasound 12/09/2024 3:30 PM EDT Narrative 12/09/2024 8:22 PM EDT US CAROTID DUPLEX COMPLETE (BILATERAL) Referring clinician's provided indication for this examination in [facility]: Outside Radiology Order; TIA TECHNIQUE: A duplex [...] documented as of this encounter Care Teams Academic Computing Director Relationship Specialty Start Date End Date Yin Flores PA [address] [place] [address] PCP - General Mate Relief 08/01/21 Baljit Hernandez LICSW [address] [place] [address] [email or web address] [facility] Paper Machine Operator 06/26/21 Aida Montgomery MD [address] [place] [address] [email or web address] Insurance Assigned Provider 05/06/25 [employer] [address] [place] [address] [email or web address] Paper Machine Operator 04/26/25 04/26/25 documented as of this encounter Additional Source Comments The information contained in this document represents components of the legal health record. It is not the complete legal health record.[facility]
--- OUTSIDE RECORDS SUMMARY | 2025-05-26 19:36 | XMS_ITS | Encounter Summary ---
Author Organization [facility] Address [address] [place] [address] Phone Care Team Providers Care Carton Inspector Name Role Phone Baljit Hernandez PROMOTION OFFICER Unavailable Yin Flores Primary Care Provider [phone] Isabella Reyes Unavailable Maribel Martinez Unavailable [email or web address] Aida Montgomery MD Unavailable [phone] [employer] Unavailable Encounter Details Date Type Department Care Team (Late st Contact Info) Description 10/23/2023 Procedure Pass [facility], [address] [address] Social History Tobacco Use Types Packs/Day Years [...] Info) Description 06/01/2025 8:30 AM EST Appointment [facility], Nuclear Medicine - [facility] [address] [place] [address] Jody Stokes MD [address] [place] [address] [place] [address] documented as of this encounter Visit Diagnoses [...] documented as of this encounter Care Teams Carton Inspector Relationship Specialty Start Date End Date Yin Flores PA [address] [place] [address] PCP - General Scheduling Manager 08/01/21 Baljit Hernandez LICSW [address] [place] [address] PHCM Butt Trimmer 06/26/21 Isabella Reyes [address] [place] [phone] [email or web address] Community Health Worker 02/02/23 09/22/24 Maribel Martinez [address] [place] [address] [email or web address] PHCM Community Surface Water Manager 03/16/24 03/16/24 Aida Montgomery MD [address] [place] [address] [email or web address] Insurance Assigned Provider 05/06/25 [employer] [address] [place] [address] [email or web address] Butt Trimmer 04/26/25 04/26/25 documented as of this encounter Additional Source Comments The information contained in this document represents components of the legal health record. It is not the complete legal health record.[facility]
[2025-05-29 03:30] LABS: Levetiracetam Keppra <2.0 mcg/mL (10.0-40.0)
== END 2025-05-26 19:34 | disposition home or self-care (01) ==
PROVIDERS: Physician Assistant Medical; Emergency Provider Student in an Organized Health Care Education/Training Program; PCP Physician Assistant Medical
DX: R56.9 Unspecified convulsions (principal); R05.9 Cough, unspecified; R10.22 Pelvic and perineal pain left side; R11.0 Nausea; R79.89 Other specified abnormal findings of blood chemistry; Z79.899 Other long term (current) drug therapy; Z51.81 Encounter for therapeutic drug level monitoring
CPT/HCPCS: 36415; 51701; 71045; 74177; 80053; 80177; 80307; 81003; 81025; 83605; 83735; 85025; 93005; 96361; 96365; 96375; 99284; J1953; J2270; J2405; Q9967

== ENCOUNTER → 2025-05-26 16:55 | Outpatient (BNV) | payer OTHER, SELFPAY | PROVIDERS: Emergency Provider Student in an Organized Health Care Education/Training Program; PCP Physician Assistant Medical; Visit Provider Radiology Diagnostic Radiology | DX: R10.31 Right lower quadrant pain (principal); R10.32 Left lower quadrant pain; R05.9 Cough, unspecified | CPT/HCPCS: 71045; 74177 ==

== ENCOUNTER → 2025-05-26 16:55 | Outpatient (BNV) | payer OTHER, SELFPAY | PROVIDERS: Emergency Provider Student in an Organized Health Care Education/Training Program; PCP Physician Assistant Medical; Visit Provider Internal Medicine | DX: R56.9 Unspecified convulsions (principal) | CPT/HCPCS: 93010 ==